=== PATIENT | female | born 1960 | race American Indian/Alaskan Native ===

== ENCOUNTER 2016-04-20 11:12 | Inpatient (IN) | payer MEDICARE ==
[2016-04-20 12:55] LABS: Basophils % (Auto) 0.7 % (0.0-1.8); Eosinophils % (Auto) 1.1 % (0.0-4.3); Hematocrit 26.4 % (30.3-42.9); Hemoglobin 8.5 gm/dl (10.1-14.3); Mean Corpuscular HGB Conc 32 % (30-34); Mean Corpuscular Hemoglobin 30 pg (28-32); Mean Corpuscular Volume 94 fl (79-97); Platelet Count 243 K/mm3 (140-440); Red Blood Count 2.82 M/mm3 (3.65-5.03); Red Cell Distribution Width 15.6 % (13.2-15.2); White Blood Count 7.7 K/mm3 (4.5-11.0)
[2016-04-20 13:15] LABS: BUN/Creatinine Ratio 15.75; Calcium 7.5 mg/dL (8.4-10.2); Chloride 103.3 mmol/L (98-107); Potassium 4.7 mmol/L (3.6-5.0)
--- NOTE | 2016-04-20 13:20 | XRay Report ---
Single view chest: Compared to 03/12/15. History: Lightheadedness, dizziness. Findings: Borderline cardiomegaly. Trachea is midline. No consolidation, pneumothorax or pleural effusion. Linear density left lower lobe without interval change. Impression: Linear density left lower lobe probably secondary to scarring. No acute lung changes.
--- NOTE | 2016-04-20 14:15 | Emergency Department Report ---
ED Syncope HPI - General Chief Complaint: Hypoglycemia Stated Complaint: PAINFUL MUSCLE SPASMS Time Seen by Provider: 04/20/16 13:36 Source: patient Exam Limitations: no limitations - History of Present Illness Initial Comments: 55 yo female with a past medical history of obesity, chronic renal insufficiency , lymphedema, CVA, DVT, hypertension, and Parkinson's disease presents to the hospital with tremors and syncopal episode. Patient was at a local urgent care taking a kidney care class when she developed worsening shaking and subsequent syncopal episode. Patient states she was trying to write with her right hand which she had significant shaking and was unable to write. She then states that bystanders told her that she fell back in the chair and was unresponsive. Accu-Chek was 43 in triage and patient given food to eat since she is alert. Patient denies any headache, chest pain, shortness of breath, nausea, vomiting, diarrhea, melena, or hematochezia. Patient has a history of diabetes in the past but due to recurrent hypoglycemia on her diabetes medications have been discontinued. Patient has been off of all diabetes medication for the past 3 months. She did not have anything to eat today prior to her kidney care class. Patient also states she has been off of her Parkinson's medications Requip for at least 2 years because her neurologist moved and her PMD has yet to refer her to a new one. Pt was diagnosed with Parkinson in the . Pt is actually scheduled to see a new PMD tomorrow. - Related Data Allergies/Adverse Reactions: Allergies clindamycin Allergy (Severe, Verified 11/05/14 13:20) Itching ibuprofen Allergy (Verified 11/03/14 08:12) Unknown Penicillins Allergy (Verified 04/20/16 11:58) Swelling pt states that she is not allergic to penicillins Home Medications: Ambulatory Orders Ranitidine HCl [Zantac 75 MG TAB] 150 mg PO QDAY 11/03/14 Tizanidine HCl [Zanaflex] 4 mg PO TID PRN 11/03/14 Topiramate [Topamax] 100 mg PO BID 11/09/14 Levothyroxine [Synthroid] 112 mcg PO DAILY@0600 03/07/15 Simvastatin [Zocor TAB] 40 mg PO QHS 03/07/15 ALBUTEROL Inhaler [ProAir HFA Inhaler] 2 puff IH QID PRN 12/10/15 Acarbose [Precose] 25 mg PO TID 12/10/15 Gabapentin [Neurontin] 300 mg PO Q8HR 12/10/15 Losartan [Cozaar] 100 mg PO QDAY 12/10/15 Metolazone [Zaroxolyn] 5 mg PO QDAY 12/10/15 Nortriptyline [Pamelor] 10 mg PO QHS 12/10/15 Ropinirole HCl [Requip] 0.5 mg PO TID 12/10/15 Torsemide [Demadex] 40 mg PO BID 12/10/15 oxyCODONE /ACETAMINOPHEN [Percocet 5/325 mg] 1 tab PO Q4HR 12/10/15 Sitagliptin Phosphate [Januvia] 50 mg PO DAILY #30 tablet 12/11/15 ED Review of Systems ROS: Stated complaint: PAINFUL MUSCLE SPASMS Other details as noted in HPI Comment: All other systems reviewed and negative Other: Constitutional: No fevers chills or weight loss Eyes: No eye pain visual changes or discharge ENT: No ear pain or throat pain Neck: Denies pain Respiratory: Denies cough wheezing shortness of breath Cardiovascular: Denies chest pain, palpitations GI: Denies abdominal pain, nausea, vomiting, diarrhea, melena, hematochezia : Denies dysuria Musculoskeletal: chronic leg edema Skin: chronic foot ulceres Neurologic: Denies headache, numbness, weakness. Chronic tremor right greater than left Psychiatric: ED Past Medical Hx - Past Medical History Hx Hypertension: Yes Hx CVA: No (TIA) Hx Congestive Heart Failure: Yes Hx Diabetes: Yes (1985, not on meds) Hx Deep Vein Thrombosis: Yes (LUE) Hx GERD: Yes Hx Arthritis: Yes Hx Headaches / Migraines: Yes Hx Seizures: No Hx Asthma: No Hx COPD: Yes Additional medical history: TIA, Parkinsons. anemia. LYMPHEDEMA - Surgical History Hx Pacemaker: No Hx Internal Defibrillator: No Additional Surgical History: x 3. carpel tunnel x 2. eye surgery. gastric bypass. thyroidectomy - Social History Smoking Status: Never Smoker - Medications Home Medications: Home Medications Medication Instructions Recorded Confirmed Last Taken Type Ranitidine HCl [Zantac 75 MG TAB] 150 mg PO QDAY 11/03/14 12/10/15 03/06/15 History Tizanidine HCl [Zanaflex] 4 mg PO TID PRN 11/03/14 12/10/15 03/06/15 History Topiramate [Topamax] 100 mg PO BID 11/09/14 12/10/15 03/06/15 History Levothyroxine [Synthroid] 112 mcg PO DAILY@0600 03/07/15 12/10/15 03/06/15 History Simvastatin [Zocor TAB] 40 mg PO QHS 03/07/15 12/10/15 03/06/15 History ALBUTEROL Inhaler [ProAir HFA 2 puff IH QID PRN 12/10/15 12/10/15 Unknown History Inhaler] Acarbose [Precose] 25 mg PO TID 12/10/15 12/10/15 Unknown History Gabapentin [Neurontin] 300 mg PO Q8HR 12/10/15 12/10/15 Unknown History Losartan [Cozaar] 100 mg PO QDAY 12/10/15 12/10/15 Unknown History Metolazone [Zaroxolyn] 5 mg PO QDAY 12/10/15 12/10/15 Unknown History Nortriptyline [Pamelor] 10 mg PO QHS 12/10/15 12/10/15 Unknown History Ropinirole HCl [Requip] 0.5 mg PO TID 12/10/15 12/10/15 Unknown History Torsemide [Demadex] 40 mg PO BID 12/10/15 12/10/15 Unknown History oxyCODONE /ACETAMINOPHEN [Percocet 1 tab PO Q4HR 12/10/15 12/10/15 Unknown History 5/325 mg] Sitagliptin Phosphate [Januvia] 50 mg PO DAILY #30 tablet 12/11/15 Unknown Rx ED Physical Exam - General Limitations: Physical Limitation - Other Other exam information: General: No limitations, patient is alert in no acute distress Head exam: Atraumatic, normocephalic Eyes exam: Normal appearance ENT: Moist mucous membrane, normal oropharynx Neck exam: Normal inspection, full range of motion Respiratory exam: Clear to auscultation bilateral, no wheezes, rales, crackles Cardiovascular: Normal rate and rhythm, normal heart sounds Abdomen: Soft, nondistended, and nontender, with normal bowel sounds, no rebound, or guarding Extremity: Bilateral lymphedema Back: Normal Inspection, full range of motion, no tenderness Neurologic: Alert, oriented x3, cranial nerves intact, no motor or sensory deficit. Intention tremor right arm greater than the left. Psychiatric: normal affect, normal mood ED Course Vital Signs 04/20/16 04/20/16 04/20/16 11:43 12:29 13:00 Temperature 98.7 F Pulse Rate 100 H 90 84 Respiratory 18 12 9 L Rate Blood Pressure 136/86 129/99 O2 Sat by Pulse 100 Oximetry 04/20/16 14:00 Temperature Pulse Rate 98 H Respiratory 17 Rate Blood Pressure 137/81 O2 Sat by Pulse Oximetry - Reevaluation(s) Reevaluation #1: 04/20/16 16:06 PT glucose improved with food - Consultations Consultation #1: 04/20/16 15:05 Case d/w Rachna/ Neprology. Will have group consult ED Medical Decision Making - Lab Data Result diagrams: 04/20/16 12:43 04/20/16 12:43 Lab Results 04/20/16 04/20/16 04/20/16 Range/Units 12:34 12:43 12:43 WBC 7.7 (4.5-11.0) K/mm3 RBC 2.82 L (3.65-5.03) M/mm3 Hgb 8.5 L (10.1-14.3) gm/dl Hct 26.4 L (30.3-42.9) % MCV 94 (79-97) fl MCH 30 (28-32) pg MCHC 32 (30-34) % RDW 15.6 H (13.2-15.2) % Plt Count 243 (140-440) K/mm3 Lymph % (Auto) 11.9 L (13.4-35.0) % [place] % (Auto) 6.4 (0.0-7.3) % Eos % (Auto) 1.1 (0.0-4.3) % Baso % (Auto) 0.7 (0.0-1.8) % Lymph # 0.9 L (1.2-5.4) K/mm3 [place] # 0.5 (0.0-0.8) K/mm3 Eos # 0.1 (0.0-0.4) K/mm3 Baso # 0.1 (0.0-0.1) K/mm3 Seg Neutrophils % 79.9 H (40.0-70.0) % Seg Neutrophils # 6.2 (1.8-7.7) K/mm3 Sodium 141 (137-145) mmol/L Potassium 4.7 (3.6-5.0) mmol/L Chloride 103.3 (98-107) mmol/L Carbon Dioxide 23 (22-30) mmol/L Anion Gap 19 mmol/L BUN 63 H (7-17) mg/dL Creatinine 4.0 H (0.7-1.2) mg/dL Estimated GFR 14 ml/min BUN/Creatinine Ratio 15.75 % Glucose 104 H (65-100) mg/dL POC Glucose 105 (70-105) Calcium 7.5 L (8.4-10.2) mg/dL Total Creatine Kinase (30-135) units/L CK-MB (CK-2) (0.0-4.0) ng/mL CK-MB (CK-2) Rel Index (0-4) Troponin T (0.00-0.029) ng/mL Triglycerides (2-149) mg/dL Cholesterol (50-199) mg/dL LDL Cholesterol Direct (50-130) mg/dL HDL Cholesterol (40-59) mg/dL Cholesterol/HDL Ratio % Urine Color (Yellow) Urine Turbidity (Clear) Urine pH (5.0-7.0) Ur Specific [place] (1.003-1.030) Urine Protein (Negative) mg/dL Urine Glucose (UA) (Negative) mg/dL Urine Ketones (Negative) mg/dL Urine Blood (Negative) Urine Nitrite (Negative) Urine Bilirubin (Negative) Urine Urobilinogen (<2.0) mg/dL Ur Leukocyte Esterase (Negative) Urine WBC (Auto) (0.0-6.0) /HPF Urine RBC (Auto) (0.0-6.0) /HPF U Epithel Cells (Auto) (0-13.0) /HPF 04/20/16 04/20/16 Range/Units 12:43 14:15 WBC (4.5-11.0) K/mm3 RBC (3.65-5.03) M/mm3 Hgb (10.1-14.3) gm/dl Hct (30.3-42.9) % MCV (79-97) fl MCH (28-32) pg MCHC (30-34) % RDW (13.2-15.2) % Plt Count (140-440) K/mm3 Lymph % (Auto) (13.4-35.0) % [place] % (Auto) (0.0-7.3) % Eos % (Auto) (0.0-4.3) % Baso % (Auto) (0.0-1.8) % Lymph # (1.2-5.4) K/mm3 [place] # (0.0-0.8) K/mm3 Eos # (0.0-0.4) K/mm3 Baso # (0.0-0.1) K/mm3 Seg Neutrophils % (40.0-70.0) % Seg Neutrophils # (1.8-7.7) K/mm3 Sodium (137-145) mmol/L Potassium (3.6-5.0) mmol/L Chloride (98-107) mmol/L Carbon Dioxide (22-30) mmol/L Anion Gap mmol/L BUN (7-17) mg/dL Creatinine (0.7-1.2) mg/dL Estimated GFR ml/min BUN/Creatinine Ratio % Glucose (65-100) mg/dL POC Glucose (70-105) Calcium (8.4-10.2) mg/dL Total Creatine Kinase 541 H (30-135) units/L CK-MB (CK-2) 12.6 H (0.0-4.0) ng/mL CK-MB (CK-2) Rel Index 2.3 (0-4) Troponin T 0.042 H (0.00-0.029) ng/mL Triglycerides 92 (2-149) mg/dL Cholesterol 177 (50-199) mg/dL LDL Cholesterol Direct 56 (50-130) mg/dL HDL Cholesterol 103 H (40-59) mg/dL Cholesterol/HDL Ratio 1.71 % Urine Color Yellow (Yellow) Urine Turbidity Clear (Clear) Urine pH 5.0 (5.0-7.0) Ur Specific [place] 1.014 (1.003-1.030) Urine Protein 100 mg/dl (Negative) mg/dL Urine Glucose (UA) Neg (Negative) mg/dL Urine Ketones Neg (Negative) mg/dL Urine Blood Neg (Negative) Urine Nitrite Neg (Negative) Urine Bilirubin Neg (Negative) Urine Urobilinogen < 2.0 (<2.0) mg/dL Ur Leukocyte Esterase Neg (Negative) Urine WBC (Auto) 1.0 (0.0-6.0) /HPF Urine RBC (Auto) 1.0 (0.0-6.0) /HPF U Epithel Cells (Auto) < 1.0 (0-13.0) /HPF - EKG Data -: EKG Interpreted by Me (nsr rate 86 no stemi) - Medical Decision Making Plan to the patient to the hospital for further observation to syncopal episode likely related to hypoglycemia. No signs of infection at this time. Patient does however have worsening renal function compared to previous creatinine levels. In Store Marketing Representative has been consulted. - Differential Diagnosis hypoglycemia, parkinsons, infection, fasting hypoglycemis Critical Care Time: No Critical care attestation.: If time is entered above; I have spent that time in minutes in the direct care of this critically ill patient, excluding procedure time. ED Disposition Clinical Impression: Tremors of nervous system, Hypoglycemia, Syncope, Acute on chronic kidney failure, Parkinsons Disposition: OP ADMITTED IP TO THIS HOSP Is pt being admited?: Yes Condition: Stable Time of Disposition: 14:19 (Dr Toure/hosp)
--- NOTE | 2016-04-20 14:26 | Admit Criteria Form ---
Admission Criteria Documentation: SYNCOPE Clinical Indications for Admission to Inpatient Care ( Place 'X' for any and all applicable criteria): Admission is indicated for syncope and ANY ONE of the following (1)(2)(3)(4)(5) (6)(7) : [X ]I. Inpatient admission required rather than observation care (Also use Syncope: Observation Care Criteria as appropriate) because of ANY ONE of the following: [ ]a) Hemodynamic instability that is severe or persistent [ ]b) Cardiac arrhythmias of immediate concern identified or strongly suspected (eg, needs electrophysiologic study) [ ]c) Acute coronary syndrome identified (Also use Myocardial Infarction or Angina Criteria form ) [ ]d) Structural cardiac disorder (eg, aortic stenosis) suspected as cause that requires immediate correction [ ]e) Respiratory symptoms (eg, dyspnea, tachypnea) that are severe or persistent [ ]f) Neurologic signs or symptoms that are severe or persistent ( eg, stroke, seizures, altered mental status) [ ]g) Severe electrolyte abnormalities requiring inpatient care [ ]h) Supplemental oxygen or respiratory treatment for over 24 hrs that are performable only in acute inpatient setting [ ]i) IV fluid to replace significant ongoing (eg, for over 24 hrs ) losses (>3 L/m2 per day) [ ]j) Continuous intravenous infusion of anticoagulation, platelet inhibitor, vasoactive, or antiarrhythmic medication(15)(16) [ ]k) Pulmonary artery catheter monitoring [ ]l) Temporary pacemaker placement(17) [ ]m) Emergent cardioversion(18) [ X]n) Other conditions, treatment or monitoring requiring inpatient admission [ ]II. Suspicion of imminently dangerous cause (eg, rare causes like pericardial tamponade, pulmonary embolism) [ ]III. Syncope causing severe injury requiring hospitalization Extended stay beyond goal length of stay may be needed for(28) [ ]a) Dangerous arrhythmia(15)(23)(27)(29) [ ]b) Myocardial ischemia [ ]c) Seizure disorder [ ]d) Syncope-related injuries The original [employer] content created by [email or web address] has been revised. The portions of the content which have been revised are identified through the use of italic text or in bold, and [email or web address] has neither reviewed nor approved the modified material. All other unmodified content is copyright [employer] [email or web address]. Please see references footnoted in the original [facility] edition 2016 Admission Criteria Met: Yes
[2016-04-20 14:32] LABS: Bilirubin,Urine NEG (Negative); Blood,Urine NEG (Negative); Ketones,Urine NEG (Negative); Leukocyte Esterase,Urine NEG (Negative); Nitrite,Urine NEG (Negative); Urobilinogen,Urine < 2.0 mg/dL (<2.0)
[2016-04-20 15:14] LABS: Creatine Kinase MB 12.6 ng/mL (0.0-4.0)
--- NOTE | 2016-04-20 16:35 | Consultation ---
History of Present Illness - History of Present Illness Thank you for the consultation Patient was evaluated in the ER room 22 Currently being followed by Dr. Montenegro in our practice noted to have advanced renal failure Assessment and plan acute renal failure in a patient who does have history of chronic kidney disease however her creatinine was around 2 in December 2015 patient's current creatinine is markedly elevated and clinically she does appear to be prerenal to me At this time I would definitely recommend holding off her diuretics as well as angiotensin receptor cristin to desist hydration obtain labs renal imaging and follow-up on the renal function in the outpatient setting patient has been referred for renal dietitian evaluation as well as kidney Smart classes well Anemia moderately severe may benefit from erythropoietin therapy consider workup including B12 folic acid iron panel, Currently admitted with syncopal spell/ ? due o hypoglycemia Tremor somewhat worse in the currently she is on gabapentin? Uremic complement Patient was recently seen by Dr. Montenegro would like to check her clinic record prior history of for chronic kidney disease, lymphedema, CVA, DVT, hypertension , Parkinson's disease Counseling and education was done regarding renal related issues we'll continue to follow and make recommendation from renal standpoint Medications and Allergies Allergies Allergy/AdvReac Type Severity Reaction Status Date / Time clindamycin Allergy Severe Itching Verified 11/05/14 13:20 ibuprofen Allergy Unknown Verified 11/03/14 08:12 Penicillins Allergy Swelling Verified 04/20/16 11:58 Home Medications Medication Instructions Recorded Confirmed Last Taken Type Ranitidine HCl [Zantac 75 MG TAB] 150 mg PO QDAY 11/03/14 04/20/16 03/06/15 History Topiramate [Topamax] 100 mg PO BID 11/09/14 04/20/16 03/06/15 History Levothyroxine [Synthroid] 112 mcg PO DAILY@0600 03/07/15 04/20/16 03/06/15 History Simvastatin [Zocor TAB] 40 mg PO QHS 03/07/15 04/20/16 03/06/15 History ALBUTEROL Inhaler [ProAir HFA 2 puff IH QID PRN 12/10/15 04/20/16 Unknown History Inhaler] Acarbose [Precose] 25 mg PO TID 12/10/15 04/20/16 Unknown History Gabapentin [Neurontin] 300 mg PO Q8HR 12/10/15 04/20/16 Unknown History Losartan [Cozaar] 100 mg PO QDAY 12/10/15 04/20/16 Unknown History Metolazone [Zaroxolyn] 5 mg PO QDAY 12/10/15 04/20/16 Unknown History Nortriptyline [Pamelor] 10 mg PO QHS 12/10/15 04/20/16 Unknown History Ropinirole HCl [Requip] 0.5 mg PO TID 12/10/15 04/20/16 Unknown History Torsemide [Demadex] 40 mg PO BID 12/10/15 04/20/16 Unknown History oxyCODONE /ACETAMINOPHEN [Percocet 1 tab PO Q4HR 12/10/15 04/20/16 Unknown History 5/325 mg] Sitagliptin Phosphate [Januvia] 50 mg PO DAILY #30 tablet 12/11/15 04/20/16 Unknown Rx Exam - Vital Signs Vital signs: Vital Signs Temp Pulse Resp BP Pulse Ox 98.7 F 100 H 18 136/86 100 04/20/16 11:43 04/20/16 11:43 04/20/16 11:43 04/20/16 11:43 04/20/16 11:43 Results - Lab Results 04/21/16 14:53 04/22/16 13:10 Most recent lab results Calcium 7.5 mg/dL (8.4-10.2) L 04/20/16 12:43
[2016-04-20] MEDS ORDERED: PERCOCET 5/325 PO ONE (17:30)
[2016-04-21] MEDS ORDERED: PROAIR IH PRN (00:58)
--- NOTE | 2016-04-21 00:58 | Event Note ---
Date: 04/20/16 See H/p in reports Syncope and collapse CKD HTN Parkinson's disease
[2016-04-21] MEDS ORDERED: PROVENTIL IH PRN (01:36)
[2016-04-21] MEDS: NEURONTIN PO SCH ×3 (03:16→17:22)
[2016-04-21] MEDS: SYNTHROID PO SCH (06:13)
--- NOTE | 2016-04-21 08:49 | Progress Note ---
Assessment and Plan acute kidney injury in a patient was multiple risk factors for underlying chronic kidney disease Patient clinically appears to be doing well and is in need for daily monitoring of her basic metabolic profile Currently she does have indwelling Wan catheter and her urine output has been good I have advised her to increase her oral intake of fluid at this time and continue to hold any form off diuretics, BERNADETTE inhibitor, angiotensin receptor cristin like medications proteinuria noted approximately 100 mg in the random specimen her creatinine usually has been in the range of 2 blood pressure has been adequately controlled Monitor renal function checked the result of renal imaging no indication for renal replacement therapy We'll continue to follow make recommendation from renal standpoint Subjective Interval history: Patient was seen today for follow-up on multiple renal related issues Events of 24 hours vitals labs intake output medications were reviewed currently does have a Wan catheter which is draining myriam to dark color urine Interdisciplinary Notes were also reviewed Patient denies any complaints of chest pain pressure or shortness of breath Objective - Vital Signs Vital signs: Vital Signs - 12hr 04/21/16 04/21/16 04/21/16 00:47 01:00 05:26 Temperature 98.1 F 97.6 F Pulse Rate 96 H Pulse Rate [ 64 86 From Monitor] Respiratory 18 20 Rate Blood Pressure 121/72 133/80 [Left Arm] O2 Sat by Pulse 100 98 Oximetry - General Appearance General appearance: appears stated age EENT: mucous membranes moist (no acute distress) Neck: no JVD Respiratory: Present: Clear to Ascultation (o crackles rales wheezes distant breath sound obese chest wall) Cardiology: regular (S1-S2 heard no S3-S4) Gastrointestinal: normal (nontender abdomen) Integumentary: other (dry skin morbidly obese legs) Neurologic: other (alert awake follows,) - Lab 04/20/16 12:43 04/20/16 12:43 Most recent lab results Calcium 7.5 mg/dL (8.4-10.2) L 04/20/16 12:43
[2016-04-21 09:16] LABS: Creatine Kinase MB 7.7 ng/mL (0.0-4.0)
[2016-04-21] MEDS ORDERED: ZAROXOLYN PO SCH (10:00)
[2016-04-21] MEDS ORDERED: DEMADEX PO SCH (10:00)
[2016-04-21] MEDS ORDERED: COZAAR PO SCH (10:00)
[2016-04-21] MEDS: TOPAMAX PO SCH ×2 (10:42→22:19)
[2016-04-21] MEDS: REQUIP PO SCH ×3 (10:43→20:58)
[2016-04-21] MEDS: PEPCID PO SCH (10:46)
[2016-04-21] MEDS: TRADJENTA PO SCH (10:46)
[2016-04-21] MEDS: PERCOCET 5/325 PO PRN ×2 (11:23→22:22)
[2016-04-21] MEDS: NACL 0.9% 1000 ML 1,000 ML IV SCH ×2 (11:40→18:36)
--- NOTE | 2016-04-21 12:11 | Ultrasound Report ---
RENAL SONOGRAM: HISTORY: Acute renal failure. FINDINGS: Right kidney measures 9.3 x 4.8 x 5.3 cm. Cortical thickness 1.5 cm. No mass. No hydronephrosis. Left kidney measures 7.4 x 4.5 x 5.5 cm. Cortical thickness 1.3 cm. No mass. No hydronephrosis. Kidneys are bilaterally hyperechoic. IMPRESSION: Bilateral hyperechoic small kidneys. No mass or hydronephrosis.
--- NOTE | 2016-04-21 13:05 | Progress Note ---
Assessment and Plan Assessment and plan: Syncope. Obtain Echocardiogram, Orthostatic vitals. On NS ESRD on hemodialysis. nephrology following. Diabetes mellitus type 2. fingerstick qac and hs. On Tradjenta. Hypertension Anemia due to ESRD DVT prophylaxis. SCDs, Heparin History Interval history: patient presented with syncope, no chest pain Hospitalist Physical - Physical exam Narrative exam: Gen. appearance: not in acute distress HEENT: Normocephalic atraumatic Neck: supple no JVD Lungs: Clear to auscultation bilaterally, no crackles or wheezes Heart: S1-S2 regular, no murmurs, rubs or gallop Abdomen:soft, non-tender, non-distended, normal bowel sounds Extremity: No edema, no clubbing, no cyanosis Neuro : Awake alert oriented 3, no focal neurologic signs Psychiatry: normal mood Skin: no rashes - Constitutional Vitals: Temp Pulse Resp BP Pulse Ox 97.8 F 89 20 151/84 100 04/21/16 10:03 04/21/16 10:54 04/21/16 10:03 04/21/16 10:44 04/21/16 10:03 Results - Labs CBC & Chem 7: 04/21/16 14:53 04/21/16 14:53 Labs: Laboratory Last Values WBC 7.7 K/mm3 (4.5-11.0) 04/20/16 12:43 RBC 2.82 M/mm3 (3.65-5.03) L 04/20/16 12:43 Hgb 8.5 gm/dl (10.1-14.3) L 04/20/16 12:43 Hct 26.4 % (30.3-42.9) L 04/20/16 12:43 MCV 94 fl (79-97) 04/20/16 12:43 MCH 30 pg (28-32) 04/20/16 12:43 MCHC 32 % (30-34) 04/20/16 12:43 RDW 15.6 % (13.2-15.2) H 04/20/16 12:43 Plt Count 243 K/mm3 (140-440) 04/20/16 12:43 Lymph % (Auto) 11.9 % (13.4-35.0) L 04/20/16 12:43 [place] % (Auto) 6.4 % (0.0-7.3) 04/20/16 12:43 Eos % (Auto) 1.1 % (0.0-4.3) 04/20/16 12:43 Baso % (Auto) 0.7 % (0.0-1.8) 04/20/16 12:43 Lymph # 0.9 K/mm3 (1.2-5.4) L 04/20/16 12:43 [place] # 0.5 K/mm3 (0.0-0.8) 04/20/16 12:43 Eos # 0.1 K/mm3 (0.0-0.4) 04/20/16 12:43 Baso # 0.1 K/mm3 (0.0-0.1) 04/20/16 12:43 Seg Neutrophils % 79.9 % (40.0-70.0) H 04/20/16 12:43 Seg Neutrophils # 6.2 K/mm3 (1.8-7.7) 04/20/16 12:43 Sodium 141 mmol/L (137-145) 04/20/16 12:43 Potassium 4.7 mmol/L (3.6-5.0) 04/20/16 12:43 Chloride 103.3 mmol/L (98-107) 04/20/16 12:43 Carbon Dioxide 23 mmol/L (22-30) 04/20/16 12:43 Anion Gap 19 mmol/L 04/20/16 12:43 BUN 63 mg/dL (7-17) H 04/20/16 12:43 Creatinine 4.0 mg/dL (0.7-1.2) H 04/20/16 12:43 Estimated GFR 14 ml/min 04/20/16 12:43 BUN/Creatinine Ratio 15.75 % 04/20/16 12:43 Glucose 104 mg/dL (65-100) H 04/20/16 12:43 POC Glucose 85 (70-105) 04/21/16 09:00 Osmolality 366 Mosm/kg 04/20/16 18:56 Uric Acid 7.4 mg/dL (3.5-7.6) 04/20/16 18:56 Calcium 7.5 mg/dL (8.4-10.2) L 04/20/16 12:43 Total Creatine Kinase 280 units/L (30-135) H 04/21/16 08:42 CK-MB (CK-2) 7.7 ng/mL (0.0-4.0) H 04/21/16 08:42 CK-MB (CK-2) Rel Index 2.7 (0-4) 04/21/16 08:42 Troponin T 0.024 ng/mL (0.00-0.029) 04/21/16 08:42 Triglycerides 92 mg/dL (2-149) 04/20/16 12:43 Cholesterol 177 mg/dL (50-199) 04/20/16 12:43 LDL Cholesterol Direct 56 mg/dL (50-130) 04/20/16 12:43 HDL Cholesterol 103 mg/dL (40-59) H 04/20/16 12:43 Cholesterol/HDL Ratio 1.71 % 04/20/16 12:43 Urine Color Yellow (Yellow) 04/20/16 14:15 Urine Turbidity Clear (Clear) 04/20/16 14:15 Urine pH 5.0 (5.0-7.0) 04/20/16 14:15 Ur Specific [place] 1.014 (1.003-1.030) 04/20/16 14:15 Urine Protein 100 mg/dl mg/dL (Negative) 04/20/16 14:15 Urine Glucose (UA) Neg mg/dL (Negative) 04/20/16 14:15 Urine Ketones Neg mg/dL (Negative) 04/20/16 14:15 Urine Blood Neg (Negative) 04/20/16 14:15 Urine Nitrite Neg (Negative) 04/20/16 14:15 Urine Bilirubin Neg (Negative) 04/20/16 14:15 Urine Urobilinogen < 2.0 mg/dL (<2.0) 04/20/16 14:15 Ur Leukocyte Esterase Neg (Negative) 04/20/16 14:15 Urine WBC (Auto) 1.0 /HPF (0.0-6.0) 04/20/16 14:15 Urine RBC (Auto) 1.0 /HPF (0.0-6.0) 04/20/16 14:15 U Epithel Cells (Auto) < 1.0 /HPF (0-13.0) 04/20/16 14:15
[2016-04-21 14:55] LABS: Bilirubin,Urine NEG (Negative); Blood,Urine SM (Negative); Ketones,Urine NEG (Negative); Leukocyte Esterase,Urine TR (Negative); Mucus,Urine FEW /HPF; Nitrite,Urine NEG (Negative); Urobilinogen,Urine < 2.0 mg/dL (<2.0)
[2016-04-21 19:00] LABS: Hematocrit 25.5 % (30.3-42.9); Hemoglobin 8.2 gm/dl (10.1-14.3); Mean Corpuscular HGB Conc 32 % (30-34); Mean Corpuscular Hemoglobin 31 pg (28-32); Mean Corpuscular Volume 95 fl (79-97); Platelet Count 231 K/mm3 (140-440); Red Blood Count 2.68 M/mm3 (3.65-5.03); Red Cell Distribution Width 15.2 % (13.2-15.2); White Blood Count 5.8 K/mm3 (4.5-11.0)
[2016-04-21 19:21] LABS: BUN/Creatinine Ratio 17.71; Calcium 7.3 mg/dL (8.4-10.2); Chloride 102.5 mmol/L (98-107)
[2016-04-21] MEDS: PAMELOR PO SCH (22:19)
[2016-04-21] MEDS: ZOCOR PO SCH (22:19)
--- NOTE | 2016-04-21 22:28 | History and Physical Report ---
CHIEF COMPLAINT: 1. Passed out. 2. Low sugar. HISTORY OF PRESENT ILLNESS: A 55-year-old female with a past medical history of hypertension, diabetes, chronic renal insufficiency, cerebrovascular accident who presents to the ER for passing out, was at local urgent care taking a ____ when she developed worsening shaking and subsequently passing out. The patient was trying to write with her right hand when she had significant shaking and was unable to write. The patient fell back in the chair and became unresponsive. Accu-Chek was 43 in triage and the patient was given food to eat. The patient has a history of diabetes in the past but due to recurrent hypoglycemia, all her diabetic medications have been discontinued. The patient also has been off her Parkinson's medications ____ at least 2 years because her neurologist moved and her PMD has had to refer her to a new one. The patient was diagnosed with Parkinson's in 1989. PAST MEDICAL HISTORY: As mentioned, gastroesophageal reflux disease, hypothyroidism, hyperlipidemia, asthma, type 2 diabetes, hypertension, CHF, and chronic pain. CURRENT MEDICATIONS: On the chart. PAST SURGICAL HISTORY: x 3, carpal tunnel surgery x 2, eye surgery, gastric bypass surgery, and thyroidectomy. SOCIAL HISTORY: Does not smoke. REVIEW OF SYSTEMS: Other than syncope, review of systems essentially negative. The patient also has a low blood sugar. A 14-point review of system was done. PHYSICAL EXAMINATION: GENERAL: Middle-aged female, cooperative during examination. VITAL SIGNS: Temperature 98.7, pulse is 100, respirations 18, blood pressure 136/86, sats are 100%. HEENT: Unremarkable. Pupils equal and reactive. NECK: Supple, no lymphadenopathy, no thyromegaly. LUNGS: Clear to auscultation and percussion. Good air entry. CARDIOVASCULAR: S1, S2 heard. No gallop, no murmur, no rub. Apical impulse in left fifth intercostal space and midclavicular line. ABDOMEN: Soft and benign. No hepatosplenomegaly. No guarding, no rigidity. Hernial orifices are normal. EXTREMITIES: Good pedal pulses. No pedal edema. NEUROLOGIC: No focal deficits. LABORATORY DATA IMAGING STUDIES: EKG shows a normal sinus rhythm at 86, no ST-T wave changes. Labs are significant for glucose of 104, BUN and creatinine of 63 and 4.0. Hemoglobin of 8.5, hematocrit of 26.4. Electrolytes are normal other than BUN and creatinine. Calcium is 7.5. Urine is negative. ASSESSMENT AND PLAN: 1. Syncope, probably secondary to hypoglycemia effect. We will correct the hypoglycemia. 2. Hypoglycemia. Adjust her medications. The patient is not on any oral hypoglycemics. The patient on acarbose, Precose, which may have to be decreased to twice a day. 3. Hypertension. Continue losartan 100 mg daily. 4. Hypothyroidism. Continue Synthroid 112 mcg daily. 5. Chronic kidney disease, going on to end-stage renal disease. Follow up with Nephrology. 6. Deep venous thrombosis prophylaxis, heparin 5000 b.i.d. In summary, the patient has syncope, hypoglycemia, chronic kidney disease, non-insulin dependent diabetes, hypertension, gastroesophageal reflux disease and parkinsonism. Carotid duplex scan ordered. Also, echocardiogram ordered. JOB# [id number] HEMA/NTS
[2016-04-22] MEDS: NEURONTIN PO SCH ×3 (02:01→18:53)
[2016-04-22] MEDS: NACL 0.9% 1000 ML 1,000 ML IV SCH ×2 (02:03→21:41)
[2016-04-22] MEDS: SYNTHROID PO SCH (05:58)
--- NOTE | 2016-04-22 09:54 | Progress Note ---
Assessment and Plan Acute kidney injury in a patient who does have history of underlying chronic kidney disease, patient's creatinine is currently improving was 3.5 yesterday Patient's baseline creatinine has been between 2 and 3 admitted with creatinine of approximately 4 Metabolic acidosis appears to be improving as well ultrasonogram shows echogenic kidneys to follow Proteinuria likely due to advanced kidney failure to follow Anemia and chronic kidney disease will give erythropoietin on a weekly basis Patient was still continuing to take diuretics as well as angiotensin receptor cristin which was discontinued Currently she seems to be tolerating IV fluid will urine color has become optical effects layout person she continues to have a Wan catheter that should be continued I have educated the patient had a pH she has any symptoms of cough shortness of breath will consider reducing the IV fluid otherwise continue as for now follow- up of the renal function Subjective Interval history: Patient was seen today for follow-up,tolerating IV fluid will urine is optical effects layout person in color no shortness of breath cough or wheezing Seems to be doing better has better understanding of renal issues Denies any complaints of chest pain pressure or shortness of breath Vitals labs events at 24 hours noted Objective - Vital Signs Vital signs: Vital Signs - 12hr 04/21/16 04/22/16 04/22/16 22:22 01:00 06:16 Temperature 98.4 F 98.2 F Pulse Rate [ 89 88 From Monitor] Respiratory 20 18 18 Rate Blood Pressure 131/67 136/71 [Left Arm] O2 Sat by Pulse 94 95 Oximetry - General Appearance General appearance: appears stated age EENT: mucous membranes moist Neck: no JVD Cardiology: regular Gastrointestinal: normal (morbidly obese nontender limited examination) Neurologic: no focal deficit Psychiatric: mood/affect appropriate - Lab 04/21/16 14:53 04/22/16 13:10 Most recent lab results Calcium 7.3 mg/dL (8.4-10.2) L 04/21/16 14:53 Urine Creatinine 39.3 mg/dL (0.1-20.0) H 04/21/16 14:24 Urine Sodium 96 mEq/L 04/21/16 14:24
[2016-04-22] MEDS: REQUIP PO SCH ×3 (10:26→20:58)
[2016-04-22] MEDS: PEPCID PO SCH (10:26)
[2016-04-22] MEDS: TOPAMAX PO SCH ×2 (10:26→21:40)
[2016-04-22] MEDS: HEPARIN SUB-Q SCH ×3 (10:26→21:41)
[2016-04-22] MEDS: TRADJENTA PO SCH (10:26)
[2016-04-22 13:44] LABS: BUN/Creatinine Ratio 16.11; Calcium 7.3 mg/dL (8.4-10.2); Chloride 105.4 mmol/L (98-107)
--- NOTE | 2016-04-22 15:31 | Progress Note ---
Assessment and Plan Assessment and plan: Syncope. Most syncopal episodes since admitted. Cardiology done report pending. Prostatic vitals every 8 hours. Continue normal saline. Acute on chronic kidney disease. Creatinine 3.6 today. Nephrology following. She is on NS @ 150 ml/hr. Diabetes mellitus type 2. fingerstick Qac and hs. On Tradjenta. Hypertension. Anemia due to chronic illness DVT prophylaxis. SCDs, Heparin Bilateral foot ulcers, chronic. She is being seen seen by wound care nurse Full code status History Interval history: patient presented with syncope, no chest pain Hospitalist Physical - Physical exam Narrative exam: Gen. appearance: not in acute distress, morbidly obese HEENT: Normocephalic atraumatic Neck: supple no JVD Lungs: Clear to auscultation bilaterally, no crackles or wheezes Heart: S1-S2 regular, no murmurs, rubs or gallop Abdomen:soft, non-tender, non-distended, normal bowel sounds Extremity: bilateral foot ulcers, covered with dressing, No edema, no clubbing, no cyanosis Neuro : Awake alert oriented 3, no focal neurologic signs Psychiatry: normal mood Skin: no rashes - Constitutional Vitals: Temp Pulse Resp BP Pulse Ox 98.1 F 84 20 125/75 97 04/22/16 10:15 04/22/16 10:15 04/22/16 10:15 04/22/16 10:15 04/22/16 10:15 Results - Labs CBC & Chem 7: 04/21/16 14:53 04/22/16 13:10 Labs: Laboratory Last Values WBC 5.8 K/mm3 (4.5-11.0) 04/21/16 14:53 RBC 2.68 M/mm3 (3.65-5.03) L 04/21/16 14:53 Hgb 8.2 gm/dl (10.1-14.3) L 04/21/16 14:53 Hct 25.5 % (30.3-42.9) L 04/21/16 14:53 MCV 95 fl (79-97) 04/21/16 14:53 MCH 31 pg (28-32) 04/21/16 14:53 MCHC 32 % (30-34) 04/21/16 14:53 RDW 15.2 % (13.2-15.2) 04/21/16 14:53 Plt Count 231 K/mm3 (140-440) 04/21/16 14:53 Lymph % (Auto) 11.9 % (13.4-35.0) L 04/20/16 12:43 [place] % (Auto) 6.4 % (0.0-7.3) 04/20/16 12:43 Eos % (Auto) 1.1 % (0.0-4.3) 04/20/16 12:43 Baso % (Auto) 0.7 % (0.0-1.8) 04/20/16 12:43 Lymph # 0.9 K/mm3 (1.2-5.4) L 04/20/16 12:43 Glenn # 0.5 K/mm3 (0.0-0.8) 04/20/16 12:43 Eos # 0.1 K/mm3 (0.0-0.4) 04/20/16 12:43 Baso # 0.1 K/mm3 (0.0-0.1) 04/20/16 12:43 Seg Neutrophils % 79.9 % (40.0-70.0) H 04/20/16 12:43 Seg Neutrophils # 6.2 K/mm3 (1.8-7.7) 04/20/16 12:43 Sodium 141 mmol/L (137-145) 04/22/16 13:10 Potassium 4.0 mmol/L (3.6-5.0) 04/22/16 13:10 Chloride 105.4 mmol/L (98-107) 04/22/16 13:10 Carbon Dioxide 23 mmol/L (22-30) 04/22/16 13:10 Anion Gap 17 mmol/L 04/22/16 13:10 BUN 58 mg/dL (7-17) H 04/22/16 13:10 Creatinine 3.6 mg/dL (0.7-1.2) H 04/22/16 13:10 Estimated GFR 16 ml/min 04/22/16 13:10 BUN/Creatinine Ratio 16.11 % 04/22/16 13:10 Glucose 112 mg/dL (65-100) H 04/22/16 13:10 POC Glucose 144 (70-105) H 04/22/16 07:51 Osmolality 366 Mosm/kg 04/20/16 18:56 Uric Acid 7.4 mg/dL (3.5-7.6) 04/20/16 18:56 Calcium 7.3 mg/dL (8.4-10.2) L 04/22/16 13:10 Total Creatine Kinase 280 units/L (30-135) H 04/21/16 08:42 CK-MB (CK-2) 7.7 ng/mL (0.0-4.0) H 04/21/16 08:42 CK-MB (CK-2) Rel Index 2.7 (0-4) 04/21/16 08:42 Troponin T 0.024 ng/mL (0.00-0.029) 04/21/16 08:42 Triglycerides 92 mg/dL (2-149) 04/20/16 12:43 Cholesterol 177 mg/dL (50-199) 04/20/16 12:43 LDL Cholesterol Direct 56 mg/dL (50-130) 04/20/16 12:43 HDL Cholesterol 103 mg/dL (40-59) H 04/20/16 12:43 Cholesterol/HDL Ratio 1.71 % 04/20/16 12:43 Urine Color Straw (Yellow) 04/21/16 14:24 Urine Turbidity Clear (Clear) 04/21/16 14:24 Urine pH 6.0 (5.0-7.0) 04/21/16 14:24 Ur Specific [place] 1.012 (1.003-1.030) 04/21/16 14:24 Urine Protein 100 mg/dl mg/dL (Negative) 04/21/16 14:24 Urine Glucose (UA) Neg mg/dL (Negative) 04/21/16 14:24 Urine Ketones Neg mg/dL (Negative) 04/21/16 14:24 Urine Blood Sm (Negative) 04/21/16 14:24 Urine Nitrite Neg (Negative) 04/21/16 14:24 Urine Bilirubin Neg (Negative) 04/21/16 14:24 Urine Urobilinogen < 2.0 mg/dL (<2.0) 04/21/16 14:24 Ur Leukocyte Esterase Tr (Negative) 04/21/16 14:24 Urine WBC (Auto) 8.0 /HPF (0.0-6.0) H 04/21/16 14:24 Urine RBC (Auto) 7.0 /HPF (0.0-6.0) 04/21/16 14:24 U Epithel Cells (Auto) < 1.0 /HPF (0-13.0) 04/21/16 14:24 Urine Mucus Few /HPF 04/21/16 14:24 Urine Creatinine 39.3 mg/dL (0.1-20.0) H 04/21/16 14:24 Urine Sodium 96 mEq/L 04/21/16 14:24
[2016-04-22] MEDS: ACARBOSE PO SCH (21:40)
[2016-04-22] MEDS: ZOCOR PO SCH (21:40)
[2016-04-22] MEDS: PAMELOR PO SCH (21:40)
[2016-04-23] MEDS: NEURONTIN PO SCH ×3 (02:00→18:34)
[2016-04-23] MEDS: NACL 0.9% 1000 ML 1,000 ML IV SCH (05:01)
[2016-04-23] MEDS: SYNTHROID PO SCH (05:13)
[2016-04-23] MEDS: HEPARIN SUB-Q SCH ×3 (05:13→21:21)
[2016-04-23] MEDS: PERCOCET 5/325 PO PRN (05:18)
[2016-04-23 05:58] LABS: BUN/Creatinine Ratio 16.76; Calcium 7.2 mg/dL (8.4-10.2); Chloride 108.5 mmol/L (98-107)
--- NOTE | 2016-04-23 07:59 | Progress Note ---
Assessment and Plan Acute renal failure in a patient who has known history of chronic kidney disease Patient's baseline creatinine has been around 2.6 and December 2015 Patient clinically appeared prerenal and has benefited from IV hydration does not have best to suggest acute tubular necrosis at this time Avoid diuretics as well as angiotensin receptor cristin or BERNADETTE inhibitor as like medication at this time Anemia and chronic kidney disease patient did receive erythropoietin Reduce the rate of hydration and encourage oral fluid-tomorrow Mild hypernatremia to be monitored She needs to be followed up in the clinic upon discharge-which should be done after creatinine has come down under 3 Education was done patient is very poorly compliant We'll continue to follow and make recommendations from renal standpoint Subjective Interval history: Seen today for follow-up patient still continues to have good urine output with the Wan catheter No complaints of any chest pain pressure or shortness of breath Events of 24 hours vitals labs intake output medications reviewed Objective - Vital Signs Vital signs: Vital Signs - 12hr 04/22/16 04/23/16 04/23/16 20:09 00:43 05:18 Temperature 98.5 F 97.6 F Pulse Rate [ 89 84 Left Radial] Respiratory 20 18 20 Rate Blood Pressure 146/82 121/68 [Left Arm] O2 Sat by Pulse 95 99 Oximetry 04/23/16 05:37 Temperature 98.2 F Pulse Rate [ 86 Left Radial] Respiratory 18 Rate Blood Pressure 148/63 [Left Arm] O2 Sat by Pulse 94 Oximetry - General Appearance General appearance: well-nourished (agrees) EENT: mucous membranes moist Neck: no JVD Respiratory: Present: Clear to Ascultation (no crackles rales wheezes) Cardiology: regular Gastrointestinal: normal (soft of these nontender) Integumentary: other (dry skin minimal edema) Psychiatric: other (alert and pleasant) - Lab 04/21/16 14:53 04/24/16 05:36 Most recent lab results Calcium 7.2 mg/dL (8.4-10.2) L 04/23/16 05:06 Urine Creatinine 39.3 mg/dL (0.1-20.0) H 04/21/16 14:24 Urine Sodium 96 mEq/L 04/21/16 14:24
[2016-04-23] MEDS: REQUIP PO SCH ×3 (09:07→21:21)
[2016-04-23] MEDS: ACARBOSE PO SCH ×3 (09:10→16:47)
[2016-04-23] MEDS: TRADJENTA PO SCH (10:43)
[2016-04-23] MEDS: TOPAMAX PO SCH ×2 (10:43→21:21)
[2016-04-23] MEDS: PEPCID PO SCH (10:43)
--- NOTE | 2016-04-23 17:22 | Progress Note ---
Assessment and Plan Assessment and plan: Syncope. No syncopal episodes since admitted. Orthostatic vitals every 8 hours. Continue normal saline. Acute on chronic kidney disease. Creatinine 3.4 today. Nephrology following. She is on NS @ 150 ml/hr. Diabetes mellitus type 2. fingerstick Qac and hs. On Tradjenta. Hypertension. Anemia due to chronic illness DVT prophylaxis. SCDs, Heparin Bilateral foot ulcers, chronic. She is being seen seen by wound care nurse Full code status History Interval history: patient presented with syncope, no chest pain, no shortness of breath Hospitalist Physical - Physical exam Narrative exam: Gen appearance: not in acute distress, morbidly obese HEENT: Normocephalic, atraumatic Neck: supple no JVD Lungs: Clear to auscultation bilaterally, no crackles or wheezes Heart: S1-S2 regular, no murmurs, rubs or gallop Abdomen: soft, non-tender, non-distended, normal bowel sounds Extremity: bilateral foot ulcers, covered with dressing, No edema, no clubbing, no cyanosis Neuro : Awake alert oriented 3, no focal neurologic signs Psychiatry: normal mood Skin: no rashes - Constitutional Vitals: Temp Pulse Resp BP Pulse Ox 97.9 F 81 20 152/84 96 04/23/16 08:05 04/23/16 11:00 04/23/16 08:05 04/23/16 08:05 04/23/16 08:05 Results - Labs CBC & Chem 7: 04/21/16 14:53 04/23/16 05:06 Labs: Laboratory Last Values WBC 5.8 K/mm3 (4.5-11.0) 04/21/16 14:53 RBC 2.68 M/mm3 (3.65-5.03) L 04/21/16 14:53 Hgb 8.2 gm/dl (10.1-14.3) L 04/21/16 14:53 Hct 25.5 % (30.3-42.9) L 04/21/16 14:53 MCV 95 fl (79-97) 04/21/16 14:53 MCH 31 pg (28-32) 04/21/16 14:53 MCHC 32 % (30-34) 04/21/16 14:53 RDW 15.2 % (13.2-15.2) 04/21/16 14:53 Plt Count 231 K/mm3 (140-440) 04/21/16 14:53 Lymph % (Auto) 11.9 % (13.4-35.0) L 04/20/16 12:43 [place] % (Auto) 6.4 % (0.0-7.3) 04/20/16 12:43 Eos % (Auto) 1.1 % (0.0-4.3) 04/20/16 12:43 Baso % (Auto) 0.7 % (0.0-1.8) 04/20/16 12:43 Lymph # 0.9 K/mm3 (1.2-5.4) L 04/20/16 12:43 [place] # 0.5 K/mm3 (0.0-0.8) 04/20/16 12:43 Eos # 0.1 K/mm3 (0.0-0.4) 04/20/16 12:43 Baso # 0.1 K/mm3 (0.0-0.1) 04/20/16 12:43 Seg Neutrophils % 79.9 % (40.0-70.0) H 04/20/16 12:43 Seg Neutrophils # 6.2 K/mm3 (1.8-7.7) 04/20/16 12:43 Sodium 146 mmol/L (137-145) H 04/23/16 05:06 Potassium 4.0 mmol/L (3.6-5.0) 04/23/16 05:06 Chloride 108.5 mmol/L (98-107) H 04/23/16 05:06 Carbon Dioxide 23 mmol/L (22-30) 04/23/16 05:06 Anion Gap 19 mmol/L 04/23/16 05:06 BUN 57 mg/dL (7-17) H 04/23/16 05:06 Creatinine 3.4 mg/dL (0.7-1.2) H 04/23/16 05:06 Estimated GFR 17 ml/min 04/23/16 05:06 BUN/Creatinine Ratio 16.76 % 04/23/16 05:06 Glucose 91 mg/dL (65-100) 04/23/16 05:06 POC Glucose 107 (70-105) H 04/22/16 20:23 Osmolality 366 Mosm/kg 04/20/16 18:56 Uric Acid 7.4 mg/dL (3.5-7.6) 04/20/16 18:56 Calcium 7.2 mg/dL (8.4-10.2) L 04/23/16 05:06 Total Creatine Kinase 280 units/L (30-135) H 04/21/16 08:42 CK-MB (CK-2) 7.7 ng/mL (0.0-4.0) H 04/21/16 08:42 CK-MB (CK-2) Rel Index 2.7 (0-4) 04/21/16 08:42 Troponin T 0.024 ng/mL (0.00-0.029) 04/21/16 08:42 Triglycerides 92 mg/dL (2-149) 04/20/16 12:43 Cholesterol 177 mg/dL (50-199) 04/20/16 12:43 LDL Cholesterol Direct 56 mg/dL (50-130) 04/20/16 12:43 HDL Cholesterol 103 mg/dL (40-59) H 04/20/16 12:43 Cholesterol/HDL Ratio 1.71 % 04/20/16 12:43 Urine Color Straw (Yellow) 04/21/16 14:24 Urine Turbidity Clear (Clear) 04/21/16 14:24 Urine pH 6.0 (5.0-7.0) 04/21/16 14:24 Ur Specific [place] 1.012 (1.003-1.030) 04/21/16 14:24 Urine Protein 100 mg/dl mg/dL (Negative) 04/21/16 14:24 Urine Glucose (UA) Neg mg/dL (Negative) 04/21/16 14:24 Urine Ketones Neg mg/dL (Negative) 04/21/16 14:24 Urine Blood Sm (Negative) 04/21/16 14:24 Urine Nitrite Neg (Negative) 04/21/16 14:24 Urine Bilirubin Neg (Negative) 04/21/16 14:24 Urine Urobilinogen < 2.0 mg/dL (<2.0) 04/21/16 14:24 Ur Leukocyte Esterase Tr (Negative) 04/21/16 14:24 Urine WBC (Auto) 8.0 /HPF (0.0-6.0) H 04/21/16 14:24 Urine RBC (Auto) 7.0 /HPF (0.0-6.0) 04/21/16 14:24 U Epithel Cells (Auto) < 1.0 /HPF (0-13.0) 04/21/16 14:24 Urine Mucus Few /HPF 04/21/16 14:24 Urine Creatinine 39.3 mg/dL (0.1-20.0) H 04/21/16 14:24 Urine Sodium 96 mEq/L 04/21/16 14:24
[2016-04-23] MEDS: PAMELOR PO SCH (21:20)
[2016-04-23] MEDS: ZOCOR PO SCH (21:21)
--- NOTE | 2016-04-23 22:31 | Consultation ---
REQUESTING PHYSICIAN: Aleksey Mcdermott MD REASON FOR CONSULTATION: Acute renal failure in a patient whose baseline creatinine is around 2s. HISTORY OF PRESENT ILLNESS: The patient is a pleasant 55-year-old -Greek female who is currently established in our clinic for chronic kidney disease care. The patient states that she was recently seen by Dr. Montenegro and at this time, she is preparing for dialysis as her renal function has been going down and she was also supposed to attend the [facility]. Review of the old records in our system shows that the patient's creatinine was around 2.3 in 12/2015 and currently she is being admitted with a creatinine of 4.0. The patient states that she is currently continuing to take all her medications I have advised including losartan, metolazone due to significant edema. She does admit having very poor lifestyle and eating habit. The patient does also complain of some dryness in her mouth. She also does complain of some increasing tremors in her hand, for which she has been seen by a prior neurologist and has been told to have a touch of Parkinson's disease for quite some time. The patient does not complain of any nausea. The patient came to the hospital due to profound hypoglycemia and significant muscle spasm. The patient states that prior to arrival, she started having shaking and subsequently had a syncopal spell. Blood sugar was around 43 in the triage when in the ER, the patient currently is feeling much better. PAST MEDICAL HISTORY: Significant for multiple medical problems including; 1. Chronic kidney disease. 2. Edema. 3. Chronic pain issues. 4. Hypothyroidism. 5. CVA. 6. DVT. 7. Parkinson's disease. 8. Obesity, morbid. 9. TIA. 10. Lymphedema. CURRENT ALLERGIES: Include clindamycin, ibuprofen, and penicillin. HOME MEDICATIONS: Include Zantac, tizanidine, topiramate, levothyroxine, simvastatin, albuterol, Acarbose, gabapentin, losartan, metolazone, nortriptyline, ____, torsemide, oxycodone, and sitagliptin. SOCIAL HISTORY: The patient denies history of alcohol, drug, or tobacco use. FAMILY HISTORY: Denies any history of any renal related disorder. REVIEW OF SYSTEMS: Positive for shaking, dizziness, lightheadedness, hypoglycemic spell dry mouth. Otherwise, essentially negative for all the other systems. No difficulty voiding, dysuria, burning, frequency of urination. PHYSICAL EXAMINATION: GENERAL: The patient is a 55-year-old -Greek female who is lying comfortably in bed, does not appear in acute distress. VITAL SIGNS: Reviewed from this admission. HEENT: Normocephalic and atraumatic skull. Extraocular movements are intact. NECK: Supple without thyromegaly or JVD. CHEST: Essentially clear to auscultation. No crackles, rales, or wheezes. HEART: Regular rate. S1, S2 heard. No S3 or S4. ABDOMEN: Soft, nontender. No voluntary guarding, rebound, organomegaly, or masses. Morbidly obese, limited examination due to obesity. EXTREMITIES: Morbidly obese legs. SKIN: Dry skin, reduced skin turgor. ENDOCRINE: Thyroid not enlarged. PSYCHIATRIC: The patient is pleasant. LABS AND X-RAYS: As of this admission reviewed. The patient's blood work shows a BUN of 63, creatinine of 4.0, sodium 141, potassium 4.7, chloride 103, bicarbonate 23. White cell count 7.7, hemoglobin 8.5, hematocrit 26.4, platelet count of 243,000. ASSESSMENT AND PLAN: 1. Acute kidney injury in a patient who has a history of chronic kidney disease, baseline creatinine is around 2 in December. The patient's creatinine is markedly elevated. She also does appear to be prerenal at this point. Need to rule out other causes for renal failure. We will get a comprehensive lab testing. Risk of progression to end-stage renal disease high, the patient may require renal replacement therapy if her renal function does not improve. 2. Clinically, appears to be volume depleted, admitted with hypoglycemia, which could be worsened due to underlying renal failure, which is also progressing in the setting of ongoing and oral hypoglycemic agents. 3. History of edema, but the patient does have morbid obesity, which can cause some edema. At this time, she does appear to be volume depleted and hence would like to stop her diuretics. 4. Due to acute renal failure, we will also consider discontinuing her losartan, so please do not give. Also, avoid any form of BERNADETTE inhibitors and angiotensin receptor blockers. 5. Anemia, moderately severe. We will check iron, B12, folic acid level. Management with erythropoietin therapy. 6. Currently admitted for a syncopal spell, hypoglycemia, to be monitored closely. 7. Tremors worsen ? due to uremia ? due to neurological problems. The patient was already on gabapentin. Plan of care discussed with the patient. All questions were answered. Renal prognosis remains very guarded at this time. Given the degree and severity of this renal failure, the patient may require renal replacement therapy. She is aware of that. At this time, we will advise that she should not receive any form of angiotensin receptor blockers or BERNADETTE inhibitors to keep her blood pressure systolic around 140-150. Monitor renal function closely, consider IV hydration. If renal function fails to improve, can consider renal replacement therapy, likelihood of ____ coverage good at this point. The patient needs to make significant lifestyle changes. She does have multiple risk factors for progression of renal failure over time otherwise, upon discharge will need to follow up in the office. Thank you for the consultation. We will continue to follow and make recommendations from renal standpoint. JOB# [id number] YOKO/ANNETTE
[2016-04-24] MEDS: SYNTHROID PO SCH (05:09)
[2016-04-24] MEDS: NEURONTIN PO SCH ×3 (05:10→21:35)
[2016-04-24] MEDS: HEPARIN SUB-Q SCH ×3 (05:10→21:35)
[2016-04-24] MEDS: PERCOCET 5/325 PO PRN (06:08)
[2016-04-24 06:58] LABS: BUN/Creatinine Ratio 17.18; Calcium 7.6 mg/dL (8.4-10.2); Chloride 106.8 mmol/L (98-107); Potassium 3.7 mmol/L (3.6-5.0)
[2016-04-24] MEDS: REQUIP PO SCH ×3 (08:48→21:35)
[2016-04-24] MEDS: ACARBOSE PO SCH ×3 (08:48→17:33)
[2016-04-24] MEDS: PEPCID PO SCH (09:30)
[2016-04-24] MEDS: TRADJENTA PO SCH (09:31)
[2016-04-24] MEDS: TOPAMAX PO SCH ×2 (09:31→21:35)
--- NOTE | 2016-04-24 11:16 | Progress Note ---
Assessment and Plan Acute kidney failure in a patient who has history of underlying chronic kidney disease currently being followed by Dr. Montenegro patient's baseline creatinine has been around 2.5-2.7 range admitted with a creatinine of 4 patient was felt to be prerenal mostly due to losartan as well as ongoing use of diuretics which has been stopped Patient's renal function appears to be improving at this time and is further risk of improvement she is going to change her diet and lifestyle and make a follow-up appointment office At this time I have instructed her to avoid excessive use of sodium, reduce fluid to approximately 2-3 L per day plain water and avoid any form of angiotensin receptor cristin or BERNADETTE inhibitor is Monitor closely her weight patient needs to be seen in the clinic for follow-up next week Overall she's doing much better if tomorrow her creatinine is better she can be considered for discharge Prognosis will depend on degree of compliance Have answered all her renal related questions and have adequately counseled her regarding role of diet and lifestyle changes that she has to make Subjective Interval history: Seen today for follow-up doing much better Wan's taken out she is alert awake no acute distress no chest pain Urine output is good vitals labs intake output medications were reviewed Objective - Vital Signs Vital signs: Vital Signs - 12hr 04/24/16 04/24/16 04/24/16 01:14 03:30 06:00 Temperature 98.2 F 98.1 F Pulse Rate 82 Pulse Rate [ Right Dorsalis Pedis] Pulse Rate [ 86 84 Right Radial] Respiratory 18 20 Rate Blood Pressure 146/97 146/94 [Left Arm] O2 Sat by Pulse 94 93 Oximetry 04/24/16 04/24/16 08:15 10:00 Temperature 97.9 F Pulse Rate 79 Pulse Rate [ 81 Right Dorsalis Pedis] Pulse Rate [ Right Radial] Respiratory 20 Rate Blood Pressure 158/94 [Left Arm] O2 Sat by Pulse 97 Oximetry - General Appearance General appearance: appears stated age EENT: mucous membranes moist Neck: no JVD Respiratory: Present: Clear to Ascultation Cardiology: regular Gastrointestinal: normal (soft nontender obese) Integumentary: other (dry skin no edema) Neurologic: other (alert awake follows commands) - Lab 04/21/16 14:53 04/24/16 05:36 Most recent lab results Calcium 7.6 mg/dL (8.4-10.2) L 04/24/16 05:36 Urine Creatinine 39.3 mg/dL (0.1-20.0) H 04/21/16 14:24 Urine Sodium 96 mEq/L 04/21/16 14:24
--- NOTE | 2016-04-24 12:04 | Progress Note ---
Assessment and Plan Assessment and plan: Syncope. No syncopal episodes since admitted. Orthostatic vitals every 8 hours. IV fluid NS discontinued. Acute on chronic kidney disease. Creatinine 3.2 today from 3.4 yesterday. Nephrology following. Hopefully d/c home tomorrow if Cr<3 Diabetes mellitus type 2. fingerstick Qac and hs. On Tradjenta. Hypertension. Anemia due to chronic illness DVT prophylaxis. SCDs, Heparin Bilateral foot ulcers, chronic. She is being seen seen by wound care nurse Full code status History Interval history: patient initially presented with syncope, no chest pain, no shortness of breath Hospitalist Physical - Physical exam Narrative exam: Gen appearance: not in acute distress, morbidly obese HEENT: Normocephalic, atraumatic Neck: supple no JVD Lungs: Clear to auscultation bilaterally, no crackles or wheezes Heart: S1-S2 regular, no murmurs, rubs or gallop Abdomen: soft, non-tender, non-distended, normal bowel sounds Extremity: bilateral foot ulcers, covered with dressing, No edema, no clubbing, no cyanosis Neuro : Awake alert oriented 3, no focal neurologic signs Psychiatry: normal mood Skin: no rashes - Constitutional Vitals: Temp Pulse Resp BP Pulse Ox 97.9 F 79 20 158/94 97 04/24/16 08:15 04/24/16 10:00 04/24/16 08:15 04/24/16 08:15 04/24/16 08:15 Results - Labs CBC & Chem 7: 04/21/16 14:53 04/24/16 05:36 Labs: Laboratory Last Values WBC 5.8 K/mm3 (4.5-11.0) 04/21/16 14:53 RBC 2.68 M/mm3 (3.65-5.03) L 04/21/16 14:53 Hgb 8.2 gm/dl (10.1-14.3) L 04/21/16 14:53 Hct 25.5 % (30.3-42.9) L 04/21/16 14:53 MCV 95 fl (79-97) 04/21/16 14:53 MCH 31 pg (28-32) 04/21/16 14:53 MCHC 32 % (30-34) 04/21/16 14:53 RDW 15.2 % (13.2-15.2) 04/21/16 14:53 Plt Count 231 K/mm3 (140-440) 04/21/16 14:53 Lymph % (Auto) 11.9 % (13.4-35.0) L 04/20/16 12:43 [place] % (Auto) 6.4 % (0.0-7.3) 04/20/16 12:43 Eos % (Auto) 1.1 % (0.0-4.3) 04/20/16 12:43 Baso % (Auto) 0.7 % (0.0-1.8) 04/20/16 12:43 Lymph # 0.9 K/mm3 (1.2-5.4) L 04/20/16 12:43 [place] # 0.5 K/mm3 (0.0-0.8) 04/20/16 12:43 Eos # 0.1 K/mm3 (0.0-0.4) 04/20/16 12:43 Baso # 0.1 K/mm3 (0.0-0.1) 04/20/16 12:43 Seg Neutrophils % 79.9 % (40.0-70.0) H 04/20/16 12:43 Seg Neutrophils # 6.2 K/mm3 (1.8-7.7) 04/20/16 12:43 Sodium 142 mmol/L (137-145) 04/24/16 05:36 Potassium 3.7 mmol/L (3.6-5.0) 04/24/16 05:36 Chloride 106.8 mmol/L (98-107) 04/24/16 05:36 Carbon Dioxide 24 mmol/L (22-30) 04/24/16 05:36 Anion Gap 19 mmol/L 04/23/16 05:06 BUN 55 mg/dL (7-17) H 04/24/16 05:36 Creatinine 3.2 mg/dL (0.7-1.2) H 04/24/16 05:36 Estimated GFR 18 ml/min 04/24/16 05:36 BUN/Creatinine Ratio 17.18 % 04/24/16 05:36 Glucose 122 mg/dL (65-100) H 04/24/16 05:36 POC Glucose 124 (70-105) H 04/23/16 22:09 Osmolality 366 Mosm/kg 04/20/16 18:56 Uric Acid 7.4 mg/dL (3.5-7.6) 04/20/16 18:56 Calcium 7.6 mg/dL (8.4-10.2) L 04/24/16 05:36 Total Creatine Kinase 280 units/L (30-135) H 04/21/16 08:42 CK-MB (CK-2) 7.7 ng/mL (0.0-4.0) H 04/21/16 08:42 CK-MB (CK-2) Rel Index 2.7 (0-4) 04/21/16 08:42 Troponin T 0.024 ng/mL (0.00-0.029) 04/21/16 08:42 Triglycerides 92 mg/dL (2-149) 04/20/16 12:43 Cholesterol 177 mg/dL (50-199) 04/20/16 12:43 LDL Cholesterol Direct 56 mg/dL (50-130) 04/20/16 12:43 HDL Cholesterol 103 mg/dL (40-59) H 04/20/16 12:43 Cholesterol/HDL Ratio 1.71 % 04/20/16 12:43 Urine Color Straw (Yellow) 04/21/16 14:24 Urine Turbidity Clear (Clear) 04/21/16 14:24 Urine pH 6.0 (5.0-7.0) 04/21/16 14:24 Ur Specific [place] 1.012 (1.003-1.030) 04/21/16 14:24 Urine Protein 100 mg/dl mg/dL (Negative) 04/21/16 14:24 Urine Glucose (UA) Neg mg/dL (Negative) 04/21/16 14:24 Urine Ketones Neg mg/dL (Negative) 04/21/16 14:24 Urine Blood Sm (Negative) 04/21/16 14:24 Urine Nitrite Neg (Negative) 04/21/16 14:24 Urine Bilirubin Neg (Negative) 04/21/16 14:24 Urine Urobilinogen < 2.0 mg/dL (<2.0) 04/21/16 14:24 Ur Leukocyte Esterase Tr (Negative) 04/21/16 14:24 Urine WBC (Auto) 8.0 /HPF (0.0-6.0) H 04/21/16 14:24 Urine RBC (Auto) 7.0 /HPF (0.0-6.0) 04/21/16 14:24 U Epithel Cells (Auto) < 1.0 /HPF (0-13.0) 04/21/16 14:24 Urine Mucus Few /HPF 04/21/16 14:24 Urine Creatinine 39.3 mg/dL (0.1-20.0) H 04/21/16 14:24 Urine Sodium 96 mEq/L 04/21/16 14:24
[2016-04-24] MEDS: ZOCOR PO SCH (21:35)
[2016-04-24] MEDS: PAMELOR PO SCH (21:35)
[2016-04-25] MEDS: NEURONTIN PO SCH (05:21)
[2016-04-25] MEDS: SYNTHROID PO SCH (05:21)
[2016-04-25] MEDS: HEPARIN SUB-Q SCH (05:22)
[2016-04-25 06:45] LABS: BUN/Creatinine Ratio 17.93; Calcium 7.5 mg/dL (8.4-10.2); Chloride 106.2 mmol/L (98-107); Potassium 3.6 mmol/L (3.6-5.0)
--- NOTE | 2016-04-25 08:07 | Discharge Summary ---
Providers - Providers Date of Admission: 04/20/16 14:25 Date of discharge: 04/25/16 Attending physician: SAMMY CALABRESE 04/20/16 15:17 Consult to Physician [CONS] Urgent Consulting Provider: DEBBI NEWBERRY Reason For Exam: acute on chronic renal insf Notified:: y 04/20/16 20:34 Consult to Wound/ET Nurse [CONS] Routine Reason For Exam: wound eval 04/22/16 10:35 Physical Therapy Evaluation and Treat [CONS] Routine Comment: Reason For Exam: difficulty walking, Parkinson's Primary care physician: [employer]EC[employer]IVE Hospitalization Condition: Good Disposition: DISCHARGED TO HOME OR SELFCARE - Discharge Diagnoses (1) Syncope and collapse Status: Acute (2) Acute renal failure superimposed on stage 4 chronic kidney disease Status: Acute (3) Hypothyroidism Status: Chronic Qualifiers: Hypothyroidism type: H (4) Type 2 diabetes mellitus Status: Chronic Qualifiers: Diabetes mellitus complication status: D Diabetes mellitus complication detail: D Diabetic retinopathy severity: D Proliferative retinopathy type: P Diabetes mellitus macular edema: D Diabetes mellitus [facility] insulin use : D Laterality: L Chronic kidney disease stage: C (5) Diabetes mellitus type 2 in obese Status: Chronic (6) HTN (hypertension) Status: Chronic Qualifiers: Hypertension type: essential hypertension Qualified Code(s): I10 - Essential (primary) hypertension (7) Parkinsonian syndrome Status: Chronic Qualifiers: Parkinsonism type: Parkinson's disease Secondary Parkinsonism type: S Qualified Code(s): G20 - Parkinson's disease (8) Dehydration Status: Acute Core Measure Documentation - Palliative Care Palliative Care/ Comfort Measures: Not Applicable - Core Measures Any of the following diagnoses?: none Exam - Constitutional Vitals: Temp Pulse Resp BP Pulse Ox 97.5 F L 82 22 139/82 98 04/25/16 05:00 04/25/16 05:00 04/25/16 05:00 04/25/16 05:00 04/25/16 05:00 Plan Activity: no restrictions Diet: low fat, low cholesterol, low salt, diabetic Additional Instructions: 1.Follow up with PCP in 1 week. 2.Follow up with Dr. Newberry in 1 week. 3.Follow up with Neurologist in 1 week Follow up with: PRIMARY CAREMD [Primary Care Provider] - 7 Days
[2016-04-25 09:26] VITALS: BP 174/92
[2016-04-25] MEDS: ACARBOSE PO SCH (10:25)
[2016-04-25] MEDS: REQUIP PO SCH (11:33)
[2016-04-25] MEDS: TRADJENTA PO SCH (11:33)
[2016-04-25] MEDS: PEPCID PO SCH (11:33)
[2016-04-25] MEDS: TOPAMAX PO SCH (11:33)
--- NOTE | 2016-04-25 13:19 | Progress Note ---
Assessment and Plan Impression: Acute kidney injury secondary to prerenal aoztemia on chronic kidney disease - SCr 2.6 in December 2015 Syncope Hypertension Anemia secondary to CKD Hypernatremia, mild Plan: Renal function has continued to improved w/ IVF Continue to hold ACEi/ARB/diuretics - avoid at d/c for now Avoid potential nephrotoxins Dose medications for renal function Subjective Date of service: 04/25/16 Objective - Vital Signs Vital signs: Vital Signs - 12hr 04/25/16 04/25/16 04/25/16 04:00 05:00 09:25 Temperature 97.5 F L 98.1 F Pulse Rate 82 Pulse Rate [ 84 Left Radial] Pulse Rate [ 82 Right Dorsalis Pedis] Respiratory 22 16 Rate Blood Pressure 139/82 174/92 [Left Arm] O2 Sat by Pulse 98 93 Oximetry - Lab 04/21/16 14:53 04/25/16 06:03 Most recent lab results Calcium 7.5 mg/dL (8.4-10.2) L 04/25/16 06:03 Urine Creatinine 39.3 mg/dL (0.1-20.0) H 04/21/16 14:24 Urine Sodium 96 mEq/L 04/21/16 14:24
--- NOTE | 2016-04-27 14:23 | Vascular Lab Report ---
CAROTID DUPLEX STUDY: RIGHT PSVEDV CCA [id number] CCA [id number] ICA PROX:[id number] ICA MID:[id number] ICA [id number] ECA: 120 VERT: 62 22 LEFT PSVEDV CCA PROX:[id number] CCA DIST:7118 ICA PROX:7926 ICA MID:8634 ICA DIST:7426 ECA: 69 VERT: 58 23 REASON FOR EXAM: Right-sided weakness/syncope. COMMENTS ON THE RIGHT: Doppler frequency analysis is consistent with 16 to 49 percent diameter reduction of the internal carotid artery. Minimal amount of plaque is seen. The common carotid artery is patent. The external carotid artery is patent. The vertebral artery has antegrade flow. COMMENTS ON THE LEFT: Doppler frequency analysis is consistent with 16 to 49 percent diameter reduction of the internal carotid artery. Minimal amount of plaque is seen. The common carotid artery is patent. The external carotid artery is patent. The vertebral artery has antegrade flow. IMPRESSION: Less than 50% diameter reduction in the internal carotid arteries bilaterally. Consider repeat carotid artery duplex in 12 months.
--- NOTE | 2016-05-01 13:49 | Query- Renal Failure ---
Dear Date:_05/01/16 Reinstatement Clerk/CDS:Pretty/Gil Chau____ Phone#:_[phone] Exercise your independent professional judgment when responding to query. Questions asked do not imply a particular answer is desired or expected. We greatly appreciate your clarification on this issue. Clinical Documentation States: 55 Y/O Female admitted on 04/20/16 with History of HTN, DM, CKD, CVA presenting with an episode of passing out. Blood glucose accu-chek was 43 in triage. Clinical Findings Show: 04/20 04/21 04/25 Creat: 4.0 3.5 2.9 Please clarify if you mean: Acute Renal Failure with or due to: [x] Tubular Necrosis [ ] Medullary Necrosis [ ] Vasomotor Nephropathy [ ] Shock Kidney [ ] Tubular Nephrosis [ ] Renal Tubular Stasis [ ] Cortical Necrosis [ ] Acute Renal Failure (unspecified) [ ] Lower Tubular Nephrosis [x ] Other:_Acute on CKD stage 4 due to ATN [ ] Not Applicable Present on Admission: [x ] Yes (Y) [ ] Clinically undeterminable (W) [ ] No (N) Please also document response in your Progress Notes and/or Discharge Summary and indicate if the condition was present on admission. MTDD
== END 2016-04-25 14:18 | disposition home or self-care (01) | DRG 637 ==
LOC: ED 11:12 → 4A 14:25
PROVIDERS: ADMIT Internal Medicine; ATTEND Internal Medicine
DX: E11.65 Type 2 diabetes mellitus with hyperglycemia (principal); N17.0 Acute kidney failure with tubular necrosis; E87.0 Hyperosmolality and hypernatremia; Z68.44 Body mass index [BMI] 60.0-69.9, adult; I13.2 Hypertensive heart and chronic kidney disease with heart failure and with stage 5 chronic kidney disease, or end stage renal disease; N17.9 Acute kidney failure, unspecified; N18.4 Chronic kidney disease, stage 4 (severe); E11.649 Type 2 diabetes mellitus with hypoglycemia without coma; B95.1 Streptococcus, group B, as the cause of diseases classified elsewhere; E11.621 Type 2 diabetes mellitus with foot ulcer; E66.01 Morbid (severe) obesity due to excess calories; E03.9 Hypothyroidism, unspecified; D63.1 Anemia in chronic kidney disease; K21.9 Gastro-esophageal reflux disease without esophagitis; J45.909 Unspecified asthma, uncomplicated; I50.9 Heart failure, unspecified; G89.29 Other chronic pain; E78.5 Hyperlipidemia, unspecified; G20 Parkinson's disease; L97.509 Non-pressure chronic ulcer of other part of unspecified foot with unspecified severity; Z88.0 Allergy status to penicillin; Z88.6 Allergy status to analgesic agent; Z99.2 Dependence on renal dialysis; Z86.73 Personal history of transient ischemic attack (TIA), and cerebral infarction without residual deficits; Z98.84 Bariatric surgery status; Z90.89 Acquired absence of other organs; Z88.1 Allergy status to other antibiotic agents; Z22.322 Carrier or suspected carrier of Methicillin resistant Staphylococcus aureus; E11.22 Type 2 diabetes mellitus with diabetic chronic kidney disease
CPT/HCPCS: 36415; 51702; 71010; 76770; 80048; 80061; 81001; 82550; 82553; 82570; 82962; 83930; 84300; 84484; 84550; 85025; 85027; 87076; 87116; 87186; 93005; 93010; 93306; 93880; G8978-GP; G8979-GP; G8980-GP; J0885; J1644; J7030

== ENCOUNTER 2016-04-30 07:59 | Outpatient (CLI) | payer MEDICARE ==
[2016-04-30] MEDS ORDERED: XYLOCAINE TOPICAL 4% TP ONE ×2 (08:33→13:08)
== END 2016-04-30 08:00 | disposition home or self-care (01) ==
LOC: WOUND 07:59
PROVIDERS: ATTEND Nurse Practitioner
DX: I87.312 Chronic venous hypertension (idiopathic) with ulcer of left lower extremity (principal); L97.321 Non-pressure chronic ulcer of left ankle limited to breakdown of skin; I89.0 Lymphedema, not elsewhere classified; E11.9 Type 2 diabetes mellitus without complications; J45.909 Unspecified asthma, uncomplicated; I11.0 Hypertensive heart disease with heart failure; I50.9 Heart failure, unspecified
CPT/HCPCS: 11042; 87075; 87076; 87116; 87186; G0463; 99205

== ENCOUNTER 2016-05-21 09:29 | Outpatient (CLI) | payer MEDICARE ==
[2016-05-21] MEDS ORDERED: XYLOCAINE TOPICAL 4% TP ONE ×2 (09:49→15:11)
[2016-05-21] MEDS ORDERED: SANTYL TP ONE ×2 (11:01→15:11)
== END 2016-05-21 09:30 | disposition home or self-care (01) ==
LOC: WOUND 09:29
PROVIDERS: ATTEND Nurse Practitioner
DX: I87.312 Chronic venous hypertension (idiopathic) with ulcer of left lower extremity (principal); L97.321 Non-pressure chronic ulcer of left ankle limited to breakdown of skin; E11.621 Type 2 diabetes mellitus with foot ulcer; L97.411 Non-pressure chronic ulcer of right heel and midfoot limited to breakdown of skin; I89.0 Lymphedema, not elsewhere classified; J45.909 Unspecified asthma, uncomplicated; I11.0 Hypertensive heart disease with heart failure; I50.9 Heart failure, unspecified

== ENCOUNTER 2016-05-28 09:42 | Outpatient (CLI) | payer MEDICARE ==
[2016-05-28] MEDS ORDERED: XYLOCAINE TOPICAL 4% TP ONE ×2 (10:36→13:01)
[2016-05-28] MEDS ORDERED: SANTYL TP ONE ×2 (11:44→13:01)
== END 2016-05-28 09:43 | disposition home or self-care (01) ==
LOC: WOUND 09:42
PROVIDERS: ATTEND Nurse Practitioner
DX: E11.621 Type 2 diabetes mellitus with foot ulcer (principal); I87.312 Chronic venous hypertension (idiopathic) with ulcer of left lower extremity; L97.821 Non-pressure chronic ulcer of other part of left lower leg limited to breakdown of skin; L89.152 Pressure ulcer of sacral region, stage 2; L97.411 Non-pressure chronic ulcer of right heel and midfoot limited to breakdown of skin; L97.321 Non-pressure chronic ulcer of left ankle limited to breakdown of skin; L97.811 Non-pressure chronic ulcer of other part of right lower leg limited to breakdown of skin; I87.2 Venous insufficiency (chronic) (peripheral); I89.0 Lymphedema, not elsewhere classified; L97.211 Non-pressure chronic ulcer of right calf limited to breakdown of skin; J45.909 Unspecified asthma, uncomplicated; I11.0 Hypertensive heart disease with heart failure; I50.9 Heart failure, unspecified
CPT/HCPCS: 11042; G0463; 99212

== ENCOUNTER 2016-06-04 09:35 | Outpatient (CLI) | payer MEDICARE ==
[2016-06-04] MEDS ORDERED: XYLOCAINE TOPICAL 4% TP ONE ×2 (09:51→16:00)
== END 2016-06-04 09:36 | disposition home or self-care (01) ==
LOC: WOUND 09:35
PROVIDERS: ATTEND Nurse Practitioner
DX: E11.621 Type 2 diabetes mellitus with foot ulcer (principal); L97.411 Non-pressure chronic ulcer of right heel and midfoot limited to breakdown of skin; E11.622 Type 2 diabetes mellitus with other skin ulcer; L97.321 Non-pressure chronic ulcer of left ankle limited to breakdown of skin; L97.811 Non-pressure chronic ulcer of other part of right lower leg limited to breakdown of skin; L89.153 Pressure ulcer of sacral region, stage 3; I87.312 Chronic venous hypertension (idiopathic) with ulcer of left lower extremity; I89.0 Lymphedema, not elsewhere classified; E66.01 Morbid (severe) obesity due to excess calories; J45.909 Unspecified asthma, uncomplicated; I11.0 Hypertensive heart disease with heart failure; I50.9 Heart failure, unspecified

== ENCOUNTER 2016-06-18 09:34 | Outpatient (CLI) | payer MEDICARE ==
[2016-06-18] MEDS ORDERED: XYLOCAINE TOPICAL 4% TP ONE ×2 (09:40→14:03)
[2016-06-18] MEDS ORDERED: SILVER NITRATE TP ONE ×2 (11:32→12:00)
== END 2016-06-18 09:35 | disposition home or self-care (01) ==
LOC: WOUND 09:34
PROVIDERS: ATTEND Nurse Practitioner
DX: E11.621 Type 2 diabetes mellitus with foot ulcer (principal); L97.411 Non-pressure chronic ulcer of right heel and midfoot limited to breakdown of skin; E11.622 Type 2 diabetes mellitus with other skin ulcer; L97.321 Non-pressure chronic ulcer of left ankle limited to breakdown of skin; I87.333 Chronic venous hypertension (idiopathic) with ulcer and inflammation of bilateral lower extremity; L97.821 Non-pressure chronic ulcer of other part of left lower leg limited to breakdown of skin; L97.811 Non-pressure chronic ulcer of other part of right lower leg limited to breakdown of skin; L89.153 Pressure ulcer of sacral region, stage 3; I89.0 Lymphedema, not elsewhere classified; I87.2 Venous insufficiency (chronic) (peripheral); I11.0 Hypertensive heart disease with heart failure; I50.9 Heart failure, unspecified; J45.909 Unspecified asthma, uncomplicated

== ENCOUNTER 2016-06-25 10:38 | Outpatient (CLI) | payer MEDICARE ==
[2016-06-25] MEDS ORDERED: XYLOCAINE TOPICAL 4% TP ONE ×2 (11:02→12:43)
[2016-06-25] MEDS ORDERED: XYLOCAINE TOPICAL 2% ONE (11:11)
[2016-06-25] MEDS ORDERED: XYLOCAINE TOPICAL 2% TP ONE (12:43)
== END 2016-06-25 10:39 | disposition home or self-care (01) ==
LOC: WOUND 10:38
PROVIDERS: ATTEND Nurse Practitioner
DX: E11.621 Type 2 diabetes mellitus with foot ulcer (principal); L97.411 Non-pressure chronic ulcer of right heel and midfoot limited to breakdown of skin; L89.153 Pressure ulcer of sacral region, stage 3; L97.321 Non-pressure chronic ulcer of left ankle limited to breakdown of skin; L97.821 Non-pressure chronic ulcer of other part of left lower leg limited to breakdown of skin; I87.2 Venous insufficiency (chronic) (peripheral); I87.333 Chronic venous hypertension (idiopathic) with ulcer and inflammation of bilateral lower extremity; I89.0 Lymphedema, not elsewhere classified; I11.0 Hypertensive heart disease with heart failure; I50.9 Heart failure, unspecified; J45.909 Unspecified asthma, uncomplicated
CPT/HCPCS: 11055; 11056; 87075; 87076; 87116; 87186

== ENCOUNTER 2016-07-02 10:17 | Outpatient (CLI) | payer MEDICARE ==
[2016-07-02] MEDS ORDERED: XYLOCAINE TOPICAL 4% TP ONE ×2 (10:59→12:52)
[2016-07-02] MEDS ORDERED: SANTYL TP ONE ×2 (11:41→12:53)
== END 2016-07-02 10:18 | disposition home or self-care (01) ==
LOC: WOUND 10:17
PROVIDERS: ATTEND Nurse Practitioner
DX: E11.621 Type 2 diabetes mellitus with foot ulcer (principal); L97.411 Non-pressure chronic ulcer of right heel and midfoot limited to breakdown of skin; E11.622 Type 2 diabetes mellitus with other skin ulcer; L97.321 Non-pressure chronic ulcer of left ankle limited to breakdown of skin; L89.153 Pressure ulcer of sacral region, stage 3; I89.0 Lymphedema, not elsewhere classified; J45.909 Unspecified asthma, uncomplicated; I11.0 Hypertensive heart disease with heart failure; I50.9 Heart failure, unspecified; I87.2 Venous insufficiency (chronic) (peripheral); E66.01 Morbid (severe) obesity due to excess calories

== ENCOUNTER 2016-07-06 10:53 | Outpatient (CLI) | payer MEDICARE ==
[2016-07-06] MEDS ORDERED: XYLOCAINE TOPICAL 4% TP ONE ×2 (11:15→15:55)
[2016-07-06] MEDS ORDERED: SANTYL TP ONE (12:09)
== END 2016-07-06 10:54 | disposition home or self-care (01) ==
LOC: WOUND 10:53
PROVIDERS: ATTEND Internal Medicine
DX: E11.621 Type 2 diabetes mellitus with foot ulcer (principal); L97.411 Non-pressure chronic ulcer of right heel and midfoot limited to breakdown of skin; E11.622 Type 2 diabetes mellitus with other skin ulcer; L97.321 Non-pressure chronic ulcer of left ankle limited to breakdown of skin; L97.821 Non-pressure chronic ulcer of other part of left lower leg limited to breakdown of skin; L89.153 Pressure ulcer of sacral region, stage 3; I87.333 Chronic venous hypertension (idiopathic) with ulcer and inflammation of bilateral lower extremity; I89.0 Lymphedema, not elsewhere classified; N17.8 Other acute kidney failure; K21.0 Gastro-esophageal reflux disease with esophagitis; J44.1 Chronic obstructive pulmonary disease with (acute) exacerbation; E66.01 Morbid (severe) obesity due to excess calories; E78.5 Hyperlipidemia, unspecified; E11.22 Type 2 diabetes mellitus with diabetic chronic kidney disease; I13.0 Hypertensive heart and chronic kidney disease with heart failure and stage 1 through stage 4 chronic kidney disease, or unspecified chronic kidney disease; N18.9 Chronic kidney disease, unspecified; I50.9 Heart failure, unspecified; F15.90 Other stimulant use, unspecified, uncomplicated; Z85.850 Personal history of malignant neoplasm of thyroid

== ENCOUNTER 2016-07-13 10:51 | Outpatient (CLI) | payer MEDICARE ==
[2016-07-13] MEDS ORDERED: XYLOCAINE TOPICAL 4% TP ONE ×2 (11:06→11:30)
[2016-07-13] MEDS ORDERED: SANTYL TP ONE (11:57)
[2016-07-14] MEDS ORDERED: SANTYL TP SCH (10:00)
== END 2016-07-13 10:52 | disposition home or self-care (01) ==
LOC: WOUND 10:51
PROVIDERS: ATTEND Internal Medicine
DX: I87.333 Chronic venous hypertension (idiopathic) with ulcer and inflammation of bilateral lower extremity (principal); E11.621 Type 2 diabetes mellitus with foot ulcer; L97.411 Non-pressure chronic ulcer of right heel and midfoot limited to breakdown of skin; E11.622 Type 2 diabetes mellitus with other skin ulcer; L97.321 Non-pressure chronic ulcer of left ankle limited to breakdown of skin; I89.0 Lymphedema, not elsewhere classified; K21.0 Gastro-esophageal reflux disease with esophagitis; J44.1 Chronic obstructive pulmonary disease with (acute) exacerbation; E66.01 Morbid (severe) obesity due to excess calories; E78.5 Hyperlipidemia, unspecified; E11.22 Type 2 diabetes mellitus with diabetic chronic kidney disease; I13.0 Hypertensive heart and chronic kidney disease with heart failure and stage 1 through stage 4 chronic kidney disease, or unspecified chronic kidney disease; N18.9 Chronic kidney disease, unspecified; I50.9 Heart failure, unspecified; Z68.44 Body mass index [BMI] 60.0-69.9, adult; Z85.850 Personal history of malignant neoplasm of thyroid

== ENCOUNTER 2016-07-20 13:26 | Outpatient (CLI) | payer MEDICARE ==
[~2016-07-20 13:26] MED LIST: SANTYL TP ONE
[2016-07-20] MEDS ORDERED: XYLOCAINE TOPICAL 4% TP ONE (13:36)
[2016-07-20] MEDS ORDERED: SANTYL TP ONE (14:44)
== END 2016-07-20 13:27 | disposition home or self-care (01) ==
LOC: WOUND 13:26
PROVIDERS: ATTEND Internal Medicine
DX: E11.621 Type 2 diabetes mellitus with foot ulcer (principal); I87.333 Chronic venous hypertension (idiopathic) with ulcer and inflammation of bilateral lower extremity; I89.0 Lymphedema, not elsewhere classified; K21.0 Gastro-esophageal reflux disease with esophagitis; J44.1 Chronic obstructive pulmonary disease with (acute) exacerbation; E66.01 Morbid (severe) obesity due to excess calories; N17.8 Other acute kidney failure; I12.9 Hypertensive chronic kidney disease with stage 1 through stage 4 chronic kidney disease, or unspecified chronic kidney disease; N18.9 Chronic kidney disease, unspecified; E11.22 Type 2 diabetes mellitus with diabetic chronic kidney disease; Z85.89 Personal history of malignant neoplasm of other organs and systems; Z85.850 Personal history of malignant neoplasm of thyroid

== ENCOUNTER 2016-07-24 02:39 | Inpatient (IN) | payer MEDICARE ==
--- NOTE | 2016-07-24 04:28 | Cat Scan Report ---
FINAL REPORT PROCEDURE: CT HEAD/BRAIN WO CON TECHNIQUE: Computerized tomography of the head was performed without contrast material. HISTORY: head injury, ? loc COMPARISON: No prior studies are available for comparison. FINDINGS: Skull and scalp: Normal. Paranasal sinuses: Normal. Ventricles and subarachnoid spaces: There is mild central and cortical atrophy. There is no hydrocephalus per. Cerebrum: No evidence of hemorrhage, acute infarction or mass. There is an old lacunar infarct defect in the left basal ganglia. Cerebellum and brainstem: No evidence of hemorrhage, acute infarction or mass. Vasculature: Normal. Comments: None. IMPRESSION: There is no acute intracranial abnormality. There is no skull fracture or hemorrhage.
[2016-07-24] MEDS ORDERED: D50W (25GM) IV ONE (04:35)
--- NOTE | 2016-07-24 05:14 | Cat Scan Report ---
FINAL REPORT PROCEDURE: CT CERVICAL SPINE WO CON TECHNIQUE: Computerized tomography of the cervical spine was performed from the skull base to T1 without contrast material. HISTORY: head injury, ? loc COMPARISON: No prior studies are available for comparison. FINDINGS: There is straightening of the cervical spine. There are no fractures or malalignments. There are multilevel degenerative disc changes. Facet joints are intact. There is no facet dislocation. The skull base and the foramen magnum are intact. Prevertebral soft tissues are normal in thickness. IMPRESSION: No significant abnormality.
[2016-07-24 05:53] LABS: Basophils % (Auto) 1.1 % (0.0-1.8); Eosinophils % (Auto) 1.6 % (0.0-4.3); Hematocrit 31.6 % (30.3-42.9); Hemoglobin 9.6 gm/dl (10.1-14.3); Mean Corpuscular HGB Conc 31 % (30-34); Mean Corpuscular Hemoglobin 29 pg (28-32); Mean Corpuscular Volume 95 fl (79-97); Red Blood Count 3.32 M/mm3 (3.65-5.03); White Blood Count 6.9 K/mm3 (4.5-11.0)
[2016-07-24 06:09] LABS: Alanine Aminotransferase 15 units/L (7-56); Albumin 2.2 g/dL (3.9-5); Albumin/Globulin Ratio 0.6 %; Alkaline Phosphatase 55 units/L (35-129); Anion Gap 20 mmol/L; BUN/Creatinine Ratio 12.94; Bilirubin,Total < 0.20 mg/dL (0.1-1.2); Blood Urea Nitrogen 44 mg/dL (7-17); Calcium 7.5 mg/dL (8.4-10.2); Carbon Dioxide 17 mmol/L (22-30); Chloride 108.5 mmol/L (98-107); Glucose 59 mg/dL (65-100); Potassium 4.6 mmol/L (3.6-5.0); Sodium 141 mmol/L (137-145)
[2016-07-24 06:15] LABS: Platelet Count 219 K/mm3 (140-440)
--- NOTE | 2016-07-24 07:09 | Emergency Department Report ---
- General Chief complaint: Hypoglycemia Stated complaint: LEG PAIN Time Seen by Provider: 07/24/16 06:07 Source: patient, EMS Mode of arrival: Stretcher Limitations: Physical Limitation - History of Present Illness Initial comments: Patient is a 55-year-old female with history of morbid obesity, hypertension, hyperlipidemia, diabetes, peripheral vascular disease, leg ulcerations, anemia, who presents to the ER complaining of weakness. Patient reports she has been feeling weak for the past few days and has been unable to ambulate as well as her normal self. Patient reports she used to be a diabetic on medications but has not taken any medications for 1 year. Patient was found to be hypoglycemic in the 40s. Patient does report multiple ulcerations to the left ankle and heel and to the right heel. Patient reports she does get wound care, but has noticed a foul odor from the left foot ulcerations. Otherwise no fevers, chills , headaches, dizziness, nausea, vomiting, URI symptoms, chest pain, shortness of breath, abdominal pain, trauma, or sick contacts. MD Complaint: generalized weakness Severity scale (0 -10): 10 - Related Data Home Medications Medication Instructions Recorded Confirmed Last Taken Ranitidine HCl [Zantac 75 MG TAB] 150 mg PO QDAY 11/03/14 04/20/16 03/06/15 Topiramate [Topamax] 100 mg PO BID 11/09/14 04/20/16 03/06/15 Levothyroxine [Synthroid] 112 mcg PO DAILY@0600 03/07/15 04/20/16 03/06/15 Simvastatin [Zocor TAB] 40 mg PO QHS 03/07/15 04/20/16 03/06/15 ALBUTEROL Inhaler [ProAir HFA 2 puff IH QID PRN 12/10/15 04/20/16 Unknown Inhaler] Acarbose [Precose] 25 mg PO TID 12/10/15 04/20/16 Unknown Gabapentin [Neurontin] 300 mg PO Q8HR 12/10/15 04/20/16 Unknown Nortriptyline [Pamelor] 10 mg PO QHS 12/10/15 04/20/16 Unknown Ropinirole HCl [Requip] 0.5 mg PO TID 12/10/15 04/20/16 Unknown oxyCODONE /ACETAMINOPHEN [Percocet 1 tab PO Q4HR 12/10/15 04/20/16 Unknown 5/325 mg] Previous Rx's Medication Instructions Recorded Last Taken Type Sitagliptin Phosphate [Januvia] 50 mg PO DAILY #30 tablet 12/11/15 Unknown Rx Ciprofloxacin HCl [Ciprofloxacin 250 mg PO BID #10 tablet 04/25/16 Unknown Rx TAB] Allergies Allergy/AdvReac Type Severity Reaction Status Date / Time clindamycin Allergy Severe Itching Verified 11/05/14 13:20 ibuprofen Allergy Unknown Verified 11/03/14 08:12 Penicillins Allergy Swelling Verified 04/20/16 11:58 ED Review of Systems ROS: Stated complaint: LEG PAIN Other details as noted in HPI Comment: All other systems reviewed and negative ED Past Medical Hx - Past Medical History Hx Hypertension: Yes Hx CVA: No (TIA) Hx Congestive Heart Failure: Yes Hx Diabetes: Yes (1985, not on meds) Hx Deep Vein Thrombosis: Yes (LUE) Hx GERD: Yes Hx Arthritis: Yes Hx Headaches / Migraines: Yes Hx Seizures: No Hx Asthma: No Hx COPD: Yes Additional medical history: TIA, Parkinsons. anemia. LYMPHEDEMA - Surgical History Hx Pacemaker: No Hx Internal Defibrillator: No Additional Surgical History: x 3. carpel tunnel x 2. eye surgery. gastric bypass. thyroidectomy - Social History Smoking Status: Never Smoker Substance Use Type: None - Medications Home Medications: Home Medications Medication Instructions Recorded Confirmed Last Taken Type Ranitidine HCl [Zantac 75 MG TAB] 150 mg PO QDAY 11/03/14 04/20/16 03/06/15 History Topiramate [Topamax] 100 mg PO BID 11/09/14 04/20/16 03/06/15 History Levothyroxine [Synthroid] 112 mcg PO DAILY@0600 03/07/15 04/20/16 03/06/15 History Simvastatin [Zocor TAB] 40 mg PO QHS 03/07/15 04/20/16 03/06/15 History ALBUTEROL Inhaler [ProAir HFA 2 puff IH QID PRN 12/10/15 04/20/16 Unknown History Inhaler] Acarbose [Precose] 25 mg PO TID 12/10/15 04/20/16 Unknown History Gabapentin [Neurontin] 300 mg PO Q8HR 12/10/15 04/20/16 Unknown History Nortriptyline [Pamelor] 10 mg PO QHS 12/10/15 04/20/16 Unknown History Ropinirole HCl [Requip] 0.5 mg PO TID 12/10/15 04/20/16 Unknown History oxyCODONE /ACETAMINOPHEN [Percocet 1 tab PO Q4HR 12/10/15 04/20/16 Unknown History 5/325 mg] Sitagliptin Phosphate [Januvia] 50 mg PO DAILY #30 tablet 12/11/15 04/20/16 Unknown Rx Ciprofloxacin HCl [Ciprofloxacin 250 mg PO BID #10 tablet 04/25/16 Unknown Rx TAB] ED Physical Exam - General Limitations: Physical Limitation, Other (morbidly obese) General appearance: alert, in no apparent distress - Head Head exam: Present: atraumatic, normocephalic - Eye Eye exam: Present: normal appearance - ENT ENT exam: Present: mucous membranes moist - Neck Neck exam: Present: normal inspection - Respiratory Respiratory exam: Present: normal lung sounds bilaterally. Absent: respiratory distress - Cardiovascular Cardiovascular Exam: Present: regular rate, normal rhythm. Absent: systolic murmur, diastolic murmur, rubs, gallop - GI/Abdominal GI/Abdominal exam: Present: soft, normal bowel sounds. Absent: tenderness, guarding, rebound - Extremities Exam Extremities exam: Present: other (R heel stage 2 ulcer, L heel, and L ankle ulcerations with foul odor). Absent: calf tenderness - Back Exam Back exam: Present: normal inspection - Neurological Exam Neurological exam: Present: alert, oriented X3, CN II-XII intact. Absent: motor sensory deficit - Psychiatric Psychiatric exam: Present: normal affect, normal mood - Skin Skin exam: Present: warm, dry, intact, normal color. Absent: rash ED Course Vital Signs 07/24/16 07/24/16 07/24/16 02:46 03:00 03:15 Temperature 97.8 F Pulse Rate 88 87 Respiratory 10 L 12 10 L Rate Blood Pressure 136/78 Blood Pressure 123/88 [Right] O2 Sat by Pulse 95 95 94 Oximetry 07/24/16 07/24/16 07/24/16 03:30 04:29 06:09 Temperature Pulse Rate 85 99 H 82 Respiratory 10 L 13 10 L Rate Blood Pressure Blood Pressure 122/86 161/96 156/107 [Right] O2 Sat by Pulse 93 99 100 Oximetry 07/24/16 07/24/16 06:38 06:39 Temperature Pulse Rate 89 89 Respiratory 13 12 Rate Blood Pressure 161/99 Blood Pressure [Right] O2 Sat by Pulse 98 99 Oximetry ED Medical Decision Making - Lab Data Result diagrams: 07/24/16 03:54 07/24/16 03:54 - Radiology Data Radiology results: report reviewed CXR: WNL L ankle xray: pending - Medical Decision Making Started patient on D10W infusion for persistent hypoglycemia at 125cc/hr Pt admitted to med surg Critical care attestation.: If time is entered above; I have spent that time in minutes in the direct care of this critically ill patient, excluding procedure time. ED Disposition Clinical Impression: Hypoglycemia, Weakness, Leg ulcer, left Disposition: OP ADMITTED IP TO THIS HOSP Is pt being admited?: Yes Condition: Stable
[2016-07-24 07:12] LABS: Bilirubin,Urine NEG (Negative); Blood,Urine NEG (Negative); Granular Casts,Urine 7 /LPF; Ketones,Urine NEG (Negative); Leukocyte Esterase,Urine NEG (Negative); Mucus,Urine FEW /HPF; Nitrite,Urine NEG (Negative); Urobilinogen,Urine < 2.0 mg/dL (<2.0)
--- NOTE | 2016-07-24 07:20 | XRay Report ---
Single view chest: Compared to 04/20/16. History: Shortness of breath. Findings: Borderline cardiomegaly. Trachea is midline. No consolidation, pneumothorax or pleural effusion. Impression: No acute cardiopulmonary findings.
[2016-07-24] MEDS ORDERED: CALCIUM GLUCONATE 2,000 MG in NACL 0.9% 100 ML IV ONE (08:00)
[2016-07-24] MEDS ORDERED: VANCOMYCIN/NS 1 GM/250 ML 1 GM/250 ML BAG IV SCH (08:00)
--- NOTE | 2016-07-24 08:41 | XRay Report ---
Left ankle: Swelling, infection. AP and lateral views demonstrates a large ulcer adjacent to the lateral malleolus. There is generalized swelling of the soft tissues which are intrinsically thick. The visualized bones and joints appear unremarkable for any evidence of infection. Impressions: Soft tissue ulcer. No osteomyelitis identified.
[2016-07-24] MEDS: D10W 1,000 ML IV SCH (08:45)
--- NOTE | 2016-07-24 08:47 | Admit Criteria Form ---
Admission Criteria Documentation: GENERAL ADMISSION CRITERIA (Place 'X' for any and all applicable criteria): Admission is indicated for ANY ONE of the following: [ ]I. Hemodynamic instability as indicated by ANY ONE of the following(1)(2) (3)(4)(5): [ ]a) Vital sign abnormality not readily corrected by appropriate treatment within 12 to 24 hours indicated by ANY ONE of the following: [ ]i) Hypotension [ ]ii) Symptomatic Tachycardia unresponsive to treatment (eg , analgesia, fluids, sedation as indicated) [ ]iii) Orthostatic vital sign changes unresponsive to treatment (eg, fluids) [ ]b) Vital sign abnormality that is severe indicated by ANY ONE of the following: [ ]i) Inadequate perfusion indicated by ANY ONE of the following: [ ]1) Lactic acidosis (greater than 2 mmol/L) [ ]2) New abnormal capillary refill (greater than 3 seconds) [ ]3) Other metabolic acidosis (arterial pH less than 7.35) not otherwise explained [ ]4) Reduced urine output [ ]5) Altered mental status [ ]6) Myocardial Ischemia [ ]v) Mean arterial pressure[A] less than 60 mm Hg [ ]vi) Mean arterial pressure[A] less than 70 mm Hg after 30 minutes of appropriate treatment (eg, fluid resuscitation) [ ]vii) IV inotropic or vasopressor medication required to maintain adequate blood pressure or perfusion [ ]viii) Sustained heart rate greater than 120 beats per minute in adult or child 6 years or older[B]] [ ]II. Hypertension requiring inpatient treatment as indicated by ANY ONE of the following(6)(7)(8): [ ]a) SBP greater than 220 mm Hg or DBP greater than 120 mm Hg despite treatment [ ]b) SBP greater than 140 mm Hg or DBP greater than 100 mm Hg with evidence of acute end organ damage as indicated by ANY ONE of the following: [ ]i) Encephalopathy [ ]ii) Acute renal failure as indicated by new onset of ANY ONE of the following(9)(10)(11)(12)(13): [ ]1) A 3-fold rise in serum creatinine from baseline [ ]2) Serum creatinine greater than 4 mg/dL ( 354 micromoles/L) with acute rise greater than 0.5 mg/dL (44.2 micromoles/L) [ ]3) Reduction of more than 75% in estimated glomerular filtration rate from baseline [ ]4) Estimated glomerular filtration rate less than 35 mL/min/1.73m2 (0.59 mL/sec/1.73m2) in child up to 18 years of age [ ]5) Cessation of urine output indicated by ALL of the following: [ ]A. Adequate volume status [ ]B. Inadequate urine output as indicated by ANY ONE of the following: [ ]a. Urine output less than 0.3 mL/kg/hr for 24 hours [ ]b. Anuria (urine output less than 0.1 mL/kg/hr) for 12 hours [ ]iii) Aortic dissection [ ]iv) Myocardial ischemia [ ]v) Left ventricular heart failure [ ]vi) Retinal hemorrhage [ ]vii) Other significant finding [ ]c) Hypertension in child requiring inpatient treatment as indicated by ALL of the following(14)(15)(16): [ ]i) Outpatient treatment not effective, not available, or not appropriate [ ]ii) SBP or DBP greater than 95th percentile for age [ ]iii) Evidence of acute end organ damage as indicated by ANY ONE of the following: [ ]1) Altered mental status [ ]2) Acute renal failure as indicated by new onset of ANY ONE of the following(9)(10)(11)(12)(13): [ ]A. A 3-fold rise in serum creatinine from baseline [ ]B. Serum creatinine greater than 4 mg/dL (354 micromoles/L) with acute rise greater than 0.5 mg/dL (44.2 micromoles/L) [ ]C. Reduction of more than 75% in estimated glomerular filtration rate from baseline [ ]D. Estimated glomerular filtration rate less than 35 mL/min/1.73m2 (0.59 mL/sec/1.73m2)in child up to 18 years of age [ ]E. Cessation of urine output indicated by ALL of the following: [ ]a. Adequate volume status [ ]b. Inadequate urine output as indicated by ANY ONE of the following: [ ]1) Urine output less than 0.3 mL/kg/hr for 24 hours [ ]2) Anuria (urine output less than 0.1 mL/kg/hr) for 12 hours [ ]3) Severe headache [ ]4) Visual disturbance [ ]5) Retinal hemorrhage [ ]6) Other significant finding [ ]III. Acute cardiac or peripheral ischemia as indicated by ANY ONE of the following: [ ]a) Acute coronary syndrome(17)(18) [ ]b) Acute peripheral ischemia (eg, pulseless, cool, mottled, or cyanotic extremity)(19) [ ]IV. Cardiac arrhythmias or findings of immediate concern indicated by ANY ONE of the following(20)(21): [ ]a) Heart rhythms that are inherently dangerous or unstable indicated by ANY ONE of the following(22)(23)(24): [ ]i) Resuscitated ventricular fibrillation or cardiac arrest [ ]ii) Ventricular escape rhythm [ ]iii) Sustained ventricular tachycardia (30 seconds or more of ventricular rhythm at greater than 100 beats per minute) [ ]iv) Nonsustained ventricular tachycardia and ANY ONE of the following: [ ]1) Suspected cardiac ischemia as cause or consequence of ventricular tachycardia [ ]2) In setting of acute myocarditis [ ]b) Unstable cardiac conduction defects indicated by ANY ONE of the following(24)(25)(26): [ ]i) Type II second-degree atrioventricular block [ ]ii) Third-degree atrioventricular block [ ]iii) New-onset left bundle branch block with suspected myocardial ischemia [ ]c) Any heart rhythm and ANY ONE of the following(22)(23)(27)(28)( 29): [ ] i) Continuous long-term ECG monitoring needed (eg, initiation of drug requiring monitoring for more than 24 hours) [ ] ii) Patient has automatic implanted cardioverter defibrillator that is repeatedly firing, malfunctioning, or in need of immediate adjustment of settings beyond the scope of ambulatory or observation care. [ ]d) Heart rhythms of concern due to ANY ONE of the following: [ ]i) Hypotension [ ]ii) Respiratory distress [ ]iii) Association with other significant symptoms (eg, bradycardia with syncope or ongoing dizziness, supraventricular tachycardia with chest pain) (27)(28) (30) [ ] V. Severe heart failure as indicated by ANY ONE of the following ( 31)(32): [ ]a) Respiratory distress [ ]b) Hypotension [ ]c) Anasarca (refractory to outpatient therapy) [ ]d) Cardiac arrhythmias of immediate concern [ ]e) Myocardial ischemia [ ]. Respiratory abnormalities, including ANY ONE of the following(33)(34) (35)(36): [ ]a) Respiratory rate greater than 30 breaths per minute unresponsive to treatment [A] [ ]b) New saturation of arterial oxygen less than 90% [ ]c) New partial pressure of carbon dioxide greater than 44 mm Hg ( 5.9 kPa) [ ]d) Supplemental oxygen or respiratory treatments needed that are new or not performable at other levels of care [ ]e) New-onset cyanosis [ ]f) Inability to protect airway [ ]g) Chronic lung disease with severe deterioration (not responsive to emergency and observation care treatment as appropriate) as indicated by ANY ONE of the following(34)(36 ): [ ]i) SaO2 5% below baseline in patient with chronic hypoxemia [ ]ii) New requirement for supplemental oxygen to keep SaO2 at baseline or acceptable level [ ]iii) Required supplemental oxygen performable only in acute inpatient setting [ ]iv) Severe airflow or ventilation abnormalities [ ]v) Previously mobile patient unable to walk between rooms [ ]vi Inability to eat or sleep due to dyspnea [ ]vii) Rapid rate of exacerbation onset [ ]viii) Altered mental status ]VII. Severe airflow or ventilation abnormalities (not responsive to emergency and observation care treatment as appropriate) as indicated by ANY ONE of the following(33)(34)(35)(37): [ ]a) PCO2 greater than 42 mm Hg (5.6 kPa) and pH less than 7.35 (new ) [ ]b) Documented PCO2 increased more than 5 mm Hg (0.7 kPa) from disease baseline [ ]c) Airflow measurements [B] less than 60% of previous best or predicted (eg, peak expiratory flow rate less than 300 L/minute) despite intensive emergent treatment [C] [ ]d) Required respiratory treatments that are performable only in acute inpatient setting [ ]VIII. Impending or actual respiratory arrest ( Also use Respiratory Failure GRG for severe respiratory disease and long-term mechanical ventilation patients) [ ]IX. Neurologic abnormalities, including ANY ONE of the following: [ ]a) New findings that suggest ANY ONE of the following: [ ]i) SKEWER UP infection(38) [ ]ii) Cerebral bleeding, ischemia, or vasospasm(39)(40) [ ]iii) Increased intracranial pressure, hydrocephalus, or cerebral edema(41)(42)(43) [ ]iv) Spinal cord injury(44) [ ]b) Uncontrolled seizures(45) [ ]c) New-onset coma (eg, [place] coma scale score less than 9) or unexplained abnormal mental status (eg, [place] coma scale score less than 14) [D](41)(46)(47) [ ]X. New-onset severe neurologic findings requiring inpatient care; examples include(42)(48)(49): [ ]a) Papilledema [ ]b) Cerebral edema [ ]c) Mass effect on CT scan [ ]XI. Suspected acute intra-abdominal process with peritoneal signs, abdominal mass, or similar findings (50)(51)(52) [X]XII. Severe physiologic disorder remaining after emergency or observation level care (as appropriate) as indicated by ANY ONE of the following (53): [ ]a) Significant dehydration [ ]b) Diabetic ketoacidosis [ ]c) Hyperglycemic hyperosmolar state (eg, osmolality greater than 320 mOsm/kg (mmol/kg) [X ]d) Hypoglycemia [ ]e) Other (new) acid-base disorder with pH less than 7.35 or greater than 7.5(54) [ ]f) Thyroid storm (55) [ ]g) Myxedema coma (55) [ ]XIII. Abdominal abnormalities with ANY ONE of the following(56)(57): [ ]a) Absent bowel sounds with complete ileus [ ]b) Signs of intestinal obstruction or peritonitis [E] [ ]c) Nausea and vomiting that cannot be controlled with outpatient or observation care [ ]XIV. Acute renal failure as indicated by new onset of ANY ONE of the following(9)(10)(11)(12)(13): [ ]a) A 3-fold rise in serum creatinine from baseline [ ]b) Serum creatinine greater than 4 mg/dL (354 micromoles/L) with acute rise greater than 0.5 mg/dL (44.2 micromoles/L) [ ]c) Reduction of more than 75% in estimated glomerular filtration rate from baseline [ ]d) Estimated glomerular filtration rate less than 35 mL/min/ 1.73m2 (0.59 mL/sec/1.73m2) in child up to 18 years of age [ ]e) Cessation of urine output indicated by ALL of the following: [ ]i) Adequate volume status [ ]ii) Inadequate urine output as indicated by ANY ONE of the following: [ ]1) Urine output less than 0.3 mL/kg/hr for 24 hours [ ]2) Anuria (urine output less than 0.1 mL/kg/hr) for 12 hours [ ]XV. Significant uremic complications as indicated by ANY ONE of the following(58)(59)(60): [ ]a) Outpatient therapy is ineffective or not feasible for ANY ONE of the following: [ ]i) Severe heart failure [ ]ii) Severehypertension [ ]iii) Pleural effusion [ ]iv) Pericarditis or pericardial effusion [ ]b) Cardiac arrhythmias of immediate concern [ ]c) Intractable nausea or vomiting [ ]d) Recurrent seizures [ ]e) Encephalopathy [ ]f) Bleeding abnormalities (eg, platelet dysfunction) with active (eg, gastrointestinal) bleeding [ ]g) Dialysis indicated before long-term access or ambulatory arrangements can be made [ ]h) Significant metabolic or electrolyte abnormalities (eg, severe acidosis or hyperkalemia) [ ]XVI. High fever or other high-risk infection situation as indicated by ANY ONE of the following(61)(62)(63)(64): [ ]a) Outpatient and observation care antimicrobial treatment unavailable, not effective, or not appropriate [ ]b) Documented bacteremia [ ]c) Temperature greater than 40.5 degrees C (104.9 degrees F) ( oral) [ ]d) Temperature greater than 39.5 degrees C (103.1 degrees F) ( oral) or less than 36 degrees C (96.8 degrees F) (rectal) that does not respond to e treatment and observation care [ ] XVII. Temperature less than 95 degrees F (35 degrees C)(rectal)(65) [ ] XVIII. Severe nutritional abnormalities as indicated by ALL of the following (66)(67): [ ]a) Inability to tolerate or establish sufficient oral or other enteral nutrition in outpatient setting [ ]b) Parenteral nutrition regimen need that must be implemented on inpatient basis [ ] XIX. Severe electrolyte abnormalities indicated by ALL of the following(68) (69)(70): [ ]a) Electrolytes and associated findings are not as expected for patient baseline or acceptable treatment effects. [ ]b) Severe abnormalities indicated by ANY ONE of the following: [ ]i) Sodium less than 130 mEq/L (mmol/L) (new) [ ]ii)Sodium less than 135 mEq/L (mmol/L) with ANY ONE of the following: [ ]1) Uncorrectable (to near normal or chronic baseline) after trial of outpatient and emergency treatment [ ]2) Altered mental status [ ]3) Seizures [ ]4) Severe medical etiology requiring inpatient management (eg, heart failure, hypovolemia) [ ]iii) Sodium greater than 155 mEq/L (mmol/L) [ ]iv) Sodium greater than 150 mEq/L (mmol/L) with ANY ONE of the following: [ ]1) Uncorrectable (to near normal or chronic baseline) with outpatient and emergency treatment [ ]2) Altered mental status [ ]3) Seizures [ ]4) Severe medical etiology (eg, hypovolemia, diabetes insipidus) [ ]v) Potassium less than 2.5 mEq/L (mmol/L) despite outpatient and emergency treatment [ ]vi) Potassium less than 3 mEq/L (mmol/L) with ANY ONE of the following: [ ]1) Weakness [ ]2) Cardiac abnormality (eg, arrhythmia, conduction disturbance) [ ]3) Cardiac ischemia [ ]4) Ileus [ ]5) Ongoing medical cause requiring inpatient management (eg, acute renal wasting or SIADH) [ ]6) Other severe symptoms [ ]vii) Potassium greater than 6.5 mEq/L (mmol/L) [ ]viii) Potassium greater than 5 mEq/L (mmol/L) with ANY ONE of the following: [ ]1) Uncorrectable (to near normal or chronic baseline) with outpatient and emergency treatment [ ]2) Severe ECG findings [F] [ ]3) Acute worsening of renal failure (creatinine greater than 2.5 mg/dL (221 micromoles/L) or significant elevation for age and size) [ ]4) Severe weakness [ ]5) Severe medical etiology (eg, hemolysis, infection, drug overdose) [ ]ix) Calcium less than 7 mg/dL (1.75 mmol/L) despite outpatient and emergency treatment (72) [ ]x) Calcium less than 8 mg/dL (2 mmol/L) with significant symptoms or findings; examples include(72): [ ]1) Altered mental status [ ]2) Muscle spasms [ ]3) Seizures [ ]4) Breathing difficulty [ ]5) Cardiac abnormality (eg, arrhythmia or conduction disturbance) [ ]xi) Calcium greater than 14 mg/dL (3.5 mmol/L)(72) [ ]xii) Calcium greater than 12 mg/dL (3 mmol/L) with ANY ONE of the following(72): [ ]1) Uncorrectable (to near normal or chronic baseline) with outpatient and emergency treatment [ ]2) Significant dehydration or hypovolemia as indicated by ALL of the following(70)(73)(74): [ ]A. Not resolved with initial treatments [ ]B. Clinically significant dehydration as indicated by ANY ONE of the following: [ ]a. Vomiting refractory to outpatient treatment (ie, precluding oral rehydration) [ ]b. Inability to drink [ ]c. Hypernatremia or other electrolyte abnormality unable to be corrected with outpatient and emergency treatment [ ]d. Failure to remain hydrated with outpatient therapy [ ]e. Reduced urine output [ ]f. Hypotension [ ]g. Serious cause for dehydration requiring acute hospitalization (eg, bowel obstruction, increased intracranial pressure, infectious cause) [ ]h. Child with ANY ONE of the following(75): [ ]1) Severe abdominal tenderness [ ]2) Adequate care not available at home [ ]3) Severe dehydration ( greater than 9% loss of body weight) [ ]4) Significant symptoms or findings; examples include: [ ]A. Altered mental status [ ]B. Cardiac abnormality (eg, arrhythmia, conduction disturbance) [ ]C. Malignant etiology requiring inpatient treatment [ ]xiii) Phosphorus less than 1 mg/dL (0.32 mmol/L) [ ]xiv) Phosphorus less than 1.5 mg/dL (0.48 mmol/L) with ANY ONE of the following: [ ]1) Patient unresponsive to outpatient and emergency treatment [ ]2) Significant symptoms or findings; examples include: [ ]A. Weakness [ ]B. Altered mental status [ ]C. Breathing difficulty [ ]D. Seizures [ ]E. Rhabdomyolysis [ ]xv) Phosphorus greater than 10 mg/dL (3.2 mmol/L) [ ]xvi) Phosphorus greater than 4.5 mg/dL (1.45 mmol/L) (new) with ANY ONE of the following: [ ]1) Severe medical etiology (eg, crush injury, acute renal failure) [ ]2) Associated hypocalcemia with significant findings; examples include: [ ]A. Neurologic symptoms [ ]B. Altered mental status [ ]C. Muscle spasms [ ]D. Seizures [ ]E. Breathing difficulty [ ]F. Cardiac abnormality (eg, arrhythmia, conduction disturbance) [ ]xvii) Magnesium less than 1 mg/dL (0.41 mmol/L) [ ]xviii) Magnesium less than 1.5 mg/dL (0.62 mmol/L) with ANY ONE of the following: [ ]1) Patient unresponsive to outpatient and emergency treatment [ ]2) Associated hypocalcemia with significant findings; examples include: [ ]A. Altered mental status [ ]B. Muscle spasms [ ]C. Seizures [ ]D. Breathing difficulty [ ]E. Cardiac abnormality (eg, arrhythmia , conduction disturbance) [ ]3) Associated hypokalemia (potassium less than 3 mEq/L (mmol/L)) with risk of arrhythmia [ ]xix) Magnesium greater than 4 mEq/L (2 mmol/L) [ ]xx) Magnesium greater than 2.5 mEq/L (1.25 mmol/L) with significant symptoms or findings; examples include: [ ]1) Weakness [ ]2) Altered mental status [ ]3) Cardiac abnormality (eg, arrhythmia, conduction disturbance) [ ]4) Breathing difficulty [ ]5) Severe medical etiology (eg, renal failure, hypovolemia) [ ]xxi) Uric acid greater than 20 mg/dL (1190 micromoles/L)(76) [ ]xxii) Uric acid greater than 8 mg/dL (476 micromoles/L) with significant symptoms or findings of tumor lysis syndrome; examples include(76): [ ]1) Creatinine greater than 1.5 times upper limit of normal [ ]2) Cardiac abnormality (eg, arrhythmia, conduction disturbance) [ ]3) Seizure [ ]XX. Acute blood loss causing significant abnormality as indicated by ANY ONE of the following(77)(78): [ ]a) Hemoglobin less than 10 g/dL (100 g/L) (not baseline) [ ]b) Hematocrit less than 30% (0.30) (not baseline) [ ]c) Repeat hematocrit decreased more than 2% (0.02) [ ]d) Uncontrolled bleeding [ ]XXI. Severe anemia indicated by ANY ONE of the following(78)(79): [ ]a) Altered mental status [ ]b) Chest pain [ ]c) Exertional dyspnea [ ]d) Syncope [ ]e) Other findings suggesting inadequate perfusion [ ]f) Treatment with transfusion or volume replacement is ineffective at resolving ANY ONE of the following [G]: [ ]i) Tachycardia for age [ ]ii) Orthostatic vital sign changes as indicated by ANY ONE of the following(80): [ ]1) Fall in SBP of 20 mm Hg or more 1 to 3 minutes after patient sits or stands from recumbent position [ ]2) Fall in DBP of 10 mm Hg or more 1 to 3 minutes after patient sits or stands from recumbent position [ ]XXII. High-risk low platelet count as indicated by ANY ONE of the following( 81)(82): [ ]a) Severe or life-threatening bleeding (eg, intracranial, major gastrointestinal, or extensive mucosal bleeding), with any reduced platelet count [ ]b) Platelet count less than 20,000/mm3 (20 x109/L) with any active bleeding [ ]c) Platelet count less than 10,000/mm3 (10 x109/L) with minor purpura or petechiae [ ]d) Platelet count less than 5000/mm3 (5 x109/L) [ ]e) Low platelet count with hemolytic anemia [ ]XXIII. Disseminated intravascular coagulation(77)(83) [ ]XXIV. Severe adverse drug or systemic toxin reaction requiring inpatient treatment; examples include(84)(85): [ ]a) Serotonin syndrome(86) [ ]b) Neuroleptic malignant syndrome(86) [ ]c) Cholinergic syndrome with severe symptoms (eg, bronchorrhea, weakness, mental status changes, seizures) [ ]d) Sympathetic syndrome with severe symptoms (eg, seizures, mental status changes, cardiac dysrhythmias) [ ]e) Anticholinergic syndrome [ ]XXV. Severe pain requiring acute inpatient management as indicated by ALL of the following (87)(88)(89): [ ]a) Continuous or frequent (eg, every 2 to 4 hours) parenteral analgesics required [H] [ ]b) Rapid improvement expected from treatment or acute intervention (eg, surgery, anesthesia procedure) [ ]XXVI.Severe behavioral health issues judged unmanageable at a lower level of care (eg, residential) in a patient who is ANY ONE of the following(91) [ ]a) Acutely suicidal [ ]b) A danger to self (eg, self-mutilating or suicidal behavior) [ ]c) A danger to others (eg, assaultive or homicidal behavior) [ ]d) Incapacitated because of grave disability (eg, inability to provide for self at lower level of care) (92) [ ]XXVII. Inpatient monitoring needed; examples include(1)(3)(87)(93)(94)(95)(96 ): [ ]a) Vital signs, neurologic signs, or vascular checks more frequently than every 4 hours [ ]b) Cardiac or respiratory monitoring beyond the scope (eg, over 24 hours) of observation care [ ]c) Pulmonary artery catheter monitoring [ ]d) Suspected compartment syndrome(97) (98) [ ]e) Cerebral bleeding, hydrocephalus, or vasospasm monitoring [ ]f) Increased intracranial pressure or cerebral edema monitoring [ ]g) monitoring [ ]XXVIII. Treatment requiring inpatient care; examples include: [ ]a) IV fluid to replace significant ongoing losses (greater than 3 L/m2 per day)(53) [ ]b) High concentration oxygen (greater than 40%)(33)(99)(100) [ ]c) Frequent respiratory therapy (more frequently than every 4 hours) to maintain airflow rates greater than 60% of baseline(33)(99)(100) [ ]d) Epidural analgesia(87) [ ]e) IV anticoagulation, vasoactive, or antiarrhythmic medication(19 )(23) [ ]f) Acute thrombolytics (generally require 24 hours of observation )(101)(102) [ ]XXIX. Emergency procedures needed; examples include: [ ]a) Emergency inpatient surgery [ ]b) Temporary pacemaker placement(103) [ ]c) Chest tube placement with active evacuation (eg, suction, drainage)(104) [ ]d) Emergent cardioversion(105) [ ]e) Emergent cardiac or vascular procedures (eg, cardiac catheterization, angioplasty) (17)(18) [ ]f) Emergent dialysis access placement and institution(10)(106) [ ]g) Emergent pericardiocentesis(107) [ ]h) Emergent plasmapheresis or leukapheresis(83) [ ]i) Emergent tracheostomy The original [employer] content created by [employer] has been revised. The portions of the content which have been revised are identified through the use of italic text or in bold, and [employer] has neither reviewed nor approved the modified material. All other unmodified content is copyright [employer]. Please see references footnoted in the original [employer] edition 2016 Admission Criteria Met: Yes
[2016-07-24] MEDS ORDERED: PROAIR IH PRN (09:31)
[2016-07-24] MEDS ORDERED: DULCOLAX PR PRN (09:36)
[2016-07-24] MEDS ORDERED: TYLENOL PO PRN (09:36)
[2016-07-24] MEDS ORDERED: D50W (25GM) IV PRN (09:36)
[2016-07-24] MEDS ORDERED: MILK OF MAGNESIA PO PRN (09:36)
[2016-07-24] MEDS ORDERED: ZOFRAN IV PRN (09:36)
[2016-07-24] MEDS ORDERED: APRESOLINE IV PRN (09:39)
[2016-07-24] MEDS ORDERED: RANITIDINE HCL 150 MG PO SCH (10:00)
[2016-07-24] MEDS ORDERED: TOPAMAX PO SCH (10:00)
[2016-07-24] MEDS ORDERED: LOVENOX SUB-Q SCH (10:00)
[2016-07-24] MEDS ORDERED: PROVENTIL IH PRN (10:13)
[2016-07-24] MEDS ORDERED: PERCOCET 5/325 ONE (11:23)
[2016-07-24] MEDS: PERCOCET 5/325 PO SCH ×4 (11:27→21:31)
--- NOTE | 2016-07-24 11:56 | History and Physical Report ---
History of Present Illness Date of examination: 07/24/16 Date of admission: 07/24/16 08:46 Chief complaint: weakness and fatigue History of present illness: 55-year-old female patient presented to the ED via EMS with complaints of weakness with history of Morbid obesity, HTN, DM, PVD, Lymphedema, Venous ulcerations, CHF, Hypothyroidism. She takes acarbose and Januvia daily, denies insulin use. When patient arrived to the ED her blood glucose was 40. Patient reported she was weak since yesterday afternoon and by morning, she was too weak to get out of bed on her own this. Pt's significant other assisted her to the bathroom, sat on the toilet waited for EMS to arrived. Patient reported ulcers to the left ankle and right heel. Patient stated she goes to the outpatient wound care clinic. Patient denies fevers, chills, headaches, dizziness, nausea, vomiting, chest pain, shortness of breath, abdominal pain. Past History Past Medical History: No medical history, diabetes, DVT (Left lower leg), GERD, hypertension (as tolerated), hypothyroidism, renal failure, stroke (TIA), other (Morbid Obesity, Lymphedema) Past Surgical History: , thyroidectomy (2010), total knee replacement ( Right Knee 1985), Other (Gastric Bypass 2004, Left leg varicose removal 2007,) Social history: denies: smoking (Lives with partner) Family history: diabetes, hypertension Medications and Allergies Allergies Allergy/AdvReac Type Severity Reaction Status Date / Time clindamycin Allergy Severe Itching Verified 11/05/14 13:20 ibuprofen Allergy Unknown Verified 11/03/14 08:12 Penicillins Allergy Swelling Verified 04/20/16 11:58 Home Medications Medication Instructions Recorded Confirmed Last Taken Type Ranitidine HCl [Zantac 75 MG TAB] 150 mg PO QDAY 11/03/14 04/20/16 03/06/15 History Topiramate [Topamax] 100 mg PO BID 11/09/14 04/20/16 03/06/15 History Levothyroxine [Synthroid] 112 mcg PO DAILY@0600 03/07/15 04/20/16 03/06/15 History Simvastatin [Zocor TAB] 40 mg PO QHS 03/07/15 04/20/16 03/06/15 History ALBUTEROL Inhaler [ProAir HFA 2 puff IH QID PRN 12/10/15 04/20/16 Unknown History Inhaler] Acarbose [Precose] 25 mg PO TID 12/10/15 04/20/16 Unknown History Gabapentin [Neurontin] 300 mg PO Q8HR 12/10/15 04/20/16 Unknown History Nortriptyline [Pamelor] 10 mg PO QHS 12/10/15 04/20/16 Unknown History Ropinirole HCl [Requip] 0.5 mg PO TID 12/10/15 04/20/16 Unknown History oxyCODONE /ACETAMINOPHEN [Percocet 1 tab PO Q4HR 12/10/15 04/20/16 Unknown History 5/325 mg] Sitagliptin Phosphate [Januvia] 50 mg PO DAILY #30 tablet 12/11/15 04/20/16 Unknown Rx Ciprofloxacin HCl [Ciprofloxacin 250 mg PO BID #10 tablet 04/25/16 Unknown Rx TAB] Active Meds: Active Medications Acetaminophen (Tylenol) 650 mg PO Q4H PRN PRN Reason: Pain MILD(1-3)/Fever >100.5/BOWMAN Albuterol (Proventil) 2.5 mg IH Q6HRT PRN PRN Reason: Shortness Of Breath Bisacodyl (Dulcolax) 10 mg TX QDAY PRN PRN Reason: Constipation unrelieved by MOM Dextrose (D50w (25gm)) 50 ml IV PRN PRN PRN Reason: Hypoglycemia Enoxaparin Sodium (Lovenox) 60 mg SUB-Q DAILY LV Famotidine (Pepcid) 20 mg PO DAILY LV Gabapentin (Neurontin) 300 mg PO Q8HR LV Hydralazine HCl (Apresoline) 10 mg IV Q4HR PRN PRN Reason: BP >160/100 Dextrose (D10w) 1,000 mls @ 125 mls/hr IV DIRECT LV Last Admin: 07/24/16 08:45 Dose: 125 mls/hr Insulin Aspart (Novolog) 0 units SUB-Q ACHS LV PRN Reason: Protocol Levothyroxine Sodium (Synthroid) 112 mcg PO DAILY@0600 LV Magnesium Hydroxide (Milk Of Magnesia) 30 ml PO Q4H PRN PRN Reason: Constipation Nortriptyline HCl (Pamelor) 10 mg PO QHS LV Ondansetron HCl (Zofran) 4 mg IV Q8H PRN PRN Reason: N/V unrelieved by Reglan Oxycodone/Acetaminophen (Percocet 5/325) 1 tab PO Q4HR [facility] Last Admin: 07/24/16 11:27 Dose: 1 tab Ropinirole HCl (Requip) 0.5 mg PO TID [facility] Simvastatin (Zocor) 40 mg PO QHS [facility] Topiramate (Topamax) 100 mg PO BID [facility] Review of Systems All systems: negative Constitutional: weakness, no fever, no chills Ears, nose, mouth and throat: deferred Breasts: deferred Cardiovascular: no chest pain Respiratory: no cough, no congestion Gastrointestinal: no abdominal pain, no nausea, no vomiting Genitourinary Female: no dyspareunia Rectal: no pain Musculoskeletal: no neck stiffness, no neck pain, no arm numbness/tingling Integumentary: other (Left ankle wound and Right heel wound) Neurological: no head injury, no headaches Psychiatric: anxiety Endocrine: high blood sugars Allergic/Immunologic: no seasonal allergies Exam - Constitutional Vitals: Temp Pulse Resp BP Pulse Ox 97.8 F 95 H 20 154/98 98 07/24/16 02:46 07/24/16 10:39 07/24/16 11:27 07/24/16 10:39 07/24/16 10:39 General appearance: Present: no acute distress - EENT Eyes: Present: PERRL ENT: hearing intact, clear oral mucosa - Neck Neck: Present: supple, normal ROM - Respiratory Respiratory effort: normal - Cardiovascular Heart Sounds: Present: S1 & S2. Absent: rub, click - Extremities Extremity abnormal: edema (bilateral LE lymphedema), ulceration (Left malleolus - stage 3, Right heel-stage 2, no surrounding erythema or tenderness, scant mucoid discharge) - Abdominal General gastrointestinal: Present: non-tender, other (obese) - Rectal Rectal Exam: deferred - Integumentary Integumentary: Present: warm, dry - Musculoskeletal Musculoskeletal: generalized weakness - Psychiatric Psychiatric: intact judgment & insight - Neurologic Neurologic: moves all extremities - Allied Health Allied health notes reviewed: nursing Results - Labs CBC & Chem 7: 07/24/16 03:54 07/25/16 06:31 Labs: Laboratory Last Values WBC 6.9 K/mm3 (4.5-11.0) 07/24/16 03:54 RBC 3.32 M/mm3 (3.65-5.03) L 07/24/16 03:54 Hgb 9.6 gm/dl (10.1-14.3) L 07/24/16 03:54 Hct 31.6 % (30.3-42.9) 07/24/16 03:54 MCV 95 fl (79-97) 07/24/16 03:54 MCH 29 pg (28-32) 07/24/16 03:54 MCHC 31 % (30-34) 07/24/16 03:54 RDW 20.0 % (13.2-15.2) H 07/24/16 03:54 Plt Count 219 K/mm3 (140-440) 07/24/16 03:54 Lymph % (Auto) 13.8 % (13.4-35.0) 07/24/16 03:54 [place] % (Auto) 9.0 % (0.0-7.3) H 07/24/16 03:54 Eos % (Auto) 1.6 % (0.0-4.3) 07/24/16 03:54 Baso % (Auto) 1.1 % (0.0-1.8) 07/24/16 03:54 Lymph # 1.0 K/mm3 (1.2-5.4) L 07/24/16 03:54 [place] # 0.6 K/mm3 (0.0-0.8) 07/24/16 03:54 Eos # 0.1 K/mm3 (0.0-0.4) 07/24/16 03:54 Baso # 0.1 K/mm3 (0.0-0.1) 07/24/16 03:54 Seg Neutrophils % 74.5 % (40.0-70.0) H 07/24/16 03:54 Seg Neutrophils # 5.1 K/mm3 (1.8-7.7) 07/24/16 03:54 Sodium 141 mmol/L (137-145) 07/24/16 03:54 Potassium 4.6 mmol/L (3.6-5.0) 07/24/16 03:54 Chloride 108.5 mmol/L (98-107) H 07/24/16 03:54 Carbon Dioxide 17 mmol/L (22-30) L 07/24/16 03:54 Anion Gap 20 mmol/L 07/24/16 03:54 BUN 44 mg/dL (7-17) H 07/24/16 03:54 Creatinine 3.4 mg/dL (0.7-1.2) H 07/24/16 03:54 Estimated GFR 17 ml/min 07/24/16 03:54 BUN/Creatinine Ratio 12.94 % 07/24/16 03:54 Glucose 59 mg/dL (65-100) L 07/24/16 03:54 POC Glucose 71 (70-105) 07/24/16 10:33 Lactic Acid 1.40 mmol/L (0.7-2.0) 07/24/16 06:58 Calcium 7.5 mg/dL (8.4-10.2) L 07/24/16 03:54 Total Bilirubin < 0.20 mg/dL (0.1-1.2) 07/24/16 03:54 AST 25 units/L (5-40) 07/24/16 03:54 ALT 15 units/L (7-56) 07/24/16 03:54 Alkaline Phosphatase 55 units/L (35-129) 07/24/16 03:54 Total Protein 6.0 g/dL (6.3-8.2) L 07/24/16 03:54 Albumin 2.2 g/dL (3.9-5) L 07/24/16 03:54 Albumin/Globulin Ratio 0.6 % 07/24/16 03:54 Urine Color Yellow (Yellow) 07/24/16 05:45 Urine Turbidity Clear (Clear) 07/24/16 05:45 Urine pH 5.0 (5.0-7.0) 07/24/16 05:45 Ur Specific [place] 1.012 (1.003-1.030) 07/24/16 05:45 Urine Protein 100 mg/dl mg/dL (Negative) 07/24/16 05:45 Urine Glucose (UA) Neg mg/dL (Negative) 07/24/16 05:45 Urine Ketones Neg mg/dL (Negative) 07/24/16 05:45 Urine Blood Neg (Negative) 07/24/16 05:45 Urine Nitrite Neg (Negative) 07/24/16 05:45 Urine Bilirubin Neg (Negative) 07/24/16 05:45 Urine Urobilinogen < 2.0 mg/dL (<2.0) 07/24/16 05:45 Ur Leukocyte Esterase Neg (Negative) 07/24/16 05:45 Urine WBC (Auto) 2.0 /HPF (0.0-6.0) 07/24/16 05:45 Urine RBC (Auto) 1.0 /HPF (0.0-6.0) 07/24/16 05:45 U Epithel Cells (Auto) < 1.0 /HPF (0-13.0) 07/24/16 05:45 Amorphous Crystals 1+ 07/24/16 05:45 Granular Casts 7 /LPF 07/24/16 05:45 Urine Mucus Few /HPF 07/24/16 05:45 - Imaging and Cardiology EKG: image reviewed (EKG NSR, HR 86) Assessment and Plan Assessment and plan: 55-year-old female patient presented to the ED via EMS with complaints of weakness with history of of Morbid obesity, HTN, DM, PVD, Lymphedema, Venous ulcerations, Hypothyroidism, she takes acarbose and januvia at home and she presents with weakness fatigue found to have persistent hypoglycemia despite several doses of D50w, sugar and juice. 1. Hypoglycemia - after many attempts to maintain BG started D10 drip , Oral Diabetes meds on hold, monitor fingersticks 2. Metabolic Encephalopathy to due hypoglcemia BG of 40. Continue D10 drip, monitor fingersticks 3. Chronic kidney disease, stage IV judicious use of lasix, Avoid nephrotoxins 4. Hypertension -continue antihypertensive meds 5. Venous statsis ulcerations - Left lateral malleolus and right heel ulcerations, consult wound care 6. Type 2 DM-non insulin dependent obtain a1c, is actually hypoglycemic, oral hypoglycemics on hold, SSI 7. Hypothyroidism-continue levothyroxin daily 8. PMHX of Lymphedema - Lasix ordered, continue wound care DVT Prophylaxis - Lovenox, SQ, Advance Directives: Yes VTE prophylaxis?: Chemical Plan of care discussed with patient/family: Yes
[2016-07-24] MEDS: NOVOLOG SUB-Q SCH ×3 (12:54→22:40)
[2016-07-24] MEDS ORDERED: PNEUMOVAX 23 IM ONE (14:52)
[2016-07-24] MEDS: NEURONTIN PO SCH ×2 (15:34→21:11)
[2016-07-24] MEDS: LASIX IV SCH (15:35)
[2016-07-24] MEDS: LOVENOX SUB-Q SCH (15:36)
[2016-07-24] MEDS: PEPCID PO SCH (15:36)
[2016-07-24] MEDS: TOPAMAX PO SCH ×2 (15:38→21:11)
[2016-07-24] MEDS: REQUIP PO SCH ×2 (15:39→21:11)
[2016-07-24] MEDS: ZOCOR PO SCH (21:11)
[2016-07-24] MEDS: PAMELOR PO SCH (21:11)
[2016-07-24] MEDS ORDERED: ZOCOR PO SCH (22:00)
[2016-07-25] MEDS: PERCOCET 5/325 PO SCH ×6 (02:35→23:47)
[2016-07-25] MEDS: D10W 1,000 ML IV SCH ×2 (04:29→13:14)
[2016-07-25] MEDS ORDERED: SYNTHROID PO SCH (06:00)
[2016-07-25] MEDS: NEURONTIN PO SCH ×3 (06:26→23:46)
[2016-07-25] MEDS: SYNTHROID PO SCH (06:26)
[2016-07-25 07:09] LABS: BUN/Creatinine Ratio 11.66; Calcium 7.5 mg/dL (8.4-10.2); Chloride 106.7 mmol/L (98-107); Potassium 3.9 mmol/L (3.6-5.0)
[2016-07-25] MEDS: NOVOLOG SUB-Q SCH ×3 (08:14→17:22)
--- NOTE | 2016-07-25 08:36 | Progress Note ---
Assessment and Plan Assessment and plan: Hypoglycemia. Patient presented with hypoglycemia with blood glucose of 43. Now started on 10%Dextrose drip. Fingerstick glucose still not up to 200 so will continue drip. Change diet to Regular diet to improve glucose level. Oral Diabetes meds on hold, monitor fingersticks, check A1C Metabolic encephalopathy due to hypoglcemia with blood glucose of 43. Improving. Continue D10 drip, monitor fingersticks Chronic kidney disease stage IV Diabetes Mellitus type II. Januvia and Acarbose on hold because of hypoglycemia. Check A1c Hypertension -continue antihypertensive meds Hypothyroidism -continue levothyroxine daily Bilateral chronic foot and leg ulcers. Wound care Nurse Ulcer right gluteal fold, chronic. DVT prophylaxis with Lovenox FULL CODE STATUS Possible discharge tomorrow morning, if glucose normal off 10%Dextrose History Interval history: Patient admitted with hypoglycemia, Feels better Hospitalist Physical - Physical exam Narrative exam: Appearance: Not in acute distress, morbidly obese HEENT: normocephalic, atraumatic Neck : supple, no JVD Lungs: Clear to auscultation bilaterally, no crackles or wheeze Heart : S1 and S2 regular, no murmurs, rubs or gallop Abdomen: soft, nontender, nondistended, normal bowel sounds Extremities: bilateral foot and leg ulcers,chronic. No clubbing or cyanosis Neuro: Awake alert oriented 3, no focal neurologic signs Psych: normal mood - Constitutional Vitals: Temp Pulse Resp BP Pulse Ox 98.3 F 92 H 22 128/68 100 07/25/16 08:02 07/25/16 08:02 07/25/16 08:02 07/25/16 08:02 07/25/16 08:02 General appearance: Present: no acute distress Results - Labs CBC & Chem 7: 07/24/16 03:54 07/25/16 06:31 Labs: Laboratory Last Values WBC 6.9 K/mm3 (4.5-11.0) 07/24/16 03:54 RBC 3.32 M/mm3 (3.65-5.03) L 07/24/16 03:54 Hgb 9.6 gm/dl (10.1-14.3) L 07/24/16 03:54 Hct 31.6 % (30.3-42.9) 07/24/16 03:54 MCV 95 fl (79-97) 07/24/16 03:54 MCH 29 pg (28-32) 07/24/16 03:54 MCHC 31 % (30-34) 07/24/16 03:54 RDW 20.0 % (13.2-15.2) H 07/24/16 03:54 Plt Count 219 K/mm3 (140-440) 07/24/16 03:54 Lymph % (Auto) 13.8 % (13.4-35.0) 07/24/16 03:54 [place] % (Auto) 9.0 % (0.0-7.3) H 07/24/16 03:54 Eos % (Auto) 1.6 % (0.0-4.3) 07/24/16 03:54 Baso % (Auto) 1.1 % (0.0-1.8) 07/24/16 03:54 Lymph # 1.0 K/mm3 (1.2-5.4) L 07/24/16 03:54 [place] # 0.6 K/mm3 (0.0-0.8) 07/24/16 03:54 Eos # 0.1 K/mm3 (0.0-0.4) 07/24/16 03:54 Baso # 0.1 K/mm3 (0.0-0.1) 07/24/16 03:54 Seg Neutrophils % 74.5 % (40.0-70.0) H 07/24/16 03:54 Seg Neutrophils # 5.1 K/mm3 (1.8-7.7) 07/24/16 03:54 Sodium 142 mmol/L (137-145) 07/25/16 06:31 Potassium 3.9 mmol/L (3.6-5.0) 07/25/16 06:31 Chloride 106.7 mmol/L (98-107) 07/25/16 06:31 Carbon Dioxide 21 mmol/L (22-30) L 07/25/16 06:31 Anion Gap 18 mmol/L 07/25/16 06:31 BUN 42 mg/dL (7-17) H 07/25/16 06:31 Creatinine 3.6 mg/dL (0.7-1.2) H 07/25/16 06:31 Estimated GFR 16 ml/min 07/25/16 06:31 BUN/Creatinine Ratio 11.66 % 07/25/16 06:31 Glucose 133 mg/dL (65-100) H 07/25/16 06:31 POC Glucose 135 (70-105) H 07/25/16 06:15 Lactic Acid 1.40 mmol/L (0.7-2.0) 07/24/16 06:58 Calcium 7.5 mg/dL (8.4-10.2) L 07/25/16 06:31 Total Bilirubin < 0.20 mg/dL (0.1-1.2) 07/24/16 03:54 AST 25 units/L (5-40) 07/24/16 03:54 ALT 15 units/L (7-56) 07/24/16 03:54 Alkaline Phosphatase 55 units/L (35-129) 07/24/16 03:54 Total Protein 6.0 g/dL (6.3-8.2) L 07/24/16 03:54 Albumin 2.2 g/dL (3.9-5) L 07/24/16 03:54 Albumin/Globulin Ratio 0.6 % 07/24/16 03:54 Urine Color Yellow (Yellow) 07/24/16 05:45 Urine Turbidity Clear (Clear) 07/24/16 05:45 Urine pH 5.0 (5.0-7.0) 07/24/16 05:45 Ur Specific [place] 1.012 (1.003-1.030) 07/24/16 05:45 Urine Protein 100 mg/dl mg/dL (Negative) 07/24/16 05:45 Urine Glucose (UA) Neg mg/dL (Negative) 07/24/16 05:45 Urine Ketones Neg mg/dL (Negative) 07/24/16 05:45 Urine Blood Neg (Negative) 07/24/16 05:45 Urine Nitrite Neg (Negative) 07/24/16 05:45 Urine Bilirubin Neg (Negative) 07/24/16 05:45 Urine Urobilinogen < 2.0 mg/dL (<2.0) 07/24/16 05:45 Ur Leukocyte Esterase Neg (Negative) 07/24/16 05:45 Urine WBC (Auto) 2.0 /HPF (0.0-6.0) 07/24/16 05:45 Urine RBC (Auto) 1.0 /HPF (0.0-6.0) 07/24/16 05:45 U Epithel Cells (Auto) < 1.0 /HPF (0-13.0) 07/24/16 05:45 Amorphous Crystals 1+ 07/24/16 05:45 Granular Casts 7 /LPF 07/24/16 05:45 Urine Mucus Few /HPF 07/24/16 05:45
[2016-07-25] MEDS: LOVENOX SUB-Q SCH (10:07)
[2016-07-25] MEDS: LASIX IV SCH (10:08)
[2016-07-25] MEDS: PEPCID PO SCH (10:08)
[2016-07-25] MEDS: REQUIP PO SCH ×3 (10:09→23:47)
[2016-07-25] MEDS: TOPAMAX PO SCH ×2 (12:39→23:46)
[2016-07-25] MEDS ORDERED: BENADRYL IV SCH (16:00)
[2016-07-25] MEDS: PAMELOR PO SCH (23:50)
[2016-07-26] MEDS: ZOCOR PO SCH (00:04)
[2016-07-26] MEDS: NOVOLOG SUB-Q SCH ×3 (00:05→13:56)
[2016-07-26] MEDS: PERCOCET 5/325 PO SCH ×4 (02:00→13:55)
[2016-07-26] MEDS: D10W 1,000 ML IV SCH (04:04)
[2016-07-26] MEDS: SYNTHROID PO SCH (06:59)
[2016-07-26] MEDS: NEURONTIN PO SCH ×2 (07:00→13:55)
--- NOTE | 2016-07-26 09:08 | Progress Note ---
Hospitalist Physical - Constitutional Vitals: Temp Pulse Resp BP Pulse Ox 98.1 F 92 H 22 134/78 100 07/26/16 08:00 07/26/16 08:00 07/26/16 08:00 07/26/16 08:00 07/26/16 08:00 General appearance: Present: no acute distress Results - Labs CBC & Chem 7: 07/24/16 03:54 07/25/16 06:31 Labs: Laboratory Last Values WBC 6.9 K/mm3 (4.5-11.0) 07/24/16 03:54 RBC 3.32 M/mm3 (3.65-5.03) L 07/24/16 03:54 Hgb 9.6 gm/dl (10.1-14.3) L 07/24/16 03:54 Hct 31.6 % (30.3-42.9) 07/24/16 03:54 MCV 95 fl (79-97) 07/24/16 03:54 MCH 29 pg (28-32) 07/24/16 03:54 MCHC 31 % (30-34) 07/24/16 03:54 RDW 20.0 % (13.2-15.2) H 07/24/16 03:54 Plt Count 219 K/mm3 (140-440) 07/24/16 03:54 Lymph % (Auto) 13.8 % (13.4-35.0) 07/24/16 03:54 [place] % (Auto) 9.0 % (0.0-7.3) H 07/24/16 03:54 Eos % (Auto) 1.6 % (0.0-4.3) 07/24/16 03:54 Baso % (Auto) 1.1 % (0.0-1.8) 07/24/16 03:54 Lymph # 1.0 K/mm3 (1.2-5.4) L 07/24/16 03:54 [place] # 0.6 K/mm3 (0.0-0.8) 07/24/16 03:54 Eos # 0.1 K/mm3 (0.0-0.4) 07/24/16 03:54 Baso # 0.1 K/mm3 (0.0-0.1) 07/24/16 03:54 Seg Neutrophils % 74.5 % (40.0-70.0) H 07/24/16 03:54 Seg Neutrophils # 5.1 K/mm3 (1.8-7.7) 07/24/16 03:54 Sodium 142 mmol/L (137-145) 07/25/16 06:31 Potassium 3.9 mmol/L (3.6-5.0) 07/25/16 06:31 Chloride 106.7 mmol/L (98-107) 07/25/16 06:31 Carbon Dioxide 21 mmol/L (22-30) L 07/25/16 06:31 Anion Gap 18 mmol/L 07/25/16 06:31 BUN 42 mg/dL (7-17) H 07/25/16 06:31 Creatinine 3.6 mg/dL (0.7-1.2) H 07/25/16 06:31 Estimated GFR 16 ml/min 07/25/16 06:31 BUN/Creatinine Ratio 11.66 % 07/25/16 06:31 Glucose 133 mg/dL (65-100) H 07/25/16 06:31 POC Glucose 232 (70-105) H 07/26/16 06:13 Hemoglobin A1c 5.7 % (4-6) 07/25/16 08:02 Lactic Acid 1.40 mmol/L (0.7-2.0) 07/24/16 06:58 Calcium 7.5 mg/dL (8.4-10.2) L 07/25/16 06:31 Total Bilirubin < 0.20 mg/dL (0.1-1.2) 07/24/16 03:54 AST 25 units/L (5-40) 07/24/16 03:54 ALT 15 units/L (7-56) 07/24/16 03:54 Alkaline Phosphatase 55 units/L (35-129) 07/24/16 03:54 Total Protein 6.0 g/dL (6.3-8.2) L 07/24/16 03:54 Albumin 2.2 g/dL (3.9-5) L 07/24/16 03:54 Albumin/Globulin Ratio 0.6 % 07/24/16 03:54 Total Cortisol 14.1 mcg/dL () 07/24/16 05:33 Urine Color Yellow (Yellow) 07/24/16 05:45 Urine Turbidity Clear (Clear) 07/24/16 05:45 Urine pH 5.0 (5.0-7.0) 07/24/16 05:45 Ur Specific [place] 1.012 (1.003-1.030) 07/24/16 05:45 Urine Protein 100 mg/dl mg/dL (Negative) 07/24/16 05:45 Urine Glucose (UA) Neg mg/dL (Negative) 07/24/16 05:45 Urine Ketones Neg mg/dL (Negative) 07/24/16 05:45 Urine Blood Neg (Negative) 07/24/16 05:45 Urine Nitrite Neg (Negative) 07/24/16 05:45 Urine Bilirubin Neg (Negative) 07/24/16 05:45 Urine Urobilinogen < 2.0 mg/dL (<2.0) 07/24/16 05:45 Ur Leukocyte Esterase Neg (Negative) 07/24/16 05:45 Urine WBC (Auto) 2.0 /HPF (0.0-6.0) 07/24/16 05:45 Urine RBC (Auto) 1.0 /HPF (0.0-6.0) 07/24/16 05:45 U Epithel Cells (Auto) < 1.0 /HPF (0-13.0) 07/24/16 05:45 Amorphous Crystals 1+ 07/24/16 05:45 Granular Casts 7 /LPF 07/24/16 05:45 Urine Mucus Few /HPF 07/24/16 05:45
--- NOTE | 2016-07-26 09:12 | Discharge Summary ---
Providers - Providers Date of Admission: 07/24/16 08:46 Date of discharge: 07/26/16 Attending physician: SAMMY CALABRESE 07/24/16 09:38 Consult to Wound/ET Nurse [CONS] Routine Reason For Exam: wound eval 07/26/16 07:58 Physical Therapy Evaluation and Treat [CONS] Routine Comment: Reason For Exam: weakness Primary care physician: SAMARIA INTERIANO MD Hospitalization Condition: Fair Disposition: DISCHARGED TO HOME OR SELFCARE - Discharge Diagnoses (1) Hypoglycemia associated with diabetes Status: Acute Core Measure Documentation - Palliative Care Palliative Care/ Comfort Measures: Not Applicable - Core Measures Any of the following diagnoses?: none Exam - Physical Exam Narrative exam: Appearance: Not in acute distress, morbidly obese HEENT: normocephalic, atraumatic Neck : supple, no JVD Lungs: Clear to auscultation bilaterally, no crackles or wheeze Heart : S1 and S2 regular, no murmurs, rubs or gallop Abdomen: soft, nontender, nondistended, normal bowel sounds Extremities: bilateral foot and leg ulcers,chronic. No clubbing or cyanosis Neuro: Awake alert oriented 3, no focal neurologic signs Psych: normal mood - Constitutional Vitals: Temp Pulse Resp BP Pulse Ox 98.1 F 92 H 22 134/78 100 07/26/16 08:00 07/26/16 08:00 07/26/16 08:00 07/26/16 08:00 07/26/16 08:00 Plan Activity: advance as tolerated Diet: low fat, low cholesterol Special Instructions: physical therapy Durable Medical Equipment Needed Upon Discharge: [employer]Rolling Additional Instructions: 1.Follow up with Primary care physician in one week. 2.Home health Physical Therapy Follow up with: SAMARIA INTERIANO MD [Primary Care Provider] - 3-5 Days
[2016-07-26] MEDS: REQUIP PO SCH ×2 (10:34→13:55)
[2016-07-26] MEDS: TOPAMAX PO SCH (10:34)
[2016-07-26] MEDS: LOVENOX SUB-Q SCH (10:37)
[2016-07-26] MEDS: PEPCID PO SCH (10:37)
[2016-07-26 13:57] VITALS: BP 158/80
== END 2016-07-26 15:15 | disposition home health service (06) | DRG 637 ==
LOC: ED 02:39 → 3A 08:46
PROVIDERS: ADMIT Internal Medicine; ATTEND Internal Medicine
DX: E11.649 Type 2 diabetes mellitus with hypoglycemia without coma (principal); G93.41 Metabolic encephalopathy; I13.0 Hypertensive heart and chronic kidney disease with heart failure and stage 1 through stage 4 chronic kidney disease, or unspecified chronic kidney disease; L97.419 Non-pressure chronic ulcer of right heel and midfoot with unspecified severity; L97.829 Non-pressure chronic ulcer of other part of left lower leg with unspecified severity; L97.819 Non-pressure chronic ulcer of other part of right lower leg with unspecified severity; Z68.43 Body mass index [BMI] 50.0-59.9, adult; N18.4 Chronic kidney disease, stage 4 (severe); E11.621 Type 2 diabetes mellitus with foot ulcer; E66.01 Morbid (severe) obesity due to excess calories; E78.5 Hyperlipidemia, unspecified; E11.51 Type 2 diabetes mellitus with diabetic peripheral angiopathy without gangrene; I50.9 Heart failure, unspecified; K21.9 Gastro-esophageal reflux disease without esophagitis; M19.90 Unspecified osteoarthritis, unspecified site; G43.909 Migraine, unspecified, not intractable, without status migrainosus; J44.9 Chronic obstructive pulmonary disease, unspecified; G20 Parkinson's disease; Z96.651 Presence of right artificial knee joint; F41.9 Anxiety disorder, unspecified; I89.0 Lymphedema, not elsewhere classified; E11.22 Type 2 diabetes mellitus with diabetic chronic kidney disease; E03.9 Hypothyroidism, unspecified; I00-I99 Diseases of the circulatory system; L97.529 Non-pressure chronic ulcer of other part of left foot with unspecified severity; L97.519 Non-pressure chronic ulcer of other part of right foot with unspecified severity; Z88.0 Allergy status to penicillin; Z88.1 Allergy status to other antibiotic agents; Z86.718 Personal history of other venous thrombosis and embolism; Z86.73 Personal history of transient ischemic attack (TIA), and cerebral infarction without residual deficits; Z98.84 Bariatric surgery status; Z82.49 Family history of ischemic heart disease and other diseases of the circulatory system; Z83.3 Family history of diabetes mellitus
CPT/HCPCS: 36415; 70450; 71010; 72125; 80048; 80053; 81001; 82140; 82533; 82962; 83036; 85025; 87040; 90732; 93005; 93010; 94660; 94760; 96365; 96375; G8978-GP; G8979-GP; G8980-GP; J0360; J0610; J1200; J1650; J1815; J1940; J2930; J3370

== ENCOUNTER 2016-07-27 10:51 | Outpatient (CLI) | payer MEDICARE ==
[2016-07-27] MEDS ORDERED: XYLOCAINE TOPICAL 4% TP ONE ×2 (11:06→11:32)
[2016-07-27] MEDS ORDERED: SANTYL TP ONE (12:21)
== END 2016-07-27 10:52 | disposition home or self-care (01) ==
LOC: WOUND 10:51
PROVIDERS: ATTEND Surgery
DX: I87.333 Chronic venous hypertension (idiopathic) with ulcer and inflammation of bilateral lower extremity (principal); E11.622 Type 2 diabetes mellitus with other skin ulcer; L97.321 Non-pressure chronic ulcer of left ankle limited to breakdown of skin; L97.811 Non-pressure chronic ulcer of other part of right lower leg limited to breakdown of skin; E11.621 Type 2 diabetes mellitus with foot ulcer; L97.411 Non-pressure chronic ulcer of right heel and midfoot limited to breakdown of skin; L89.153 Pressure ulcer of sacral region, stage 3; I89.0 Lymphedema, not elsewhere classified; K21.0 Gastro-esophageal reflux disease with esophagitis; J44.1 Chronic obstructive pulmonary disease with (acute) exacerbation; E66.01 Morbid (severe) obesity due to excess calories; E78.5 Hyperlipidemia, unspecified; E11.22 Type 2 diabetes mellitus with diabetic chronic kidney disease; I13.0 Hypertensive heart and chronic kidney disease with heart failure and stage 1 through stage 4 chronic kidney disease, or unspecified chronic kidney disease; N18.9 Chronic kidney disease, unspecified; I50.9 Heart failure, unspecified; Z68.44 Body mass index [BMI] 60.0-69.9, adult; Z85.850 Personal history of malignant neoplasm of thyroid

== ENCOUNTER 2016-08-11 09:49 | Outpatient (CLI) | payer MEDICARE ==
[2016-08-11] MEDS ORDERED: XYLOCAINE TOPICAL 4% TP ONE ×2 (10:44→11:44)
[2016-08-11] MEDS ORDERED: SANTYL TP ONE ×2 (11:03→11:43)
== END 2016-08-11 09:50 | disposition home or self-care (01) ==
LOC: WOUND 09:49
PROVIDERS: ATTEND Surgery
DX: I87.333 Chronic venous hypertension (idiopathic) with ulcer and inflammation of bilateral lower extremity (principal); E11.622 Type 2 diabetes mellitus with other skin ulcer; L97.821 Non-pressure chronic ulcer of other part of left lower leg limited to breakdown of skin; L97.811 Non-pressure chronic ulcer of other part of right lower leg limited to breakdown of skin; I89.0 Lymphedema, not elsewhere classified; K21.0 Gastro-esophageal reflux disease with esophagitis; J44.1 Chronic obstructive pulmonary disease with (acute) exacerbation; E66.01 Morbid (severe) obesity due to excess calories; E78.5 Hyperlipidemia, unspecified; E11.22 Type 2 diabetes mellitus with diabetic chronic kidney disease; I13.0 Hypertensive heart and chronic kidney disease with heart failure and stage 1 through stage 4 chronic kidney disease, or unspecified chronic kidney disease; N18.9 Chronic kidney disease, unspecified; I50.9 Heart failure, unspecified; Z68.44 Body mass index [BMI] 60.0-69.9, adult; Z85.850 Personal history of malignant neoplasm of thyroid

== ENCOUNTER 2016-08-18 10:17 | Outpatient (CLI) | payer MEDICARE ==
[2016-08-18] MEDS ORDERED: XYLOCAINE TOPICAL 4% TP ONE (10:29)
== END 2016-08-18 10:18 | disposition home or self-care (01) ==
LOC: WOUND 10:17
PROVIDERS: ATTEND Surgery
DX: E11.621 Type 2 diabetes mellitus with foot ulcer (principal); L97.411 Non-pressure chronic ulcer of right heel and midfoot limited to breakdown of skin; E11.622 Type 2 diabetes mellitus with other skin ulcer; I87.333 Chronic venous hypertension (idiopathic) with ulcer and inflammation of bilateral lower extremity; L97.321 Non-pressure chronic ulcer of left ankle limited to breakdown of skin; L97.821 Non-pressure chronic ulcer of other part of left lower leg limited to breakdown of skin; L89.153 Pressure ulcer of sacral region, stage 3; I89.0 Lymphedema, not elsewhere classified; K21.0 Gastro-esophageal reflux disease with esophagitis; J44.1 Chronic obstructive pulmonary disease with (acute) exacerbation; E66.01 Morbid (severe) obesity due to excess calories; E78.5 Hyperlipidemia, unspecified; E11.22 Type 2 diabetes mellitus with diabetic chronic kidney disease; I13.0 Hypertensive heart and chronic kidney disease with heart failure and stage 1 through stage 4 chronic kidney disease, or unspecified chronic kidney disease; N18.9 Chronic kidney disease, unspecified; I50.9 Heart failure, unspecified; Z85.828 Personal history of other malignant neoplasm of skin

== ENCOUNTER 2016-08-19 11:10 | Outpatient (CLI) | payer MEDICARE ==
--- NOTE | 2016-08-21 14:37 | Vascular Lab Report ---
LEFT LOWER EXTREMITY ARTERIAL DUPLEX: REASON FOR EXAM: Peripheral arterial disease. COMMENTS ON THE RIGHT: Triphasic waveforms are seen distally. COMMENTS ON THE LEFT: Triphasic waveforms are seen proximally. Triphasic waveforms are seen distally. No significant velocity gradients are identified. No focal significant plaque is identified. Findings are consistent with normal perfusion. Findings are consistent with the ability to heal distal wounds. IMPRESSION: LEFT:Essentially normal arterial flow.
== END 2016-08-19 11:11 | disposition home or self-care (01) ==
LOC: MRI 11:10
PROVIDERS: ATTEND Surgery
DX: L97.329 Non-pressure chronic ulcer of left ankle with unspecified severity (principal); I50.9 Heart failure, unspecified; E11.9 Type 2 diabetes mellitus without complications; J45.909 Unspecified asthma, uncomplicated; I10 Essential (primary) hypertension; J44.9 Chronic obstructive pulmonary disease, unspecified

== ENCOUNTER 2016-08-24 09:57 | Outpatient (CLI) | payer MEDICARE ==
[2016-08-24] MEDS ORDERED: XYLOCAINE TOPICAL 4% TP ONE (10:51)
[2016-08-24] MEDS ORDERED: SILVER NITRATE TP ONE ×2 (11:45→14:05)
== END 2016-08-24 09:58 | disposition home or self-care (01) ==
LOC: WOUND 09:57
PROVIDERS: ATTEND Internal Medicine
DX: I87.333 Chronic venous hypertension (idiopathic) with ulcer and inflammation of bilateral lower extremity (principal); E11.621 Type 2 diabetes mellitus with foot ulcer; L97.411 Non-pressure chronic ulcer of right heel and midfoot limited to breakdown of skin; E11.622 Type 2 diabetes mellitus with other skin ulcer; L97.321 Non-pressure chronic ulcer of left ankle limited to breakdown of skin; K21.0 Gastro-esophageal reflux disease with esophagitis; J44.1 Chronic obstructive pulmonary disease with (acute) exacerbation; E66.01 Morbid (severe) obesity due to excess calories; E78.5 Hyperlipidemia, unspecified; E11.22 Type 2 diabetes mellitus with diabetic chronic kidney disease; I13.0 Hypertensive heart and chronic kidney disease with heart failure and stage 1 through stage 4 chronic kidney disease, or unspecified chronic kidney disease; N18.9 Chronic kidney disease, unspecified; I50.40 Unspecified combined systolic (congestive) and diastolic (congestive) heart failure; I89.0 Lymphedema, not elsewhere classified; Z68.44 Body mass index [BMI] 60.0-69.9, adult; Z85.850 Personal history of malignant neoplasm of thyroid
CPT/HCPCS: 11055; 97605

== ENCOUNTER 2016-08-31 09:54 | Outpatient (CLI) | payer MEDICARE ==
[2016-08-31] MEDS ORDERED: XYLOCAINE TOPICAL 4% TP ONE (11:23)
[2016-08-31] MEDS ORDERED: AD OINTMENT TP ONE (12:07)
[2016-09-01] MEDS ORDERED: AD OINTMENT TP SCH (10:00)
== END 2016-08-31 09:55 | disposition home or self-care (01) ==
LOC: WOUND 09:54
PROVIDERS: ATTEND Internal Medicine
DX: I87.333 Chronic venous hypertension (idiopathic) with ulcer and inflammation of bilateral lower extremity (principal); E11.622 Type 2 diabetes mellitus with other skin ulcer; L97.321 Non-pressure chronic ulcer of left ankle limited to breakdown of skin; L97.311 Non-pressure chronic ulcer of right ankle limited to breakdown of skin; E11.621 Type 2 diabetes mellitus with foot ulcer; L97.411 Non-pressure chronic ulcer of right heel and midfoot limited to breakdown of skin; I89.0 Lymphedema, not elsewhere classified; K21.0 Gastro-esophageal reflux disease with esophagitis; J44.1 Chronic obstructive pulmonary disease with (acute) exacerbation; E66.01 Morbid (severe) obesity due to excess calories; E11.22 Type 2 diabetes mellitus with diabetic chronic kidney disease; I13.0 Hypertensive heart and chronic kidney disease with heart failure and stage 1 through stage 4 chronic kidney disease, or unspecified chronic kidney disease; N18.9 Chronic kidney disease, unspecified; E78.5 Hyperlipidemia, unspecified; I50.9 Heart failure, unspecified; Z68.44 Body mass index [BMI] 60.0-69.9, adult; Z85.850 Personal history of malignant neoplasm of thyroid
CPT/HCPCS: 11055; 97605; A6250

== ENCOUNTER 2016-09-03 08:58 | Outpatient (CLI) | payer MEDICARE | END 2016-09-03 08:59 | disposition home or self-care (01) | LOC: CT 08:58 | PROVIDERS: ATTEND Radiology Diagnostic Radiology | DX: I70.25 Atherosclerosis of native arteries of other extremities with ulceration (principal); I87.2 Venous insufficiency (chronic) (peripheral); I89.0 Lymphedema, not elsewhere classified; I11.0 Hypertensive heart disease with heart failure; I50.9 Heart failure, unspecified; E78.00 Pure hypercholesterolemia, unspecified; J44.9 Chronic obstructive pulmonary disease, unspecified; D64.9 Anemia, unspecified | CPT/HCPCS: 36415; 82565; 84520 ==

== ENCOUNTER 2016-09-07 10:56 | Outpatient (CLI) | payer MEDICARE ==
[2016-09-07] MEDS ORDERED: XYLOCAINE TOPICAL 4% TP ONE ×2 (11:37)
== END 2016-09-07 10:57 | disposition home or self-care (01) ==
LOC: WOUND 10:56
PROVIDERS: ATTEND Internal Medicine
DX: E11.621 Type 2 diabetes mellitus with foot ulcer (principal); L97.411 Non-pressure chronic ulcer of right heel and midfoot limited to breakdown of skin; E11.622 Type 2 diabetes mellitus with other skin ulcer; L97.321 Non-pressure chronic ulcer of left ankle limited to breakdown of skin; I87.333 Chronic venous hypertension (idiopathic) with ulcer and inflammation of bilateral lower extremity; L97.821 Non-pressure chronic ulcer of other part of left lower leg limited to breakdown of skin; L97.811 Non-pressure chronic ulcer of other part of right lower leg limited to breakdown of skin; I89.0 Lymphedema, not elsewhere classified; I87.2 Venous insufficiency (chronic) (peripheral); K21.0 Gastro-esophageal reflux disease with esophagitis; J44.1 Chronic obstructive pulmonary disease with (acute) exacerbation; E66.01 Morbid (severe) obesity due to excess calories; E11.22 Type 2 diabetes mellitus with diabetic chronic kidney disease; I13.0 Hypertensive heart and chronic kidney disease with heart failure and stage 1 through stage 4 chronic kidney disease, or unspecified chronic kidney disease; N18.9 Chronic kidney disease, unspecified; I50.9 Heart failure, unspecified; N17.9 Acute kidney failure, unspecified; Z68.1 Body mass index [BMI] 19.9 or less, adult; Z85.850 Personal history of malignant neoplasm of thyroid
CPT/HCPCS: 97605

== ENCOUNTER 2016-09-14 10:09 | Outpatient (CLI) | payer MEDICARE ==
[2016-09-14] MEDS ORDERED: XYLOCAINE TOPICAL 4% TP ONE ×2 (10:39→10:49)
== END 2016-09-14 10:10 | disposition home or self-care (01) ==
LOC: WOUND 10:09
PROVIDERS: ATTEND Internal Medicine
DX: E11.622 Type 2 diabetes mellitus with other skin ulcer (principal); L97.321 Non-pressure chronic ulcer of left ankle limited to breakdown of skin; I89.0 Lymphedema, not elsewhere classified; K21.0 Gastro-esophageal reflux disease with esophagitis; J44.1 Chronic obstructive pulmonary disease with (acute) exacerbation; E66.01 Morbid (severe) obesity due to excess calories; E11.22 Type 2 diabetes mellitus with diabetic chronic kidney disease; I13.0 Hypertensive heart and chronic kidney disease with heart failure and stage 1 through stage 4 chronic kidney disease, or unspecified chronic kidney disease; N18.9 Chronic kidney disease, unspecified; I50.9 Heart failure, unspecified; E78.5 Hyperlipidemia, unspecified; Z68.44 Body mass index [BMI] 60.0-69.9, adult; Z85.850 Personal history of malignant neoplasm of thyroid
CPT/HCPCS: 97605

== ENCOUNTER 2016-09-28 09:53 | Outpatient (CLI) | payer MEDICARE ==
[2016-09-28] MEDS ORDERED: XYLOCAINE TOPICAL 4% TP ONE ×2 (10:13→10:27)
== END 2016-09-28 09:54 | disposition home or self-care (01) ==
LOC: WOUND 09:53
PROVIDERS: ATTEND Internal Medicine
DX: I87.333 Chronic venous hypertension (idiopathic) with ulcer and inflammation of bilateral lower extremity (principal); E11.622 Type 2 diabetes mellitus with other skin ulcer; L97.321 Non-pressure chronic ulcer of left ankle limited to breakdown of skin; E11.621 Type 2 diabetes mellitus with foot ulcer; L97.411 Non-pressure chronic ulcer of right heel and midfoot limited to breakdown of skin; K21.0 Gastro-esophageal reflux disease with esophagitis; J44.1 Chronic obstructive pulmonary disease with (acute) exacerbation; E66.01 Morbid (severe) obesity due to excess calories; I89.0 Lymphedema, not elsewhere classified; E78.5 Hyperlipidemia, unspecified; E11.22 Type 2 diabetes mellitus with diabetic chronic kidney disease; I13.0 Hypertensive heart and chronic kidney disease with heart failure and stage 1 through stage 4 chronic kidney disease, or unspecified chronic kidney disease; N18.9 Chronic kidney disease, unspecified; I50.9 Heart failure, unspecified; Z68.44 Body mass index [BMI] 60.0-69.9, adult; Z85.850 Personal history of malignant neoplasm of thyroid
CPT/HCPCS: 97605

== ENCOUNTER 2016-09-30 14:58 | Outpatient (CLI) | payer MEDICARE ==
--- NOTE | 2016-09-30 15:41 | XRay Report ---
RIGHT FOOT, 3 views: History: Pain and swelling. There is impressive diffuse soft tissue swelling or edema. Normal bone mineralization. No evidence for fracture, malalignment or bone lesion. No findings to suggest osteomyelitis. IMPRESSION: Diffuse soft tissue swelling. No bony abnormality is detected.
== END 2016-09-30 14:59 | disposition home or self-care (01) ==
LOC: XRAY 14:58
PROVIDERS: ATTEND Internal Medicine
DX: M25.571 Pain in right ankle and joints of right foot (principal); M79.89 Other specified soft tissue disorders; I11.0 Hypertensive heart disease with heart failure; I50.9 Heart failure, unspecified; E11.9 Type 2 diabetes mellitus without complications; I25.10 Atherosclerotic heart disease of native coronary artery without angina pectoris; E78.00 Pure hypercholesterolemia, unspecified; D64.9 Anemia, unspecified; E03.9 Hypothyroidism, unspecified

== ENCOUNTER 2016-10-05 09:21 | Outpatient (CLI) | payer MEDICARE ==
[2016-10-05] MEDS ORDERED: XYLOCAINE TOPICAL 4% TP ONE (10:00)
== END 2016-10-05 09:22 | disposition home or self-care (01) ==
LOC: WOUND 09:21
PROVIDERS: ATTEND Internal Medicine
DX: E11.622 Type 2 diabetes mellitus with other skin ulcer (principal); L97.321 Non-pressure chronic ulcer of left ankle limited to breakdown of skin; I87.333 Chronic venous hypertension (idiopathic) with ulcer and inflammation of bilateral lower extremity; L97.821 Non-pressure chronic ulcer of other part of left lower leg limited to breakdown of skin; L97.811 Non-pressure chronic ulcer of other part of right lower leg limited to breakdown of skin; L84 Corns and callosities; I87.2 Venous insufficiency (chronic) (peripheral); I89.0 Lymphedema, not elsewhere classified; K21.0 Gastro-esophageal reflux disease with esophagitis; J44.1 Chronic obstructive pulmonary disease with (acute) exacerbation; E66.01 Morbid (severe) obesity due to excess calories; Z68.1 Body mass index [BMI] 19.9 or less, adult; E78.5 Hyperlipidemia, unspecified; E11.22 Type 2 diabetes mellitus with diabetic chronic kidney disease; I13.0 Hypertensive heart and chronic kidney disease with heart failure and stage 1 through stage 4 chronic kidney disease, or unspecified chronic kidney disease; N18.9 Chronic kidney disease, unspecified; I50.9 Heart failure, unspecified; Z85.850 Personal history of malignant neoplasm of thyroid
CPT/HCPCS: 11055; 97605

== ENCOUNTER 2016-10-12 09:22 | Outpatient (CLI) | payer MEDICARE ==
[2016-10-12] MEDS ORDERED: XYLOCAINE TOPICAL 4% TP ONE ×2 (09:37→09:45)
== END 2016-10-12 09:23 | disposition home or self-care (01) ==
LOC: WOUND 09:22
PROVIDERS: ATTEND Internal Medicine
DX: I87.333 Chronic venous hypertension (idiopathic) with ulcer and inflammation of bilateral lower extremity (principal); E11.622 Type 2 diabetes mellitus with other skin ulcer; L97.321 Non-pressure chronic ulcer of left ankle limited to breakdown of skin; L97.811 Non-pressure chronic ulcer of other part of right lower leg limited to breakdown of skin; K21.9 Gastro-esophageal reflux disease without esophagitis; I89.0 Lymphedema, not elsewhere classified; J44.9 Chronic obstructive pulmonary disease, unspecified; E66.01 Morbid (severe) obesity due to excess calories; E78.5 Hyperlipidemia, unspecified; E11.22 Type 2 diabetes mellitus with diabetic chronic kidney disease; I13.0 Hypertensive heart and chronic kidney disease with heart failure and stage 1 through stage 4 chronic kidney disease, or unspecified chronic kidney disease; N18.9 Chronic kidney disease, unspecified; I50.9 Heart failure, unspecified; Z85.850 Personal history of malignant neoplasm of thyroid

== ENCOUNTER 2016-10-19 10:40 | Outpatient (CLI) | payer MEDICARE ==
[2016-10-19] MEDS ORDERED: XYLOCAINE TOPICAL 4% TP ONE (10:48)
== END 2016-10-19 10:41 | disposition home or self-care (01) ==
LOC: WOUND 10:40
PROVIDERS: ATTEND Internal Medicine
DX: I87.333 Chronic venous hypertension (idiopathic) with ulcer and inflammation of bilateral lower extremity (principal); E11.622 Type 2 diabetes mellitus with other skin ulcer; L97.321 Non-pressure chronic ulcer of left ankle limited to breakdown of skin; L97.811 Non-pressure chronic ulcer of other part of right lower leg limited to breakdown of skin; I89.0 Lymphedema, not elsewhere classified; K21.0 Gastro-esophageal reflux disease with esophagitis; J44.1 Chronic obstructive pulmonary disease with (acute) exacerbation; E66.01 Morbid (severe) obesity due to excess calories; I10 Essential (primary) hypertension; E78.5 Hyperlipidemia, unspecified; E11.22 Type 2 diabetes mellitus with diabetic chronic kidney disease; I13.0 Hypertensive heart and chronic kidney disease with heart failure and stage 1 through stage 4 chronic kidney disease, or unspecified chronic kidney disease; N18.9 Chronic kidney disease, unspecified; I50.9 Heart failure, unspecified; Z68.44 Body mass index [BMI] 60.0-69.9, adult; Z85.850 Personal history of malignant neoplasm of thyroid

== ENCOUNTER 2016-10-26 10:18 | Outpatient (CLI) | payer MEDICARE ==
[2016-10-26] MEDS ORDERED: XYLOCAINE TOPICAL 4% TP ONE (10:36)
== END 2016-10-26 10:19 | disposition home or self-care (01) ==
LOC: WOUND 10:18
PROVIDERS: ATTEND Internal Medicine
DX: I87.333 Chronic venous hypertension (idiopathic) with ulcer and inflammation of bilateral lower extremity (principal); E11.622 Type 2 diabetes mellitus with other skin ulcer; L97.321 Non-pressure chronic ulcer of left ankle limited to breakdown of skin; L97.811 Non-pressure chronic ulcer of other part of right lower leg limited to breakdown of skin; K21.0 Gastro-esophageal reflux disease with esophagitis; J44.1 Chronic obstructive pulmonary disease with (acute) exacerbation; E66.01 Morbid (severe) obesity due to excess calories; I89.0 Lymphedema, not elsewhere classified; E78.5 Hyperlipidemia, unspecified; E11.22 Type 2 diabetes mellitus with diabetic chronic kidney disease; I13.0 Hypertensive heart and chronic kidney disease with heart failure and stage 1 through stage 4 chronic kidney disease, or unspecified chronic kidney disease; N18.9 Chronic kidney disease, unspecified; Z68.44 Body mass index [BMI] 60.0-69.9, adult; Z85.850 Personal history of malignant neoplasm of thyroid

== ENCOUNTER 2016-11-02 10:15 | Outpatient (CLI) | payer MEDICARE ==
[2016-11-02] MEDS ORDERED: XYLOCAINE TOPICAL 4% TP ONE ×2 (10:23→10:24)
== END 2016-11-02 10:16 | disposition home or self-care (01) ==
LOC: WOUND 10:15
PROVIDERS: ATTEND Internal Medicine
DX: I87.333 Chronic venous hypertension (idiopathic) with ulcer and inflammation of bilateral lower extremity (principal); E11.622 Type 2 diabetes mellitus with other skin ulcer; L97.821 Non-pressure chronic ulcer of other part of left lower leg limited to breakdown of skin; L97.811 Non-pressure chronic ulcer of other part of right lower leg limited to breakdown of skin; I89.0 Lymphedema, not elsewhere classified; K21.0 Gastro-esophageal reflux disease with esophagitis; J44.1 Chronic obstructive pulmonary disease with (acute) exacerbation; E66.01 Morbid (severe) obesity due to excess calories; E78.5 Hyperlipidemia, unspecified; E11.22 Type 2 diabetes mellitus with diabetic chronic kidney disease; I13.0 Hypertensive heart and chronic kidney disease with heart failure and stage 1 through stage 4 chronic kidney disease, or unspecified chronic kidney disease; N18.9 Chronic kidney disease, unspecified; I50.9 Heart failure, unspecified; Z68.44 Body mass index [BMI] 60.0-69.9, adult; Z85.850 Personal history of malignant neoplasm of thyroid
CPT/HCPCS: 11055

== ENCOUNTER 2016-11-10 09:43 | Outpatient (CLI) | payer MEDICARE ==
[2016-11-10] MEDS ORDERED: XYLOCAINE TOPICAL 4% TP ONE (10:08)
== END 2016-11-10 09:44 | disposition home or self-care (01) ==
LOC: WOUND 09:43
PROVIDERS: ATTEND Surgery
DX: E11.622 Type 2 diabetes mellitus with other skin ulcer (principal); L97.321 Non-pressure chronic ulcer of left ankle limited to breakdown of skin; E78.5 Hyperlipidemia, unspecified; E11.22 Type 2 diabetes mellitus with diabetic chronic kidney disease; I13.0 Hypertensive heart and chronic kidney disease with heart failure and stage 1 through stage 4 chronic kidney disease, or unspecified chronic kidney disease; N18.9 Chronic kidney disease, unspecified; I89.0 Lymphedema, not elsewhere classified; I10 Essential (primary) hypertension; J44.9 Chronic obstructive pulmonary disease, unspecified; E66.9 Obesity, unspecified; Z85.850 Personal history of malignant neoplasm of thyroid; Z68.44 Body mass index [BMI] 60.0-69.9, adult

== ENCOUNTER 2016-11-18 08:29 | Outpatient (CLI) | payer MEDICARE | END 2016-11-18 08:30 | disposition home or self-care (01) | LOC: WOUND 08:29 | PROVIDERS: ATTEND Surgery | DX: E11.622 Type 2 diabetes mellitus with other skin ulcer (principal); I87.2 Venous insufficiency (chronic) (peripheral); L97.321 Non-pressure chronic ulcer of left ankle limited to breakdown of skin; I89.0 Lymphedema, not elsewhere classified; K21.0 Gastro-esophageal reflux disease with esophagitis; J44.1 Chronic obstructive pulmonary disease with (acute) exacerbation; E66.01 Morbid (severe) obesity due to excess calories; E11.22 Type 2 diabetes mellitus with diabetic chronic kidney disease; I13.0 Hypertensive heart and chronic kidney disease with heart failure and stage 1 through stage 4 chronic kidney disease, or unspecified chronic kidney disease; N18.9 Chronic kidney disease, unspecified; I50.9 Heart failure, unspecified; Z85.850 Personal history of malignant neoplasm of thyroid | CPT/HCPCS: 99213; G0463 ==

== ENCOUNTER 2017-05-14 08:08 | Outpatient (CLI) | payer MEDICARE | END 2017-05-14 08:09 | disposition home or self-care (01) | LOC: WOUND 08:08 | PROVIDERS: ATTEND Podiatrist | DX: E11.622 Type 2 diabetes mellitus with other skin ulcer (principal); L97.322 Non-pressure chronic ulcer of left ankle with fat layer exposed; I89.0 Lymphedema, not elsewhere classified; E66.9 Obesity, unspecified; E11.22 Type 2 diabetes mellitus with diabetic chronic kidney disease; I13.2 Hypertensive heart and chronic kidney disease with heart failure and with stage 5 chronic kidney disease, or end stage renal disease; I50.9 Heart failure, unspecified; N18.6 End stage renal disease; J44.9 Chronic obstructive pulmonary disease, unspecified; E78.5 Hyperlipidemia, unspecified; Z99.2 Dependence on renal dialysis; Z68.29 Body mass index [BMI] 29.0-29.9, adult; Z85.850 Personal history of malignant neoplasm of thyroid | CPT/HCPCS: 11042; G0463 ==

== ENCOUNTER 2017-05-21 08:06 | Outpatient (CLI) | payer MEDICARE | END 2017-05-21 08:07 | disposition home or self-care (01) | LOC: WOUND 08:06 | PROVIDERS: ATTEND Podiatrist | DX: E11.622 Type 2 diabetes mellitus with other skin ulcer (principal); L97.322 Non-pressure chronic ulcer of left ankle with fat layer exposed; I89.0 Lymphedema, not elsewhere classified; E66.9 Obesity, unspecified; E11.22 Type 2 diabetes mellitus with diabetic chronic kidney disease; I13.2 Hypertensive heart and chronic kidney disease with heart failure and with stage 5 chronic kidney disease, or end stage renal disease; I50.9 Heart failure, unspecified; N18.6 End stage renal disease; J44.9 Chronic obstructive pulmonary disease, unspecified; E78.5 Hyperlipidemia, unspecified; Z99.2 Dependence on renal dialysis; Z68.29 Body mass index [BMI] 29.0-29.9, adult; Z85.850 Personal history of malignant neoplasm of thyroid ==

== ENCOUNTER 2017-08-31 12:43 | Observation (INO) | payer MEDICARE ==
--- NOTE | 2017-08-31 13:45 | Cat Scan Report ---
HEAD CT WITHOUT CONTRAST INDICATION: Neurologic deficits less than 6 hours or symptoms present upon awakening. COMPARISON: 07/24/2016 FINDINGS: Noncontrast head CT demonstrates normal ventricles and sulci without acute or recent infarct, hemorrhage, mass effect or midline shift. Mild, benign bilateral basal ganglia calcifications. No abnormal extra-axial fluid collections. Posterior fossa structures and basilar cisterns appear within normal limits. Possible hemoconcentration. Normal imaged eye globes. Slight left sphenoid and left maxillary sinus mucosal thickening. Clear remainder imaged paranasal sinuses and mastoid air cells. Largely edentulous jaw with few anterior mandibular teeth and small dental fillings remaining. Intact calvarium. Normal scalp soft tissues. CONCLUSION: No acute intracranial CT abnormality with few other findings, as above. MRI is more sensitive for detection of acute infarct and may be useful for further evaluation in the setting of a focal neurologic deficit. I phoned the above results to Dr. An in the ER, 1:35 PM, 08/31/2017. Thank you for the opportunity to participate in this patient's care.
[2017-08-31] MEDS ORDERED: TYLENOL PO ONE (13:55)
[2017-08-31] MEDS ORDERED: NITROSTAT SL PRN (13:55)
--- NOTE | 2017-08-31 13:56 | Emergency Department Report ---
ED General Adult HPI - General Chief complaint: Syncope Stated complaint: SYNCOPE Time Seen by Provider: 08/31/17 13:30 Source: patient, EMS (ems notes not available at time of chart dictation), RN notes reviewed, old records reviewed Mode of arrival: Stretcher Limitations: No Limitations - History of Present Illness Initial comments: Nephrology: Dr. Ramirez This is a 56-year-old female who is unknown to this provider previously. Past medical history includes obesity, hypertension, diabetes, lymphedema, congestive heart failure, hypothyroidism, and seizure disease on dialysis, DVT in the left lower leg. Patient has a right upper extremity AV fistula. Patient presents to the ER with EMS with resolved altered mental status and syncope after her dialysis. Patient reports being in her usual state of health , had completed her dialysis session, and was feeling frustrated about something. She reports the next thing she knew she was on the floor. Prior to the event, she denies sudden severe thunderclap headache, chest pain, abdominal pain, shortness of breath. Patient reports her legs remain swollen at baseline. She has no midline neck pain. -: Sudden Consistency: now resolved Improves with: none Worsens with: none Associated Symptoms: confusion (now resolved), headaches, malaise, syncope (now resolved), weakness (generalized global weakness). denies: chest pain, cough, diaphoresis, fever/chills, loss of appetite, nausea/vomiting, rash, shortness of breath - Related Data Home Medications Medication Instructions Recorded Confirmed Last Taken Ranitidine HCl [Zantac 75 MG TAB] 150 mg PO QDAY 11/03/14 04/20/16 03/06/15 Topiramate [Topamax] 100 mg PO BID 11/09/14 04/20/16 03/06/15 Levothyroxine [Synthroid] 112 mcg PO DAILY@0600 03/07/15 04/20/16 03/06/15 Simvastatin [Zocor TAB] 40 mg PO QHS 03/07/15 04/20/16 03/06/15 ALBUTEROL Inhaler [ProAir HFA 2 puff IH QID PRN 12/10/15 04/20/16 Unknown Inhaler] Gabapentin [Neurontin] 300 mg PO Q8HR 12/10/15 04/20/16 Unknown Nortriptyline [Pamelor] 10 mg PO QHS 12/10/15 04/20/16 Unknown Ropinirole HCl [Requip] 0.5 mg PO TID 12/10/15 04/20/16 Unknown oxyCODONE /ACETAMINOPHEN [Percocet 1 tab PO Q4HR 12/10/15 04/20/16 Unknown 5/325 mg] Previous Rx's Medication Instructions Recorded Last Taken Type Ciprofloxacin HCl [Ciprofloxacin 250 mg PO BID #10 tablet 04/25/16 Unknown Rx TAB] Allergies Allergy/AdvReac Type Severity Reaction Status Date / Time clindamycin Allergy Severe Itching Verified 11/05/14 13:20 ibuprofen Allergy Unknown Verified 11/03/14 08:12 Penicillins Allergy Swelling Verified 04/20/16 11:58 ED Review of Systems ROS: Stated complaint: SYNCOPE Other details as noted in HPI Comment: All other systems reviewed and negative ED Past Medical Hx - Past Medical History Hx Hypertension: Yes Hx CVA: No (TIA) Hx Congestive Heart Failure: Yes Hx Diabetes: Yes (1985, not on meds) Hx Deep Vein Thrombosis: Yes (LUE) Hx GERD: Yes Hx Renal Disease: Yes Hx Arthritis: Yes Hx Headaches / Migraines: Yes Hx Seizures: No Hx Asthma: No Hx COPD: Yes Additional medical history: TIA, Parkinsons. anemia. LYMPHEDEMA - Surgical History Hx Pacemaker: No Hx Internal Defibrillator: No Additional Surgical History: x 3. carpel tunnel x 2. eye surgery. gastric bypass. thyroidectomy - Social History Smoking Status: Unknown if ever smoked - Medications Home Medications: Home Medications Medication Instructions Recorded Confirmed Last Taken Type Ranitidine HCl [Zantac 75 MG TAB] 150 mg PO QDAY 11/03/14 04/20/16 03/06/15 History Topiramate [Topamax] 100 mg PO BID 11/09/14 04/20/16 03/06/15 History Levothyroxine [Synthroid] 112 mcg PO DAILY@0600 03/07/15 04/20/16 03/06/15 History Simvastatin [Zocor TAB] 40 mg PO QHS 03/07/15 04/20/16 03/06/15 History ALBUTEROL Inhaler [ProAir HFA 2 puff IH QID PRN 12/10/15 04/20/16 Unknown History Inhaler] Gabapentin [Neurontin] 300 mg PO Q8HR 12/10/15 04/20/16 Unknown History Nortriptyline [Pamelor] 10 mg PO QHS 12/10/15 04/20/16 Unknown History Ropinirole HCl [Requip] 0.5 mg PO TID 12/10/15 04/20/16 Unknown History oxyCODONE /ACETAMINOPHEN [Percocet 1 tab PO Q4HR 12/10/15 04/20/16 Unknown History 5/325 mg] Ciprofloxacin HCl [Ciprofloxacin 250 mg PO BID #10 tablet 04/25/16 Unknown Rx TAB] ED Physical Exam - General Limitations: No Limitations General appearance: alert, in no apparent distress - Head Head exam: Present: atraumatic, normocephalic - Eye Eye exam: Present: normal appearance, EOMI. Absent: nystagmus - ENT ENT exam: Present: normal exam, normal orophraynx, mucous membranes moist, normal external ear exam - Neck Neck exam: Present: normal inspection, full ROM. Absent: tenderness, meningismus - Respiratory Respiratory exam: Present: normal lung sounds bilaterally. Absent: respiratory distress - Cardiovascular Cardiovascular Exam: Present: regular rate, normal rhythm, normal heart sounds. Absent: bradycardia, tachycardia, irregular rhythm, systolic murmur, diastolic murmur, rubs, gallop - GI/Abdominal GI/Abdominal exam: Present: soft, other (there is a nontender well- circumscribed mass in the right lower quadrant of the abdominal wall, patient reports this is chronic). Absent: distended, tenderness, guarding, rebound, rigid, pulsatile mass - Extremities Exam Extremities exam: Present: normal inspection, full ROM, normal capillary refill , pedal edema (chronic lymphedema noted in the lower extremities). Absent: tenderness, calf tenderness - Back Exam Back exam: Present: normal inspection, full ROM. Absent: tenderness, CVA tenderness (R), paraspinal tenderness, vertebral tenderness - Neurological Exam Neurological exam: Present: alert, oriented X3, CN II-XII intact, other ( Extraocular movements intact. Tongue midline. No facial droop. Facial sensation intact to light touch in the V1, V2, V3 distribution bilaterally. 5 and 5 strength in 4 extremities.. Sensation is intact to light touch in 4 extremities.). Absent: motor sensory deficit - Psychiatric Psychiatric exam: Present: normal affect, normal mood - Skin Skin exam: Present: warm, dry, intact, normal color. Absent: rash ED Course Vital Signs 08/31/17 08/31/17 08/31/17 13:00 13:22 13:30 Temperature 98.6 F Pulse Rate 87 84 78 Respiratory 20 10 L 9 L Rate Blood Pressure 169/85 Blood Pressure [Left] O2 Sat by Pulse 94 98 98 Oximetry 08/31/17 08/31/17 08/31/17 13:31 13:32 13:46 Temperature Pulse Rate 78 Respiratory 10 L Rate Blood Pressure Blood Pressure 146/81 [Left] O2 Sat by Pulse 95 97 Oximetry 08/31/17 08/31/17 14:00 14:35 Temperature 98.4 F Pulse Rate 77 Respiratory 17 Rate Blood Pressure 146/81 Blood Pressure [Left] O2 Sat by Pulse 93 Oximetry - Reevaluation(s) Reevaluation #1: 08/31/17 15:32 Dr Toure accepts the patient to the medical service ED Medical Decision Making - Lab Data Result diagrams: 08/31/17 14:04 08/31/17 14:04 Vital Signs 08/31/17 08/31/17 08/31/17 13:00 13:22 13:30 Temperature 98.6 F Pulse Rate 87 84 78 Respiratory 20 10 L 9 L Rate Blood Pressure 169/85 Blood Pressure [Left] O2 Sat by Pulse 94 98 98 Oximetry 08/31/17 08/31/17 08/31/17 13:31 13:32 13:46 Temperature Pulse Rate 78 Respiratory 10 L Rate Blood Pressure Blood Pressure 146/81 [Left] O2 Sat by Pulse 95 97 Oximetry 08/31/17 08/31/17 14:00 14:35 Temperature 98.4 F Pulse Rate 77 Respiratory 17 Rate Blood Pressure 146/81 Blood Pressure [Left] O2 Sat by Pulse 93 Oximetry Lab Results 08/31/17 08/31/17 08/31/17 Range/Units 14:04 14:04 14:04 WBC 4.0 L (4.5-11.0) K/mm3 RBC 4.07 (3.65-5.03) M/mm3 Hgb 13.4 (10.1-14.3) gm/dl Hct 41.2 (30.3-42.9) % MCV 101 H (79-97) fl MCH 33 H (28-32) pg MCHC 33 (30-34) % RDW 17.1 H (13.2-15.2) % Plt Count 155 (140-440) K/mm3 Lymph % (Auto) 18.5 (13.4-35.0) % Lane % (Auto) 10.7 H (0.0-7.3) % Eos % (Auto) 7.5 H (0.0-4.3) % Baso % (Auto) 1.1 (0.0-1.8) % Lymph # 0.7 L (1.2-5.4) K/mm3 Lane # 0.4 (0.0-0.8) K/mm3 Eos # 0.3 (0.0-0.4) K/mm3 Baso # 0.0 (0.0-0.1) K/mm3 Seg Neutrophils % 62.2 (40.0-70.0) % Seg Neutrophils # 2.5 (1.8-7.7) K/mm3 PT 15.8 H (12.2-14.9) Sec. INR 1.19 H (0.87-1.13) APTT 56.1 H (24.2-36.6) Sec. Thrombin Time (15.1-19.6) Sec. Sodium 137 (137-145) mmol/L Potassium 3.6 (3.6-5.0) mmol/L Chloride 97.4 L (98-107) mmol/L Carbon Dioxide 27 (22-30) mmol/L Anion Gap 16 mmol/L BUN 24 H (7-17) mg/dL Creatinine 3.1 H (0.7-1.2) mg/dL Estimated GFR 19 ml/min BUN/Creatinine Ratio 8 % Glucose 77 (65-100) mg/dL POC Glucose (70-105) Calcium 8.2 L (8.4-10.2) mg/dL Troponin T 0.025 (0.00-0.029) ng/mL Urine Color (Yellow) Urine Turbidity (Clear) Urine pH (5.0-7.0) Ur Specific [place] (1.003-1.030) Urine Protein (Negative) mg/dL Urine Glucose (UA) (Negative) mg/dL Urine Ketones (Negative) mg/dL Urine Blood (Negative) Urine Nitrite (Negative) Urine Bilirubin (Negative) Urine Urobilinogen (<2.0) mg/dL Ur Leukocyte Esterase (Negative) Urine WBC (Auto) (0.0-6.0) /HPF Urine RBC (Auto) (0.0-6.0) /HPF U Epithel Cells (Auto) (0-13.0) /HPF Urine Bacteria (Auto) (Negative) /HPF Urine Mucus /HPF 08/31/17 08/31/17 08/31/17 Range/Units 14:04 14:26 14:51 WBC (4.5-11.0) K/mm3 RBC (3.65-5.03) M/mm3 Hgb (10.1-14.3) gm/dl Hct (30.3-42.9) % MCV (79-97) fl MCH (28-32) pg MCHC (30-34) % RDW (13.2-15.2) % Plt Count (140-440) K/mm3 Lymph % (Auto) (13.4-35.0) % Lane % (Auto) (0.0-7.3) % Eos % (Auto) (0.0-4.3) % Baso % (Auto) (0.0-1.8) % Lymph # (1.2-5.4) K/mm3 Lane # (0.0-0.8) K/mm3 Eos # (0.0-0.4) K/mm3 Baso # (0.0-0.1) K/mm3 Seg Neutrophils % (40.0-70.0) % Seg Neutrophils # (1.8-7.7) K/mm3 PT (12.2-14.9) Sec. INR (0.87-1.13) APTT (24.2-36.6) Sec. Thrombin Time 25.5 H (15.1-19.6) Sec. Sodium (137-145) mmol/L Potassium (3.6-5.0) mmol/L Chloride (98-107) mmol/L Carbon Dioxide (22-30) mmol/L Anion Gap mmol/L BUN (7-17) mg/dL Creatinine (0.7-1.2) mg/dL Estimated GFR ml/min BUN/Creatinine Ratio % Glucose (65-100) mg/dL POC Glucose 68 L 143 H (70-105) Calcium (8.4-10.2) mg/dL Troponin T (0.00-0.029) ng/mL Urine Color (Yellow) Urine Turbidity (Clear) Urine pH (5.0-7.0) Ur Specific [place] (1.003-1.030) Urine Protein (Negative) mg/dL Urine Glucose (UA) (Negative) mg/dL Urine Ketones (Negative) mg/dL Urine Blood (Negative) Urine Nitrite (Negative) Urine Bilirubin (Negative) Urine Urobilinogen (<2.0) mg/dL Ur Leukocyte Esterase (Negative) Urine WBC (Auto) (0.0-6.0) /HPF Urine RBC (Auto) (0.0-6.0) /HPF U Epithel Cells (Auto) (0-13.0) /HPF Urine Bacteria (Auto) (Negative) /HPF Urine Mucus /HPF 08/31/17 Range/Units Unknown WBC (4.5-11.0) K/mm3 RBC (3.65-5.03) M/mm3 Hgb (10.1-14.3) gm/dl Hct (30.3-42.9) % MCV (79-97) fl MCH (28-32) pg MCHC (30-34) % RDW (13.2-15.2) % Plt Count (140-440) K/mm3 Lymph % (Auto) (13.4-35.0) % Lane % (Auto) (0.0-7.3) % Eos % (Auto) (0.0-4.3) % Baso % (Auto) (0.0-1.8) % Lymph # (1.2-5.4) K/mm3 Lane # (0.0-0.8) K/mm3 Eos # (0.0-0.4) K/mm3 Baso # (0.0-0.1) K/mm3 Seg Neutrophils % (40.0-70.0) % Seg Neutrophils # (1.8-7.7) K/mm3 PT (12.2-14.9) Sec. INR (0.87-1.13) APTT (24.2-36.6) Sec. Thrombin Time (15.1-19.6) Sec. Sodium (137-145) mmol/L Potassium (3.6-5.0) mmol/L Chloride (98-107) mmol/L Carbon Dioxide (22-30) mmol/L Anion Gap mmol/L BUN (7-17) mg/dL Creatinine (0.7-1.2) mg/dL Estimated GFR ml/min BUN/Creatinine Ratio % Glucose (65-100) mg/dL POC Glucose (70-105) Calcium (8.4-10.2) mg/dL Troponin T (0.00-0.029) ng/mL Urine Color Yellow (Yellow) Urine Turbidity Clear (Clear) Urine pH 5.0 (5.0-7.0) Ur Specific [place] 1.020 (1.003-1.030) Urine Protein 100 mg/dl (Negative) mg/dL Urine Glucose (UA) Neg (Negative) mg/dL Urine Ketones Tr (Negative) mg/dL Urine Blood Neg (Negative) Urine Nitrite Neg (Negative) Urine Bilirubin Neg (Negative) Urine Urobilinogen 2.0 (<2.0) mg/dL Ur Leukocyte Esterase Neg (Negative) Urine WBC (Auto) 3.0 (0.0-6.0) /HPF Urine RBC (Auto) 5.0 (0.0-6.0) /HPF U Epithel Cells (Auto) 5.0 (0-13.0) /HPF Urine Bacteria (Auto) 1+ (Negative) /HPF Urine Mucus Few /HPF - EKG Data EKG shows normal: sinus rhythm Rate: normal - EKG Data 08/31/17 15:21 Sinus, 76 beats per minute, poor R wave progression, QTC prolonged, left axis deviation, abnormal EKG, not a stemi Appears unchanged from prior EKG from 07/24/2016. - Radiology Data Radiology results: report reviewed, image reviewed Noncontrast CT scan of the brain is negative for acute disease X-ray of the chest shows cardiomegaly, chronic scarring, no acute disease - Medical Decision Making Differential diagnosis, including but not limited to: Intracranial hemorrhage, pneumonia, urinary tract infection, transient ischemic attacks, dialysis disequilibrium syndrome, arrhythmia, structural cardiac disease Assessment and plan: 56-year-old female with episode of syncope and unresponsiveness after completing her dialysis. She is afebrile with reassuring vital signs at this time, clinically sober, with an anion score of 0 , and a Se[place] Coma Scale of 15.Patient is clinically sober at this time. The cervical spine is cleared through nexus and [place] c spine rule Patient most likely had loss of consciousness secondary to completing her dialysis. She is not a TPA candidate given her NIH score of 0 at this time. I doubt pulmonary embolus given her lack of chest pain, shortness of breath and hypoxia, and the temporal context of her syncope related to her loss of consciousness. She will be admitted to the medical service for observation. Case was discussed with covering lab clerk, Paige Mane for Dr Lashae Hernandez, and Dwayne Sherman for nephrology, covering for Dr Ramirez. The cardiology team and nephrology team respectively will follow in consultation. Critical care attestation.: If time is entered above; I have spent that time in minutes in the direct care of this critically ill patient, excluding procedure time. ED Disposition Clinical Impression: CKD (chronic kidney disease), Syncope Disposition: 09 OP ADMIT IP TO THIS HOSP Is pt being admited?: Yes Does the pt Need Aspirin: Yes Condition: Good Instructions: Syncope (ED) Referrals: PRIMARY CARE, [Primary Care Provider] - 3-5 Days
[2017-08-31 14:20] LABS: Basophils % (Auto) 1.1 % (0.0-1.8); Eosinophils # (Auto) 0.3 K/mm3 (0.0-0.4); Eosinophils % (Auto) 7.5 % (0.0-4.3); Hematocrit 41.2 % (30.3-42.9); Hemoglobin 13.4 gm/dl (10.1-14.3); Lymphocytes # (Auto) 0.7 K/mm3 (1.2-5.4); Lymphocytes % (Auto) 18.5 % (13.4-35.0); Mean Corpuscular HGB Conc 33 % (30-34); Mean Corpuscular Hemoglobin 33 pg (28-32); Mean Corpuscular Volume 101 fl (79-97); Monocytes # (Auto) 0.4 K/mm3 (0.0-0.8); Monocytes % (Auto) 10.7 % (0.0-7.3); Platelet Count 155 K/mm3 (140-440); Red Blood Count 4.07 M/mm3 (3.65-5.03); Red Cell Distribution Width 17.1 % (13.2-15.2)
--- NOTE | 2017-08-31 14:26 | XRay Report ---
PORTABLE CHEST INDICATION: Chest pain, syncope. COMPARISON: 07/24/2016 FINDINGS: Portable, frontal chest radiograph demonstrates stable cardiomediastinal silhouette/mild cardiomegaly, aortic knob calcifications and osseous structures. Bilateral mid to lower lung scarring minimally more prominent. Otherwise clear lungs. Right axillary surgical clips may be new. CONCLUSION: Mild cardiomegaly and scarring again noted, as described. Please correlate. Thank you for the opportunity to participate in this patient's care.
[2017-08-31 14:30] LABS: INR 1.19 (0.87-1.13)
[2017-08-31 14:31] LABS: Partial Thromboplastin Time 56.1 Sec. (24.2-36.6)
[2017-08-31] MEDS ORDERED: D50W (25GM) Syringe IV ONE (14:35)
[2017-08-31 14:39] LABS: Calcium 8.2 mg/dL (8.4-10.2)
[2017-08-31 14:45] LABS: Bacteria,Urine 1+ /HPF (Negative); Bilirubin,Urine NEG (Negative); Blood,Urine NEG (Negative); Mucus,Urine FEW /HPF
[2017-08-31 14:46] LABS: Color,Urine Yellow (Yellow)
[2017-08-31 17:25] VITALS: BP 139/82
--- NOTE | 2017-08-31 17:39 | Event Note ---
Date: 08/31/17 Patient passed out briefly for a sec while standing after Dialysis. Patient attributes to volume being taken out during HD No chest pain or confusion Diagnosis Volume depletion causing near syncope Outpationt follow up with Cardiolgy Tel number given
== END 2017-08-31 18:03 | disposition home or self-care (01) ==
LOC: ED 12:43 → INTOOBSV 15:33 → 3A 15:33 → UNDODISIN 17:50
PROVIDERS: ADMIT Internal Medicine; ATTEND Internal Medicine
DX: I13.2 Hypertensive heart and chronic kidney disease with heart failure and with stage 5 chronic kidney disease, or end stage renal disease (principal); N18.6 End stage renal disease; I50.9 Heart failure, unspecified; E11.22 Type 2 diabetes mellitus with diabetic chronic kidney disease; R55 Syncope and collapse; G40.909 Epilepsy, unspecified, not intractable, without status epilepticus; E03.9 Hypothyroidism, unspecified; G20 Parkinson's disease; K21.9 Gastro-esophageal reflux disease without esophagitis; J44.9 Chronic obstructive pulmonary disease, unspecified; Z86.73 Personal history of transient ischemic attack (TIA), and cerebral infarction without residual deficits; Z79.84 Long term (current) use of oral hypoglycemic drugs
CPT/HCPCS: 36415; 70450; 71045; 80048; 81001; 82962; 84484; 85025; 85610; 85670; 85730; 87086; 93005; 93010; 96374; 99285; G0378

== ENCOUNTER 2018-04-14 06:24 | Emergency (ER) | payer MEDICARE ==
--- NOTE | 2018-04-14 07:22 | Emergency Department Report ---
ED General Adult HPI - General Chief complaint: Medical Clearance Stated complaint: PORT FOR DIAYLSIS OUT Time Seen by Provider: 04/14/18 06:58 Source: patient Mode of arrival: Stretcher Limitations: No Limitations - History of Present Illness Initial comments: 57-year-old female with multiple chronic medical conditions and end-stage disease on dialysis Wednesday, , and Wednesday presents to the hospital because her chest vas cath fell out while she was sleeping. Patient has a right upper arm dialysis access with a palpable thrill. She states that last month doctor's thought that this site was clotted and therefore left chest wall vas cath was placed for dialysis. Subsequent imaging of AV access site revealed that there was not any thrombosis however, she was not clear to begin using this AV site again and her dialysis has been continued using her vas cath since mid March. Patient has been compliant with her dialysis is due today. She denies shortness of breath, persistent bleeding, or pain. She has chronic lymphedema. Curriculum Advisory Teacher: Dr. Ramirez. She does not know the name of her specific vascular physician - Related Data Home Medications Medication Instructions Recorded Confirmed Last Taken Amlodipine Besylate [Norvasc] 10 mg PO QDAY 08/31/17 08/31/17 Unknown Levothyroxine Sodium [Synthroid] 112 mcg PO QDAY 08/31/17 08/31/17 Unknown Losartan [Cozaar] 100 mg PO QDAY 08/31/17 08/31/17 Unknown Mirtazapine [Remeron] 15 mg PO HS 08/31/17 08/31/17 Unknown Ranitidine HCl [Zantac 150 MG TAB] 150 mg PO BID 08/31/17 08/31/17 Unknown Sitagliptin Phosphate [Januvia] 25 mg PO QDAY 08/31/17 08/31/17 Unknown Topiramate [Topamax] 50 mg PO BID 08/31/17 08/31/17 Unknown levETIRAcetam [Keppra TAB] 1,000 mg PO BID 08/31/17 08/31/17 Unknown Allergies Allergy/AdvReac Type Severity Reaction Status Date / Time clindamycin Allergy Severe Itching Verified 11/05/14 13:20 ibuprofen Allergy Unknown Verified 11/03/14 08:12 Penicillins Allergy Swelling Verified 04/20/16 11:58 ED Review of Systems ROS: Stated complaint: PORT FOR DIAYLSIS OUT Other details as noted in HPI Comment: All other systems reviewed and negative ED Past Medical Hx - Past Medical History Previous Medical History?: Yes Hx Hypertension: Yes Hx CVA: No (TIA) Hx Congestive Heart Failure: Yes Hx Diabetes: Yes (1985, not on meds) Hx Deep Vein Thrombosis: Yes (LUE) Hx GERD: Yes Hx Renal Disease: Yes Hx Arthritis: Yes Hx Headaches / Migraines: Yes Hx Seizures: Yes Hx Asthma: No Hx COPD: Yes Additional medical history: TIA, Parkinsons. anemia. LYMPHEDEMA - Surgical History Past Surgical History?: Yes Hx Pacemaker: No Hx Internal Defibrillator: No Additional Surgical History: x 3. carpel tunnel x 2. eye surgery. gastric bypass. thyroidectomy, right knee X2 - Social History Smoking Status: Never Smoker Substance Use Type: None - Medications Home Medications: Home Medications Medication Instructions Recorded Confirmed Last Taken Type Amlodipine Besylate [Norvasc] 10 mg PO QDAY 08/31/17 08/31/17 Unknown History Levothyroxine Sodium [Synthroid] 112 mcg PO QDAY 08/31/17 08/31/17 Unknown History Losartan [Cozaar] 100 mg PO QDAY 08/31/17 08/31/17 Unknown History Mirtazapine [Remeron] 15 mg PO HS 08/31/17 08/31/17 Unknown History Ranitidine HCl [Zantac 150 MG TAB] 150 mg PO BID 08/31/17 08/31/17 Unknown History Sitagliptin Phosphate [Januvia] 25 mg PO QDAY 08/31/17 08/31/17 Unknown History Topiramate [Topamax] 50 mg PO BID 08/31/17 08/31/17 Unknown History levETIRAcetam [Keppra TAB] 1,000 mg PO BID 08/31/17 08/31/17 Unknown History ED Physical Exam - General Limitations: No Limitations - Other Other exam information: General: No limitations, patient is alert in no acute distress Head exam: Atraumatic, normocephalic Eyes exam: Normal appearance ENT: Moist mucous membrane, normal oropharynx Neck exam: Normal inspection, full range of motion Respiratory exam: Clear to auscultation bilateral, no wheezes, rales, crackles Cardiovascular: Normal rate and rhythm, normal heart sounds. Left upper chest Vas-Cath site without any current bleeding, swelling, or erythema. Abdomen: Soft, nondistended, and nontender, with normal bowel sounds, no rebound, or guarding Extremity: Full range of motion, bilateral lymphedema. Right upper arm AV fistula with positive thrill Back: Normal Inspection, full range of motion, no tenderness Neurologic: Alert, oriented x3, cranial nerves intact, no motor or sensory deficit Psychiatric: normal affect, normal mood Skin: Warm, dry, intact ED Course Vital Signs 04/14/18 04/14/18 04/14/18 06:36 06:41 06:45 Temperature 98.5 F Pulse Rate 65 Respiratory 16 Rate Blood Pressure 130/71 130/71 Blood Pressure [Left] O2 Sat by Pulse 100 99 95 Oximetry 04/14/18 04/14/18 04/14/18 06:59 07:00 07:29 Temperature 98.7 F Pulse Rate 66 Respiratory 18 14 Rate Blood Pressure 122/61 Blood Pressure 128/71 [Left] O2 Sat by Pulse 94 97 Oximetry - Consultations Consultation #1: 04/14/18 09:[address] Den sue. Since patient is stable and does not require emergent dialysis she may be discharged to see her vascular doctor Dr. Mosher for reassessment of vascular access. ED Medical Decision Making - Lab Data Result diagrams: 04/14/18 07:55 04/14/18 07:55 Lab Results 04/14/18 04/14/18 04/14/18 Range/Units 07:19 07:19 07:19 WBC TNR RBC TNR Hgb TNR Hct TNR MCV TNR MCH TNR MCHC TNR RDW TNR Plt Count TNR Lymph % (Auto) TNR [place] % (Auto) TNR Eos % (Auto) TNR Baso % (Auto) TNR Lymph # TNR [place] # TNR Eos # TNR Baso # TNR Add Manual Diff TNR Seg Neutrophils % TNR Seg Neutrophils # TNR PT 13.1 (12.2-14.9) Sec. INR 0.95 (0.87-1.13) APTT 30.9 (24.2-36.6) Sec. Sodium 140 (137-145) mmol/L Potassium 4.3 (3.6-5.0) mmol/L Chloride 102.7 (98-107) mmol/L Carbon Dioxide 25 (22-30) mmol/L Anion Gap 17 mmol/L BUN 25 H (7-17) mg/dL Creatinine 4.7 H (0.7-1.2) mg/dL Estimated GFR 12 ml/min BUN/Creatinine Ratio 5 % Glucose 90 (65-100) mg/dL Calcium 9.3 (8.4-10.2) mg/dL 04/14/18 04/14/18 Range/Units 07:55 07:55 WBC 4.0 L RBC 3.54 L Hgb 11.4 Hct 35.0 MCV 99 H MCH 32 MCHC 33 RDW 14.4 Plt Count 157 Lymph % (Auto) 24.5 [place] % (Auto) 7.2 Eos % (Auto) 4.1 Baso % (Auto) 0.9 Lymph # 1.0 L [place] # 0.3 Eos # 0.2 Baso # 0.0 Add Manual Diff Seg Neutrophils % 63.3 Seg Neutrophils # 2.5 PT (12.2-14.9) Sec. INR (0.87-1.13) APTT (24.2-36.6) Sec. Sodium 140 (137-145) mmol/L Potassium 4.3 (3.6-5.0) mmol/L Chloride 101.9 (98-107) mmol/L Carbon Dioxide 26 (22-30) mmol/L Anion Gap 16 mmol/L BUN 26 H (7-17) mg/dL Creatinine 4.6 H (0.7-1.2) mg/dL Estimated GFR 12 ml/min BUN/Creatinine Ratio 6 % Glucose 80 (65-100) mg/dL Calcium 9.2 (8.4-10.2) mg/dL - Radiology Data Radiology results: report reviewed AP CHEST: HISTORY: Vascular catheter fell out, due for dialysis Borderline to mild cardiomegaly and minor linear scarring in the lingula are unchanged since 08/31/17. No evidence for pneumonia, pleural fluid or pneumothorax. The bony structures are grossly intact. Right subclavian vascular stent is noted. IMPRESSION: Borderline to mild cardiomegaly. - Medical Decision Making Patient does not have any signs of pulmonary edema, volume overloade, or hyperkalemia. She is stable for discharge to follow up with her vascular doctor. Patient states she can go to Dr. Bob's office upon discharge. Case was discussed with Dr. Dinh - Differential Diagnosis loss of dialysis access, hyperkalemia, volume overload Critical Care Time: No Critical care attestation.: If time is entered above; I have spent that time in minutes in the direct care of this critically ill patient, excluding procedure time. ED Disposition Clinical Impression: Displacement of vascular dialysis catheter, ESRD (end stage renal disease) on dialysis, AV fistula Disposition: TO HOME OR SELFCARE Is pt being admited?: No Does the pt Need Aspirin: No Condition: Stable Instructions: End-Stage Kidney Disease (ED) Additional Instructions: Upon discharge go immediately to Dr. Mosher's office (your vascular surgeon). Contact your laundry attendant and dialysis center for further instructions for continuing your dialysis treatment after your vascular visit Referrals: RAJESH TEJEDA MD [Primary Care Provider] - 3-5 Days KVNG MOSHER MD [Staff Physician] - 04/14/18 Time of Disposition: 09:11
[2018-04-14 07:48] LABS: INR 0.95 (0.87-1.13)
[2018-04-14 07:49] LABS: Partial Thromboplastin Time 30.9 Sec. (24.2-36.6)
[2018-04-14 07:54] LABS: Basophils # (Auto) TNR K/mm3 (0.0-0.1); Basophils % (Auto) TNR % (0.0-1.8); Calcium 9.3 mg/dL (8.4-10.2); Eosinophils # (Auto) TNR K/mm3 (0.0-0.4); Eosinophils % (Auto) TNR % (0.0-4.3); Hematocrit TNR % (30.3-42.9); Hemoglobin TNR gm/dl (10.1-14.3); Lymphocytes # (Auto) TNR K/mm3 (1.2-5.4); Lymphocytes % (Auto) TNR % (13.4-35.0); Mean Corpuscular HGB Conc TNR % (30-34); Mean Corpuscular Volume TNR fl (79-97); Mean Platelet Volume TNR fl (6-12); Monocytes # (Auto) TNR K/mm3 (0.0-0.8); Monocytes % (Auto) TNR % (0.0-7.3); Platelet Count TNR K/mm3 (140-440); Red Blood Count TNR M/mm3 (3.65-5.03); Red Cell Distribution Width TNR % (13.2-15.2)
--- NOTE | 2018-04-14 07:57 | XRay Report ---
AP CHEST: HISTORY: Vascular catheter fell out, due for dialysis Borderline to mild cardiomegaly and minor linear scarring in the lingula are unchanged since 08/31/17. No evidence for pneumonia, pleural fluid or pneumothorax. The bony structures are grossly intact. Right subclavian vascular stent is noted. IMPRESSION: Borderline to mild cardiomegaly.
[2018-04-14 08:24] LABS: Basophils % (Auto) 0.9 % (0.0-1.8); Eosinophils # (Auto) 0.2 K/mm3 (0.0-0.4); Eosinophils % (Auto) 4.1 % (0.0-4.3); Hemoglobin 11.4 gm/dl (10.1-14.3); Lymphocytes % (Auto) 24.5 % (13.4-35.0); Mean Corpuscular HGB Conc 33 % (30-34); Mean Corpuscular Volume 99 fl (79-97); Monocytes # (Auto) 0.3 K/mm3 (0.0-0.8); Monocytes % (Auto) 7.2 % (0.0-7.3); Platelet Count 157 K/mm3 (140-440); Red Blood Count 3.54 M/mm3 (3.65-5.03); Red Cell Distribution Width 14.4 % (13.2-15.2)
[2018-04-14 08:34] LABS: Calcium 9.2 mg/dL (8.4-10.2)
[2018-04-14 09:54] VITALS: BP 131/70
== END 2018-04-14 10:15 | disposition home or self-care (01) ==
LOC: ED 06:24
DX: T82.42XA Displacement of vascular dialysis catheter, initial encounter (principal); E11.22 Type 2 diabetes mellitus with diabetic chronic kidney disease; I13.2 Hypertensive heart and chronic kidney disease with heart failure and with stage 5 chronic kidney disease, or end stage renal disease; I50.9 Heart failure, unspecified; N18.6 End stage renal disease; Z99.2 Dependence on renal dialysis; K21.9 Gastro-esophageal reflux disease without esophagitis; M19.90 Unspecified osteoarthritis, unspecified site; G43.909 Migraine, unspecified, not intractable, without status migrainosus; J44.9 Chronic obstructive pulmonary disease, unspecified; Z86.718 Personal history of other venous thrombosis and embolism; Z88.1 Allergy status to other antibiotic agents; Z88.6 Allergy status to analgesic agent; Z88.0 Allergy status to penicillin
CPT/HCPCS: 36415; 71045; 80048; 85025; 85610; 85730